=== PATIENT | male | born 1965 | race Caucasian/White ===

== ENCOUNTER → 2018-11-17 | Outpatient (CLI) | payer BC ==
[~2018-11-17] MED LIST: ASPI-808 PO; OXYC-529 PO
--- NOTE | 2018-11-17 09:41 | Diagnostic Imaging Report ---
Indication: Mid back pain. Technique: Multiplanar and multisequence acquisitions were acquired through the thoracic spine without the use of gadolinium. Findings: The alignment of thoracic spine is normal. Vertebral body heights are well maintained. There are mild degenerative changes. No fracture or traumatic subluxation. 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 The visualized portions of the spinal cord are normal signal intensity and morphology. The conus medullaris is seen at L1 and is normal in appearance. The subarachnoid space both anterior and posterior to the cord is well-maintained. There is no focal disc extrusion or high-grade spinal stenosis. Impression: Mild thoracic spondylosis, otherwise unremarkable. Dictated by: Dictated on workstation # [id number]
--- NOTE | 2018-11-17 09:51 | Diagnostic Imaging Report ---
PROCEDURE: MRI lumbar spine. TECHNIQUE: Multiplanar, multisequence MRI of the lumbar spine was performed without contrast. INDICATION: Mid and low back pain, right buttock and hip pain. No prior studies are available for comparison. Curvature and alignment of the lumbar spine is normal. There is a marrow replacing lesion involving the L4 vertebral body. This involves the right half of the L4 vertebral body measuring approximately 3.9 cm AP x 4.0 cm transverse. Abnormal soft tissue extends into the right pedicle and appears to be extension of abnormal tissue beyond the confines of the posterior cortex of the vertebral body into the anterior epidural space. This does produce compression upon the thecal sac and narrowing of the central canal. There is also significant narrowing of right lateral recess at this level as well as moderate narrowing of the right neural foramen. Left neural foramen is patent. The remaining levels of the lumbar spine are unremarkable and demonstrate normal vertebral body height and signal intensity. There is fairly normal height and signal intensity to the lumbar intervertebral discs. The conus is unremarkable at the T12-L1 level. T12-L1: Central canal and neural foramina are widely patent. L1-2: Unremarkable. L2-3: There is some mild ligamentous thickening but no central canal or neural foraminal stenosis is seen. L3-4: There is some ligamentous thickening and facet changes but central canal remains patent. Neural foramina are patent. L4-5: There are hypertrophic facet changes and broad-based disc/osteophyte complex. Narrowing by the abnormal marrow replacing lesion of L4 is again noted within the right neural foramen and central canal. L5-S1: There are some degenerative disc changes but no significant central canal or neural foraminal stenosis is seen. Paraspinous tissues are unremarkable. IMPRESSION: There is a expansile marrow replacing lesion involving the L4 vertebral body which extends into the right pedicle as well as demonstrates some extraosseous tissue expansion into the spinal canal and anterior epidural space. This does narrow the central canal as well as right lateral recess and right neural foramen. This is concerning for a neoplastic process such as metastatic disease or myeloma. Dictated by: Dictated on workstation # [id number]
== END ==
LOC: RAD 08:04
PROVIDERS: ATTEND Nurse Practitioner Family
DX: M48.061 Spinal stenosis, lumbar region without neurogenic claudication (principal); M47.26 Other spondylosis with radiculopathy, lumbar region; M47.24 Other spondylosis with radiculopathy, thoracic region
CPT/HCPCS: 72146; 72148

== ENCOUNTER 2018-11-26 06:59 | Day surgery (SDC) | payer BC ==
[2018-11-26] VITALS (10 sets, daily range): BP systolic 106–140; BP diastolic 69–95
[~2018-11-26] VITALS: Ht 170.2 cm; Wt 86.2 kg
--- OUTSIDE RECORDS SUMMARY | 2018-11-26 07:03 | XMS REPORT ---
Author Author ROSAMARIA ONEILL [facility] Address Unknown Care Team Providers Care Magistrate Judge Name Role Phone ROSAMARIA ONEILL Unavailable PROBLEMS Unknown Problems ALLERGIES No Known Allergies ENCOUNTERS Encounter Location Date Diagnosis [facility] [address] [facility] [id number] [id number] Jun, [facility] [id number] [id number] Apr, Dental examination Z01.20 and Caries K02.9 IMMUNIZATIONS No Known Immunizations SOCIAL HISTORY Never Assessed REASON FOR VISIT [facility] PLAN OF CARE Activity Details Follow Up prn Reason:hygiene/reevaluation VITAL SIGNS Blood pressure systolic 145 mmHg 2018-05-15 Blood pressure diastolic 93 mmHg 2018-05-15 MEDICATIONS Medication Instructions Dosage Frequency Start Date End Date Duration Status ibuprofen Active RESULTS No Results PROCEDURES Procedure Date Ordered Result Body Site COMP ORAL EVALUATION - NEW/EST PT May 15, 2018 INTRAORL-PERIAPICAL 1 FILM [id number] May 15, 2018 BITEWINGS - FOUR FILMS May 15, 2018 INTRAORL-PERIAPICAL EA ADD FILM May 15, 2018 EXTRAC ERUPTED TOOTH/EXPOSED ROOT May 15, 2018 PANORAMIC FILM SEE ALSO CODE [id number] May 15, 2018 INSTRUCTIONS MEDICATIONS ADMINISTERED No Known Medications MEDICAL (GENERAL) HISTORY Type Description Date Medical History Irregular heart beat Medical History Nerve and disc damage Medical History Pre hypertesion Surgical History [place] 2013
--- OUTSIDE RECORDS SUMMARY | 2018-11-26 07:03 | XMS REPORT ---
Author Author ROSAMARIA ONEILL [facility] Address Unknown Care Team Providers Care Senior Stereo Compiler Team Lead Name Role Phone ROSAMARIA ONEILL Unavailable PROBLEMS Unknown Problems ALLERGIES No Known Allergies ENCOUNTERS Encounter Location Date Diagnosis [facility] [id number] [phone] Jun, [facility] [address] [id number] [place] [id number] May, Dental examination Z01.20 [facility] [address] [phone] Apr, Dental examination Z01.20 and Caries K02.9 IMMUNIZATIONS No Known Immunizations SOCIAL HISTORY Never Assessed REASON FOR VISIT post op te pain PLAN OF CARE Activity Details Follow Up prn Reason:hygiene VITAL SIGNS Blood pressure systolic 135 mmHg 2018-05-30 Blood pressure diastolic 87 mmHg 2018-05-30 MEDICATIONS Medication Instructions Dosage Frequency Start Date End Date Duration Status ibuprofen Active RESULTS No Results PROCEDURES Procedure Date Ordered Result Body Site INTRAORL-PERIAPICAL 1 FILM [id number] May 30, 2018 TX COMPS - UNUSUL CIRCUMSTANCES RPT May 30, 2018 Billing Notes on claim May 30, 2018 Dental no charge May 30, 2018 INSTRUCTIONS MEDICATIONS ADMINISTERED No Known Medications MEDICAL (GENERAL) HISTORY Type Description Date Medical History Irregular heart beat Medical History Nerve and disc damage Medical History Pre hypertesion Surgical History [place] 2013
--- OUTSIDE RECORDS SUMMARY | 2018-11-26 07:03 | XMS REPORT | Continuity of Care Document ---
Author Organization Unknown Address Unknown Allergies Active Description Code Type Severity Reaction Onset Reported/Identified Relationship to Patient Clinical Status Yes No Known Drug Allergies [id number] Drug Allergy Unknown N/A 01/22/2011 Medications There is no data. 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 Results There is no data. Encounters ACCT No. Visit Date/Time Discharge Status Pt. Type Provider Facility Loc./Unit Complaint [id number] 11/17/2018 08:04:00 11/17/2018 23:59:59 CLS Outpatient MOLLY HYATT APRN [facility] RAD RADICULOPATHY, LUMBAR REGION, LOW BACK PAIN [id number] 03/23/2014 08:00:00 03/23/2014 23:59:59 CLS Outpatient [id number] 11/24/2018 11:18:00 PEN Julio C BRUNNER MD, VADIM [facility] ONC [id number] 07/10/2018 11:45:00 07/10/2018 23:59:59 CLS [facility]
[2018-11-26 07:34] LABS: HEMOGLOBIN 15.6 G/DL (13.3-17.7); MEAN PLATELET VOLUME 11.2 FL (7.4-10.4); RED CELL DISTRIBUTION WIDTH 15.1 % (10.0-14.5); WHITE BLOOD COUNT 21.1 10^3/uL (4.3-11.0)
[2018-11-26 07:48] LABS: INR 0.9 (0.8-1.4); PROTHROMBIN TIME PATIENT 12.6 SEC (12.2-14.7)
[2018-11-26] MEDS ORDERED: NS IV 1000 ML 1,000 ML IV STA (08:07)
[2018-11-26] MEDS ORDERED: fentaNYL INJECTION 100 MCG/2 ML AMP IVP ONE (08:15)
[2018-11-26] MEDS ORDERED: MIDAZOLAM 2 MG/2 ML (VERSED) VIAL IVP ONE (08:15)
[2018-11-26] MEDS ORDERED: LIDOCAINE 1% INJ 20 ML 20 ML VIAL INJ ONE (08:15)
[2018-11-26] MEDS ORDERED: ASPI-808 PO (09:40)
[2018-11-26] MEDS ORDERED: OXYC-529 PO (09:45)
[2018-11-26] MEDS ORDERED: HYDROcodone/APAP 5 MG/325 MG (LORTAB) TAB PO PRN (10:15)
--- NOTE | 2018-11-26 12:02 | Diagnostic Imaging Report ---
INDICATION: Mass in the L4 vertebral body. TECHNIQUE AND FINDINGS: After explaining the risks, benefits, and alternatives of the procedure to the patient, written consent was obtained. The patient was placed on the CT scanner in the prone position. Conscious sedation was performed with 1 mg of Versed and 75 mcg of fentanyl under constant nursing supervision from 0931 to [address] scan was obtained for localization purposes. The patient's back was prepped and draped utilizing maximal sterile barrier technique. Local anesthesia was obtained with 2% lidocaine. An 18-gauge Temno needle was advanced in a transpedicular fashion into the L4 vertebral body. The first core biopsy obtained was sent for flow cytometry. Three subsequent cores were sent for cytology. A fine-needle aspiration was also performed. Following this, the needle was removed and adequate hemostasis was obtained. The patient tolerated the procedure well and left the Department in stable condition. IMPRESSION: Successful CT-guided biopsy of the L4 vertebral body as described. Dictated by: Dictated on workstation # [id number]
--- NOTE | 2018-11-26 12:15 | NUR ---
TAKING PO FLUIDS WITHOUT PROBLEM. ALERT, STATES HE HAS "THE USUAL BACK PAIN, BUT NOTHING NEW". OPSITE OVER GAUZE DSG REMAINS D/I TO LOW BACK PROCEDURE SITE, RIGHT SIDE OF SPINE. STATES HE IS READY FOR DISMISSAL. VOIDED PRIOR TO DISMISSAL, GAIT STEADY WITH CANE.
== END 2018-11-26 12:15 | disposition home or self-care (01) ==
LOC: RAD 06:59
PROVIDERS: ATTEND Internal Medicine Hematology & Oncology
DX: M89.9 Disorder of bone, unspecified (principal); M54.5 Low back pain; F17.290 Nicotine dependence, other tobacco product, uncomplicated
CPT/HCPCS: 36415; 77012; 85027; 85610; 85730; 99156

== ENCOUNTER → 2018-12-04 | Outpatient (CLI) | payer BC ==
--- NOTE | 2018-12-04 19:22 | Diagnostic Imaging Report ---
INDICATION: Multiple myeloma. TIME OF EXAM: 12:13 p.m. FINDINGS: Skeletal survey was performed. Calvarium is unremarkable. There are degenerative changes throughout the cervical, thoracic, and lumbar spine. No osteolytic or blastic lesions are seen. The ribs are unremarkable. Shoulder girdles are unremarkable. Long bones of upper and lower extremities are unremarkable. No osteolytic lesions are seen. IMPRESSION: Unremarkable skeletal survey. No osteolytic lesions are seen. Dictated by: Dictated on workstation # [id number]
== END ==
LOC: RAD 11:59
PROVIDERS: ATTEND Internal Medicine Hematology & Oncology
DX: C90.00 Multiple myeloma not having achieved remission (principal)
CPT/HCPCS: 77075

== ENCOUNTER → 2018-12-30 | Outpatient (CLI) | payer BC ==
--- NOTE | 2018-12-30 13:44 | Diagnostic Imaging Report ---
INDICATION: Plasmacytoma. TECHNIQUE: Serum blood glucose level at the time of injection is 122 mg/dL. Patient was administered 12.3 mCi F-18 FDG intravenously in left antecubital location and PET imaging was performed from the top of the skull through the mid thighs. FINDINGS: There is symmetric activity throughout the brain. Physiologic activity within the neck is seen. No abnormal hypermetabolism is identified. The mediastinum and rebecca are unremarkable. No pulmonary parenchymal hypermetabolism is detected. Abdomen and pelvis demonstrate physiologic activity within the GI and tracts. There is increased uptake identified in the L4 vertebral body at the site of the lytic expansile lesion that has been previously biopsied. This demonstrates SUV max of approximately 4.7. No other osseous hypermetabolism is identified. IMPRESSION: Solitary site of hypermetabolism involving the expansile lytic lesion of L4, which has been previously biopsied. No other significant abnormality is detected. Dictated by: Dictated on workstation # [id number]
== END ==
LOC: RAD 09:03
PROVIDERS: ATTEND Internal Medicine Hematology & Oncology
DX: C90.30 Solitary plasmacytoma not having achieved remission (principal)

== ENCOUNTER 2019-01-02 07:39 | Day surgery (SDC) | payer BC ==
[2019-01-02] VITALS (12 sets, daily range): BP systolic 114–148; BP diastolic 69–88
[~2019-01-02] VITALS: Ht 170.2 cm; Wt 84.9 kg
--- NOTE | 2019-01-02 07:50 | NUR ---
ANNABELLE GUPTA admitted to room 414-1, with an admitting diagnosis of SCHEDULED BONE MARROW BX , on 01/02/19 from HOME via W/C, accompanied by STAFF.ANNABELLE GUPTA introduced to surroundings, call light, bed controls, phone, TV, temperature control, lights, meal times, smoking policy, visitor policy, side rail policy, bathrooms and showers. Patient Rights given to patient in the handbook.ANNABELLE GUPTA verbalizes understanding that [facility] is not responsible for the loss or damage to any personal effects or valuables that are kept in the patients posession during their hospitalization. The following Patient Care Plans were discussed with the PT AND : Discharge Planning, PAIN CONTROL,IV MEDS , and PROCEDURE POST AND PRE OP. ANNABELLE GUPTA verbalizes understanding of Interdisciplinary Patient Education. Patient and/or family were informed about the Rapid Response Team and its purpose.
[2019-01-02] MEDS ORDERED: NS IV 1000 ML 1,000 ML IV STA (07:57)
[2019-01-02] MEDS ORDERED: MIDAZOLAM 2 MG/2 ML (VERSED) VIAL IVP ONE (08:00)
[2019-01-02] MEDS ORDERED: LIDOCAINE 1% INJ 20 ML 20 ML VIAL INJ ONE (08:00)
[2019-01-02] MEDS ORDERED: fentaNYL INJECTION 100 MCG/2 ML AMP IVP ONE (08:00)
[2019-01-02] MEDS ORDERED: CATHETER FLUSH 10 ML SYR IV PRN (08:30)
[2019-01-02 08:40] LABS: ABSOLUTE RETIC # 26 10e9/L (24-90); BASOPHILS % (AUTO) 0 % (0-10); EOSINOPHILS # (AUTO) 0.2 10^3/uL (0.0-0.3); EOSINOPHILS % (AUTO) 2 % (0-10); HEMATOCRIT 41 % (40-54); HEMOGLOBIN 14.2 G/DL (13.3-17.7); LYMPHOCYTES # (AUTO) 2.1 X 10^3 (1.0-4.0); LYMPHOCYTES % (AUTO) 18 % (12-44); MEAN CORPUSCULAR HEMOGLOBIN 33 PG (25-34); MEAN CORPUSCULAR HGB CONC 35 G/DL (32-36); MEAN CORPUSCULAR VOLUME 94 FL (80-99); MEAN PLATELET VOLUME 11.1 FL (7.4-10.4); MONOCYTES % (AUTO) 8 % (0-12); NEUTROPHILS # (AUTO) 8.8 X 10^3 (1.8-7.8); NEUTROPHILS % (AUTO) 73 % (42-75); PLATELET COUNT 216 10^3/uL (130-400); RED CELL DISTRIBUTION WIDTH 14.8 % (10.0-14.5); WHITE BLOOD COUNT 12.1 10^3/uL (4.3-11.0)
[2019-01-02 09:11] LABS: INR 0.9 (0.8-1.4); PROTHROMBIN TIME PATIENT 12.6 SEC (12.2-14.7)
--- NOTE | 2019-01-02 09:15 | NUR ---
TO RADIOLOGY PER CART FOR BONE MARROW BX.
[2019-01-02 09:22] LABS: BAND NEUTROPHILS 0 %; BASOPHILS % (MANUAL) 0 %; EOSINOPHILS % (MANUAL) 1 %; LYMPHOCYTES % (MANUAL) 20 %; MONOCYTES % (MANUAL) 4 %; NEUTROPHILS % (MANUAL) 75 %; RBC MORPH NORMAL
--- NOTE | 2019-01-02 10:05 | NUR ---
RETURNED FROM RADIOLOGY PER CART. SKIN W/D. DENIES PAIN. DRESSING TO RIGHT BONE MARROW SITE BX. D/I. V/S= 155/63 TEMP=97 PULSE-62 RESP=20 O2 SAT=94 % ON R/A. HOB UP 20 DEGREES. AT BEDSIDE.
[2019-01-02] MEDS ORDERED: HYDROcodone/APAP 5 MG/325 MG (LORTAB) TAB PO PRN (10:30)
--- NOTE | 2019-01-02 11:00 | NUR ---
DRESSING TO RIGHT HIP/BUTTOCKS AREA CLEAN AND DRY WITH GAUZE DRESSING AND TAPE. NO EDEMA NOTED. SKIN W/D. RESP. REGULAR. AT BEDSIDE.
--- NOTE | 2019-01-02 12:20 | NUR ---
ANNABELLE GUPTA demonstrates understanding of discharge instructions and accurately returns instructions upon questioning. Copy of Post-Discharge Instructions given to PT. ANNABELLE GUPTA is able to manage continuing needs after discharge. Patients belongings returned to PT. Patient discharged from [facility] on 01/02/19 at 1220 . ANNABELLE GUPTA left floor via W/C, accompanied by STAFF AND PER AUTO.
--- NOTE | 2019-01-02 12:27 | Diagnostic Imaging Report ---
Indication: Plasmacytoma. Patient was brought to the CT suite, placed on the table in the prone position. Axial imaging through the pelvis was performed to evaluate appropriate entry site. Study was performed utilizing conscious sedation with radiology nursing and constant monitoring. Patient was administered a total of 100 ? of fentanyl intravenously and 2 mg of Versed intravenously. Total procedure time was 8 minutes. Right posterior pelvis was prepped and draped in the usual sterile fashion. A small amount of 1% lidocaine was utilized for local anesthesia. Biopsy needle was advanced, placed with its tip adjacent to the posterior cortex of the right iliac bone. A needle was advanced through the cortex into the marrow utilizing bone marrow drill. Two aspirations were performed. Next, a core biopsy of the marrow was obtained utilizing the drill. Needle was withdrawn, hemostasis was obtained using manual compression. Patient tolerated the procedure well and left the department in stable condition. Impression: Successful CT-guided bone marrow aspiration and biopsy, utilizing conscious sedation. Pathology results are currently pending. Dictated by: Dictated on workstation # [id number]
[2019-01-02] MEDS ORDERED: CATHETER FLUSH 10 ML SYR IV SCH (14:00)
--- NOTE | 2019-01-02 14:18 | Pre-Op Note & Conscious Sedat ---
Pre-Operative Progress Note H&P Reviewed The H&P was reviewed, patient examined and no changes noted. Date H&P Reviewed: Jan 02, 2019 Time H&P Reviewed: 08:00 Pre-Op Diagnosis: Plasmacytoma Conscious Sedation Pre-Proced ASA Score 2 For ASA 3 and 4: Consider anesthesia and medical clearance. Also, for patients with a history of failed moderate sedation consider anesthesia. Airway Lungs Heart ASA score ASA 1: a normal healthy patient ASA 2: a patient with a mild systemic disease (mid diabetes, controlled hypertension, obesity ASA 3: a patient with a severe systemic disease that limits activity (angina, COPD, prior Myocardial infarction) ASA 4: a patient with an incapacitating disease that is a constant threat to life (CHF, renal failure) ASA 5: a moribund patient not expected to survive 24 hrs. (ruptured aneurysm) ASA 6: a declared brain- patient whose organs are being harvested. For emergent operations, add the letter E after the classification Mallampati Classification Grade 2 Sedation Plan Analgesia, Amnesia, Plan communicated to team members, Discussed options with patient/fam, Discussed risks with patient/fam The patient is an appropriate candidate to undergo the planned procedure, sedation, and anesthesia. The patient immediately re-assessed prior to indication. DOMINICK TOBIAS MD Jan 02, 2019 14:18
== END 2019-01-02 12:20 | disposition home or self-care (01) ==
LOC: RAD 07:39 → 4TH 07:45 → RAD 12:20 → 4TH 13:56
PROVIDERS: ATTEND Internal Medicine Hematology & Oncology
DX: C90.30 Solitary plasmacytoma not having achieved remission (principal)
CPT/HCPCS: 36415; 38222; 77012; 85007; 85027; 85045; 85610; 85730; 99156

== ENCOUNTER 2019-02-10 13:27 | Outpatient (RCR) | payer BC ==
[2018-12-04 11:48] LABS: BASOPHILS % (AUTO) 0 % (0-10); EOSINOPHILS # (AUTO) 0.1 10^3/uL (0.0-0.3); EOSINOPHILS % (AUTO) 1 % (0-10); HEMATOCRIT 42 % (40-54); HEMOGLOBIN 14.3 G/DL (13.3-17.7); LYMPHOCYTES # (AUTO) 2.6 X 10^3 (1.0-4.0); LYMPHOCYTES % (AUTO) 27 % (12-44); MEAN CORPUSCULAR HEMOGLOBIN 32 PG (25-34); MEAN CORPUSCULAR HGB CONC 34 G/DL (32-36); MEAN CORPUSCULAR VOLUME 95 FL (80-99); MEAN PLATELET VOLUME 10.9 FL (7.4-10.4); MONOCYTES # (AUTO) 0.8 X 10^3 (0.0-1.0); MONOCYTES % (AUTO) 8 % (0-12); NEUTROPHILS # (AUTO) 6.1 X 10^3 (1.8-7.8); NEUTROPHILS % (AUTO) 64 % (42-75); PLATELET COUNT 279 10^3/uL (130-400); RED CELL DISTRIBUTION WIDTH 14.9 % (10.0-14.5); WHITE BLOOD COUNT 9.6 10^3/uL (4.3-11.0)
[2018-12-04 12:14] LABS: ALANINE AMINOTRANSFERASE 30 U/L (0-55); ALKALINE PHOSPHATASE 63 U/L (40-136); BILIRUBIN,TOTAL 0.2 MG/DL (0.1-1.0); BUN/CREATININE RATIO 20; CALCIUM 9.5 MG/DL (8.5-10.1); CARBON DIOXIDE 20 MMOL/L (21-32); CHLORIDE 108 MMOL/L (98-107); CREATININE SERUM 0.85 MG/DL (0.60-1.30); GFR ESTIMATED > 60; GLUCOSE 96 MG/DL (70-105); POTASSIUM 4.2 MMOL/L (3.6-5.0); SODIUM 138 MMOL/L (135-145); TOTAL PROTEIN 7.4 GM/DL (6.4-8.2)
[2018-12-25 10:43] LABS: BASOPHILS % (AUTO) 0 % (0-10); EOSINOPHILS # (AUTO) 0.1 10^3/uL (0.0-0.3); EOSINOPHILS % (AUTO) 1 % (0-10); HEMATOCRIT 41 % (40-54); HEMOGLOBIN 14.1 G/DL (13.3-17.7); LYMPHOCYTES # (AUTO) 1.8 X 10^3 (1.0-4.0); LYMPHOCYTES % (AUTO) 18 % (12-44); MEAN CORPUSCULAR HEMOGLOBIN 32 PG (25-34); MEAN CORPUSCULAR HGB CONC 34 G/DL (32-36); MEAN CORPUSCULAR VOLUME 93 FL (80-99); MEAN PLATELET VOLUME 11.4 FL (7.4-10.4); MONOCYTES # (AUTO) 0.7 X 10^3 (0.0-1.0); MONOCYTES % (AUTO) 7 % (0-12); NEUTROPHILS # (AUTO) 7.6 X 10^3 (1.8-7.8); NEUTROPHILS % (AUTO) 75 % (42-75); PLATELET COUNT 207 10^3/uL (130-400); WHITE BLOOD COUNT 10.2 10^3/uL (4.3-11.0)
[2018-12-25 11:07] LABS: ALANINE AMINOTRANSFERASE 22 U/L (0-55); ALBUMIN 4.1 GM/DL (3.2-4.5); ALKALINE PHOSPHATASE 67 U/L (40-136); BILIRUBIN,TOTAL 0.2 MG/DL (0.1-1.0); BUN/CREATININE RATIO 18; CALCIUM 9.3 MG/DL (8.5-10.1); CARBON DIOXIDE 19 MMOL/L (21-32); CHLORIDE 108 MMOL/L (98-107); CREATININE SERUM 0.87 MG/DL (0.60-1.30); GFR ESTIMATED > 60; GLUCOSE 103 MG/DL (70-105); POTASSIUM 4.6 MMOL/L (3.6-5.0); SODIUM 137 MMOL/L (135-145); TOTAL PROTEIN 7.3 GM/DL (6.4-8.2)
--- NOTE | 2019-01-02 12:54 | Pre-Op Note & Conscious Sedat ---
Pre-Operative Progress Note H&P Reviewed The H&P was reviewed, patient examined and no changes noted. Date H&P Reviewed: Jan 02, 2019 Time H&P Reviewed: 08:00 Pre-Op Diagnosis: Plasmacytoma Conscious Sedation Pre-Proced Time 08:00 ASA Score 2 For ASA 3 and 4: Consider anesthesia and medical clearance. Also, for patients with a history of failed moderate sedation consider anesthesia. Airway Lungs Heart ASA score ASA 1: a normal healthy patient ASA 2: a patient with a mild systemic disease (mid diabetes, controlled hypertension, obesity ASA 3: a patient with a severe systemic disease that limits activity (angina, COPD, prior Myocardial infarction) ASA 4: a patient with an incapacitating disease that is a constant threat to life (CHF, renal failure) ASA 5: a moribund patient not expected to survive 24 hrs. (ruptured aneurysm) ASA 6: a declared brain- patient whose organs are being harvested. For emergent operations, add the letter E after the classification Mallampati Classification Grade 2 Sedation Plan Analgesia, Amnesia, Plan communicated to team members, Discussed options with patient/fam, Discussed risks with patient/fam The patient is an appropriate candidate to undergo the planned procedure, sedation, and anesthesia. The patient immediately re-assessed prior to indication. DOMINICK TOBIAS MD Jan 02, 2019 12:54
[2019-02-10 13:55] LABS: BASOPHILS % (AUTO) 0 % (0-10); EOSINOPHILS # (AUTO) 0.1 10^3/uL (0.0-0.3); EOSINOPHILS % (AUTO) 1 % (0-10); HEMATOCRIT 47 % (40-54); LYMPHOCYTES # (AUTO) 2.6 X 10^3 (1.0-4.0); LYMPHOCYTES % (AUTO) 28 % (12-44); MEAN CORPUSCULAR HEMOGLOBIN 32 PG (25-34); MEAN CORPUSCULAR HGB CONC 34 G/DL (32-36); MEAN CORPUSCULAR VOLUME 92 FL (80-99); MONOCYTES # (AUTO) 0.9 X 10^3 (0.0-1.0); MONOCYTES % (AUTO) 10 % (0-12); NEUTROPHILS # (AUTO) 5.5 X 10^3 (1.8-7.8); NEUTROPHILS % (AUTO) 61 % (42-75); PLATELET COUNT 281 10^3/uL (130-400); RED CELL DISTRIBUTION WIDTH 14.9 % (10.0-14.5); WHITE BLOOD COUNT 9.1 10^3/uL (4.3-11.0)
[2019-02-10 14:14] LABS: ALANINE AMINOTRANSFERASE 23 U/L (0-55); ALBUMIN 4.5 GM/DL (3.2-4.5); ALKALINE PHOSPHATASE 68 U/L (40-136); BILIRUBIN,TOTAL 0.3 MG/DL (0.1-1.0); BUN/CREATININE RATIO 13; CARBON DIOXIDE 20 MMOL/L (21-32); CHLORIDE 106 MMOL/L (98-107); CREATININE SERUM 1.03 MG/DL (0.60-1.30); GFR ESTIMATED > 60; GLUCOSE 108 MG/DL (70-105); SODIUM 137 MMOL/L (135-145); TOTAL PROTEIN 7.8 GM/DL (6.4-8.2)
== END 2019-02-22 | disposition home or self-care (01) ==
LOC: ONC 13:27
PROVIDERS: ATTEND Internal Medicine Hematology & Oncology
DX: M54.5 Low back pain (principal); M89.9 Disorder of bone, unspecified; F17.290 Nicotine dependence, other tobacco product, uncomplicated
CPT/HCPCS: 36415; 77290; 77295; 77300; 77334; 77336; 77417; 77470; 80053; 83883; 84155; 84165; 85025; 99202; 99204; 99213; 99214

== ENCOUNTER → 2019-02-18 | Outpatient (CLI) | payer BC ==
--- NOTE | 2019-02-18 09:44 | Diagnostic Imaging Report ---
PROCEDURE: MRI lumbar spine. TECHNIQUE: Multiplanar, multisequence MRI of the lumbar spine was performed without contrast. INDICATION: Back pain, multiple myeloma. FINDINGS: The previous MRI lumbar spine exam performed on 11/17/2018 noted an expansile lesion involving the marrow of the L4 vertebral body. There was also extension into the right pedicle of L4. The mass in this area measured 3.9 x 3.9 cm. On this exam, that finding is again evident. The mass does measure somewhat smaller and is estimated now to be 3.5 x 3.9 cm. There also appears to be less compression of the ventral aspect of the thecal sac by the mass than noted on the prior exam. The AP diameter of the thecal sac now measures approximately 11.1 mm as opposed to 8.9 mm on the prior study. However, there is still narrowing of the neuroforamen on the right at this level. The overall appearance of the lumbar spine has not changed significantly otherwise. No new abnormality has developed. There is no sign of a paraspinal mass. IMPRESSION: 1. The expansile mass involving the vertebral body and right pedicle of L4 seen previously has diminished in size. There is less mass effect upon the thecal sac in this area but there is still narrowing of the neuroforamen on the right. 2. The overall appearance of the lumbar spine is otherwise unchanged. No new abnormality has developed. Dictated by: Dictated on workstation # [id number]
== END ==
LOC: RAD 07:33
PROVIDERS: ATTEND Internal Medicine Hematology & Oncology
DX: C90.00 Multiple myeloma not having achieved remission (principal); M48.8X6 Other specified spondylopathies, lumbar region; M48.061 Spinal stenosis, lumbar region without neurogenic claudication
CPT/HCPCS: 72148

== ENCOUNTER 2019-05-19 13:32 | Outpatient (RCR) | payer BC ==
[2019-03-10 14:21] LABS: BASOPHILS % (AUTO) 0 % (0-10); EOSINOPHILS # (AUTO) 0.1 10^3/uL (0.0-0.3); EOSINOPHILS % (AUTO) 1 % (0-10); HEMATOCRIT 43 % (40-54); HEMOGLOBIN 14.4 G/DL (13.3-17.7); LYMPHOCYTES # (AUTO) 1.9 X 10^3 (1.0-4.0); LYMPHOCYTES % (AUTO) 17 % (12-44); MEAN CORPUSCULAR HEMOGLOBIN 32 PG (25-34); MEAN CORPUSCULAR HGB CONC 34 G/DL (32-36); MEAN CORPUSCULAR VOLUME 94 FL (80-99); MEAN PLATELET VOLUME 11.4 FL (7.4-10.4); MONOCYTES # (AUTO) 0.8 X 10^3 (0.0-1.0); MONOCYTES % (AUTO) 7 % (0-12); NEUTROPHILS % (AUTO) 75 % (42-75); PLATELET COUNT 267 10^3/uL (130-400); WHITE BLOOD COUNT 10.8 10^3/uL (4.3-11.0)
[2019-03-10 14:39] LABS: ALANINE AMINOTRANSFERASE 34 U/L (0-55); ALBUMIN 4.4 GM/DL (3.2-4.5); ALKALINE PHOSPHATASE 78 U/L (40-136); BILIRUBIN,TOTAL 0.4 MG/DL (0.1-1.0); BUN/CREATININE RATIO 14; CALCIUM 9.9 MG/DL (8.5-10.1); CARBON DIOXIDE 20 MMOL/L (21-32); CHLORIDE 108 MMOL/L (98-107); CREATININE SERUM 0.85 MG/DL (0.60-1.30); GFR ESTIMATED > 60; GLUCOSE 97 MG/DL (70-105); POTASSIUM 4.4 MMOL/L (3.6-5.0); SODIUM 140 MMOL/L (135-145); TOTAL PROTEIN 8.2 GM/DL (6.4-8.2)
[2019-03-17 13:53] LABS: BASOPHILS % (AUTO) 0 % (0-10); EOSINOPHILS % (AUTO) 0 % (0-10); HEMATOCRIT 42 % (40-54); HEMOGLOBIN 14.1 G/DL (13.3-17.7); LYMPHOCYTES # (AUTO) 0.8 X 10^3 (1.0-4.0); LYMPHOCYTES % (AUTO) 8 % (12-44); MEAN CORPUSCULAR HEMOGLOBIN 32 PG (25-34); MEAN CORPUSCULAR HGB CONC 34 G/DL (32-36); MEAN CORPUSCULAR VOLUME 95 FL (80-99); MEAN PLATELET VOLUME 11.7 FL (7.4-10.4); MONOCYTES # (AUTO) 0.1 X 10^3 (0.0-1.0); MONOCYTES % (AUTO) 1 % (0-12); NEUTROPHILS # (AUTO) 9.3 X 10^3 (1.8-7.8); NEUTROPHILS % (AUTO) 91 % (42-75); PLATELET COUNT 195 10^3/uL (130-400); RED CELL DISTRIBUTION WIDTH 15.2 % (10.0-14.5); WHITE BLOOD COUNT 10.2 10^3/uL (4.3-11.0)
[2019-03-17 14:14] LABS: BUN/CREATININE RATIO 14; CALCIUM 9.4 MG/DL (8.5-10.1); CARBON DIOXIDE 20 MMOL/L (21-32); CHLORIDE 107 MMOL/L (98-107); GFR ESTIMATED > 60; GLUCOSE 144 MG/DL (70-105); POTASSIUM 3.9 MMOL/L (3.6-5.0); SODIUM 137 MMOL/L (135-145)
[2019-03-24 13:52] LABS: BASOPHILS % (AUTO) 0 % (0-10); EOSINOPHILS % (AUTO) 0 % (0-10); HEMATOCRIT 42 % (40-54); LYMPHOCYTES # (AUTO) 0.9 X 10^3 (1.0-4.0); LYMPHOCYTES % (AUTO) 7 % (12-44); MEAN CORPUSCULAR HEMOGLOBIN 32 PG (25-34); MEAN CORPUSCULAR HGB CONC 33 G/DL (32-36); MEAN CORPUSCULAR VOLUME 96 FL (80-99); MEAN PLATELET VOLUME 11.3 FL (7.4-10.4); MONOCYTES # (AUTO) 0.2 X 10^3 (0.0-1.0); MONOCYTES % (AUTO) 2 % (0-12); NEUTROPHILS # (AUTO) 11.8 X 10^3 (1.8-7.8); NEUTROPHILS % (AUTO) 91 % (42-75); PLATELET COUNT 270 10^3/uL (130-400); RED CELL DISTRIBUTION WIDTH 15.9 % (10.0-14.5); WHITE BLOOD COUNT 12.9 10^3/uL (4.3-11.0)
[2019-03-24 14:07] LABS: BUN/CREATININE RATIO 14; CALCIUM 9.1 MG/DL (8.5-10.1); CARBON DIOXIDE 17 MMOL/L (21-32); CHLORIDE 107 MMOL/L (98-107); CREATININE SERUM 0.83 MG/DL (0.60-1.30); GFR ESTIMATED > 60; GLUCOSE 121 MG/DL (70-105); POTASSIUM 3.9 MMOL/L (3.6-5.0); SODIUM 137 MMOL/L (135-145)
[2019-03-31 13:47] LABS: BASOPHILS % (AUTO) 0 % (0-10); EOSINOPHILS % (AUTO) 0 % (0-10); HEMATOCRIT 39 % (40-54); HEMOGLOBIN 13.2 G/DL (13.3-17.7); LYMPHOCYTES # (AUTO) 0.8 X 10^3 (1.0-4.0); LYMPHOCYTES % (AUTO) 7 % (12-44); MEAN CORPUSCULAR HEMOGLOBIN 33 PG (25-34); MEAN CORPUSCULAR HGB CONC 34 G/DL (32-36); MEAN CORPUSCULAR VOLUME 97 FL (80-99); MEAN PLATELET VOLUME 11.6 FL (7.4-10.4); MONOCYTES # (AUTO) 0.2 X 10^3 (0.0-1.0); MONOCYTES % (AUTO) 2 % (0-12); NEUTROPHILS # (AUTO) 9.3 X 10^3 (1.8-7.8); NEUTROPHILS % (AUTO) 91 % (42-75); PLATELET COUNT 224 10^3/uL (130-400); RED CELL DISTRIBUTION WIDTH 16.1 % (10.0-14.5); WHITE BLOOD COUNT 10.3 10^3/uL (4.3-11.0)
[2019-03-31 14:01] LABS: BUN/CREATININE RATIO 15; CALCIUM 8.9 MG/DL (8.5-10.1); CARBON DIOXIDE 20 MMOL/L (21-32); CHLORIDE 111 MMOL/L (98-107); CREATININE SERUM 0.78 MG/DL (0.60-1.30); GFR ESTIMATED > 60; GLUCOSE 112 MG/DL (70-105); POTASSIUM 3.9 MMOL/L (3.6-5.0); SODIUM 140 MMOL/L (135-145)
[2019-04-07 09:31] LABS: BASOPHILS % (AUTO) 0 % (0-10); EOSINOPHILS # (AUTO) 0.1 10^3/uL (0.0-0.3); EOSINOPHILS % (AUTO) 1 % (0-10); HEMATOCRIT 46 % (40-54); HEMOGLOBIN 15.6 G/DL (13.3-17.7); LYMPHOCYTES # (AUTO) 1.3 X 10^3 (1.0-4.0); LYMPHOCYTES % (AUTO) 12 % (12-44); MEAN CORPUSCULAR HEMOGLOBIN 32 PG (25-34); MEAN CORPUSCULAR HGB CONC 34 G/DL (32-36); MEAN CORPUSCULAR VOLUME 94 FL (80-99); MONOCYTES # (AUTO) 0.4 X 10^3 (0.0-1.0); MONOCYTES % (AUTO) 4 % (0-12); NEUTROPHILS # (AUTO) 9.1 X 10^3 (1.8-7.8); NEUTROPHILS % (AUTO) 83 % (42-75); PLATELET COUNT 326 10^3/uL (130-400); RED CELL DISTRIBUTION WIDTH 16.1 % (10.0-14.5); WHITE BLOOD COUNT 10.9 10^3/uL (4.3-11.0)
[2019-04-07 09:50] LABS: ALANINE AMINOTRANSFERASE 32 U/L (0-55); ALBUMIN 4.5 GM/DL (3.2-4.5); ALKALINE PHOSPHATASE 88 U/L (40-136); BILIRUBIN,TOTAL 0.5 MG/DL (0.1-1.0); BUN/CREATININE RATIO 19; CALCIUM 9.7 MG/DL (8.5-10.1); CARBON DIOXIDE 18 MMOL/L (21-32); CHLORIDE 106 MMOL/L (98-107); CREATININE SERUM 0.96 MG/DL (0.60-1.30); GFR ESTIMATED > 60; GLUCOSE 135 MG/DL (70-105); POTASSIUM 4.3 MMOL/L (3.6-5.0); SODIUM 135 MMOL/L (135-145); TOTAL PROTEIN 7.9 GM/DL (6.4-8.2)
[2019-04-14 13:03] LABS: BASOPHILS # (AUTO) 0.1 10^3/uL (0.0-0.1); BASOPHILS % (AUTO) 0 % (0-10); EOSINOPHILS # (AUTO) 0.1 10^3/uL (0.0-0.3); EOSINOPHILS % (AUTO) 0 % (0-10); HEMATOCRIT 44 % (40-54); LYMPHOCYTES # (AUTO) 1.1 X 10^3 (1.0-4.0); LYMPHOCYTES % (AUTO) 8 % (12-44); MEAN CORPUSCULAR HEMOGLOBIN 32 PG (25-34); MEAN CORPUSCULAR HGB CONC 34 G/DL (32-36); MEAN CORPUSCULAR VOLUME 95 FL (80-99); MEAN PLATELET VOLUME 12.1 FL (7.4-10.4); MONOCYTES # (AUTO) 0.2 X 10^3 (0.0-1.0); MONOCYTES % (AUTO) 1 % (0-12); NEUTROPHILS # (AUTO) 12.6 X 10^3 (1.8-7.8); NEUTROPHILS % (AUTO) 90 % (42-75); PLATELET COUNT 253 10^3/uL (130-400); RED CELL DISTRIBUTION WIDTH 16.4 % (10.0-14.5)
[2019-04-14 13:19] LABS: BUN/CREATININE RATIO 13; CALCIUM 9.4 MG/DL (8.5-10.1); CARBON DIOXIDE 19 MMOL/L (21-32); CHLORIDE 110 MMOL/L (98-107); CREATININE SERUM 0.97 MG/DL (0.60-1.30); GFR ESTIMATED > 60; GLUCOSE 125 MG/DL (70-105); POTASSIUM 4.4 MMOL/L (3.6-5.0); SODIUM 140 MMOL/L (135-145)
[2019-04-21 13:19] LABS: BASOPHILS % (AUTO) 0 % (0-10); EOSINOPHILS % (AUTO) 0 % (0-10); HEMATOCRIT 41 % (40-54); LYMPHOCYTES # (AUTO) 0.9 X 10^3 (1.0-4.0); LYMPHOCYTES % (AUTO) 5 % (12-44); MEAN CORPUSCULAR HEMOGLOBIN 32 PG (25-34); MEAN CORPUSCULAR HGB CONC 34 G/DL (32-36); MEAN CORPUSCULAR VOLUME 95 FL (80-99); MEAN PLATELET VOLUME 11.6 FL (7.4-10.4); MONOCYTES # (AUTO) 0.3 X 10^3 (0.0-1.0); MONOCYTES % (AUTO) 2 % (0-12); NEUTROPHILS # (AUTO) 15.8 X 10^3 (1.8-7.8); NEUTROPHILS % (AUTO) 93 % (42-75); PLATELET COUNT 307 10^3/uL (130-400); RED CELL DISTRIBUTION WIDTH 16.6 % (10.0-14.5); WHITE BLOOD COUNT 17.1 10^3/uL (4.3-11.0)
[2019-04-21 13:44] LABS: BUN/CREATININE RATIO 11; CALCIUM 9.1 MG/DL (8.5-10.1); CARBON DIOXIDE 21 MMOL/L (21-32); CHLORIDE 110 MMOL/L (98-107); CREATININE SERUM 0.91 MG/DL (0.60-1.30); GFR ESTIMATED > 60; GLUCOSE 106 MG/DL (70-105); POTASSIUM 4.2 MMOL/L (3.6-5.0); SODIUM 139 MMOL/L (135-145)
[2019-04-28 13:16] LABS: BASOPHILS % (AUTO) 0 % (0-10); EOSINOPHILS % (AUTO) 0 % (0-10); HEMATOCRIT 39 % (40-54); HEMOGLOBIN 13.3 G/DL (13.3-17.7); LYMPHOCYTES # (AUTO) 1.6 X 10^3 (1.0-4.0); LYMPHOCYTES % (AUTO) 13 % (12-44); MEAN CORPUSCULAR HEMOGLOBIN 32 PG (25-34); MEAN CORPUSCULAR HGB CONC 34 G/DL (32-36); MEAN CORPUSCULAR VOLUME 95 FL (80-99); MEAN PLATELET VOLUME 11.7 FL (7.4-10.4); MONOCYTES # (AUTO) 1.6 X 10^3 (0.0-1.0); MONOCYTES % (AUTO) 13 % (0-12); NEUTROPHILS # (AUTO) 8.6 X 10^3 (1.8-7.8); NEUTROPHILS % (AUTO) 73 % (42-75); PLATELET COUNT 190 10^3/uL (130-400); RED CELL DISTRIBUTION WIDTH 16.5 % (10.0-14.5); WHITE BLOOD COUNT 11.8 10^3/uL (4.3-11.0)
[2019-04-28 13:38] LABS: BUN/CREATININE RATIO 13; CALCIUM 9.1 MG/DL (8.5-10.1); CARBON DIOXIDE 19 MMOL/L (21-32); CHLORIDE 109 MMOL/L (98-107); CREATININE SERUM 0.89 MG/DL (0.60-1.30); GFR ESTIMATED > 60; GLUCOSE 104 MG/DL (70-105); POTASSIUM 3.9 MMOL/L (3.6-5.0); SODIUM 137 MMOL/L (135-145)
[2019-05-05 13:29] LABS: BASOPHILS % (AUTO) 0 % (0-10); EOSINOPHILS % (AUTO) 0 % (0-10); HEMATOCRIT 41 % (40-54); LYMPHOCYTES # (AUTO) 0.4 X 10^3 (1.0-4.0); LYMPHOCYTES % (AUTO) 4 % (12-44); MEAN CORPUSCULAR HEMOGLOBIN 32 PG (25-34); MEAN CORPUSCULAR HGB CONC 34 G/DL (32-36); MEAN CORPUSCULAR VOLUME 95 FL (80-99); MEAN PLATELET VOLUME 11.1 FL (7.4-10.4); MONOCYTES % (AUTO) 0 % (0-12); NEUTROPHILS # (AUTO) 10.3 X 10^3 (1.8-7.8); NEUTROPHILS % (AUTO) 96 % (42-75); PLATELET COUNT 265 10^3/uL (130-400); WHITE BLOOD COUNT 10.8 10^3/uL (4.3-11.0)
[2019-05-05 13:58] LABS: ALANINE AMINOTRANSFERASE 24 U/L (0-55); ALBUMIN 4.3 GM/DL (3.2-4.5); ALKALINE PHOSPHATASE 78 U/L (40-136); BILIRUBIN,TOTAL 0.3 MG/DL (0.1-1.0); BUN/CREATININE RATIO 18; CALCIUM 9.7 MG/DL (8.5-10.1); CARBON DIOXIDE 17 MMOL/L (21-32); CHLORIDE 109 MMOL/L (98-107); GFR ESTIMATED > 60; GLUCOSE 152 MG/DL (70-105); POTASSIUM 4.3 MMOL/L (3.6-5.0); SODIUM 136 MMOL/L (135-145); TOTAL PROTEIN 7.3 GM/DL (6.4-8.2)
[2019-05-12 13:21] LABS: BASOPHILS % (AUTO) 0 % (0-10); EOSINOPHILS % (AUTO) 0 % (0-10); HEMATOCRIT 39 % (40-54); HEMOGLOBIN 13.1 G/DL (13.3-17.7); LYMPHOCYTES # (AUTO) 2.1 X 10^3 (1.0-4.0); LYMPHOCYTES % (AUTO) 21 % (12-44); MEAN CORPUSCULAR HEMOGLOBIN 32 PG (25-34); MEAN CORPUSCULAR HGB CONC 34 G/DL (32-36); MEAN CORPUSCULAR VOLUME 95 FL (80-99); MEAN PLATELET VOLUME 10.9 FL (7.4-10.4); MONOCYTES # (AUTO) 1.3 X 10^3 (0.0-1.0); MONOCYTES % (AUTO) 13 % (0-12); NEUTROPHILS # (AUTO) 6.9 X 10^3 (1.8-7.8); NEUTROPHILS % (AUTO) 67 % (42-75); PLATELET COUNT 325 10^3/uL (130-400); RED CELL DISTRIBUTION WIDTH 15.9 % (10.0-14.5); WHITE BLOOD COUNT 10.3 10^3/uL (4.3-11.0)
[2019-05-12 13:49] LABS: ALANINE AMINOTRANSFERASE 22 U/L (0-55); ALBUMIN 4.3 GM/DL (3.2-4.5); ALKALINE PHOSPHATASE 73 U/L (40-136); BILIRUBIN,TOTAL 0.2 MG/DL (0.1-1.0); BUN/CREATININE RATIO 24; CALCIUM 9.2 MG/DL (8.5-10.1); CARBON DIOXIDE 21 MMOL/L (21-32); CHLORIDE 107 MMOL/L (98-107); CREATININE SERUM 0.89 MG/DL (0.60-1.30); GFR ESTIMATED > 60; GLUCOSE 102 MG/DL (70-105); POTASSIUM 3.9 MMOL/L (3.6-5.0); SODIUM 136 MMOL/L (135-145); TOTAL PROTEIN 6.9 GM/DL (6.4-8.2)
[~2019-05-19] VITALS: Ht 170.2 cm; Wt 83.0 kg
[~2019-05-19 13:32] MED LIST changes: +BORTEZOMIB 3.5 MG VELCADE IV SCH
[2019-05-19 14:03] LABS: BASOPHILS % (AUTO) 0 % (0-10); EOSINOPHILS % (AUTO) 0 % (0-10); HEMATOCRIT 39 % (40-54); HEMOGLOBIN 13.3 G/DL (13.3-17.7); LYMPHOCYTES # (AUTO) 1.7 X 10^3 (1.0-4.0); LYMPHOCYTES % (AUTO) 13 % (12-44); MEAN CORPUSCULAR HEMOGLOBIN 32 PG (25-34); MEAN CORPUSCULAR HGB CONC 34 G/DL (32-36); MEAN CORPUSCULAR VOLUME 95 FL (80-99); MEAN PLATELET VOLUME 11.3 FL (7.4-10.4); MONOCYTES # (AUTO) 0.9 X 10^3 (0.0-1.0); MONOCYTES % (AUTO) 7 % (0-12); NEUTROPHILS # (AUTO) 10.4 X 10^3 (1.8-7.8); NEUTROPHILS % (AUTO) 80 % (42-75); PLATELET COUNT 272 10^3/uL (130-400); RED CELL DISTRIBUTION WIDTH 16.4 % (10.0-14.5)
[2019-05-19 14:21] LABS: BUN/CREATININE RATIO 16; CALCIUM 9.3 MG/DL (8.5-10.1); CARBON DIOXIDE 19 MMOL/L (21-32); CHLORIDE 105 MMOL/L (98-107); CREATININE SERUM 0.91 MG/DL (0.60-1.30); GFR ESTIMATED > 60; GLUCOSE 101 MG/DL (70-105); SODIUM 137 MMOL/L (135-145)
== END 2019-05-25 | disposition home or self-care (01) ==
LOC: ONC 13:32
PROVIDERS: ATTEND Internal Medicine Hematology & Oncology
DX: C90.00 Multiple myeloma not having achieved remission (principal); M54.5 Low back pain; M89.9 Disorder of bone, unspecified; F17.290 Nicotine dependence, other tobacco product, uncomplicated
CPT/HCPCS: 36415; 80048; 80053; 82232; 82784; 83615; 83735; 85025; 96401; 99213

== ENCOUNTER 2019-08-19 13:26 | Outpatient (RCR) | payer BC ==
[2019-05-26 13:51] LABS: BASOPHILS % (AUTO) 0 % (0-10); EOSINOPHILS % (AUTO) 0 % (0-10); HEMATOCRIT 41 % (40-54); HEMOGLOBIN 14.2 G/DL (13.3-17.7); LYMPHOCYTES # (AUTO) 1.8 X 10^3 (1.0-4.0); LYMPHOCYTES % (AUTO) 11 % (12-44); MEAN CORPUSCULAR HEMOGLOBIN 32 PG (25-34); MEAN CORPUSCULAR HGB CONC 34 G/DL (32-36); MEAN CORPUSCULAR VOLUME 94 FL (80-99); MEAN PLATELET VOLUME 11.6 FL (7.4-10.4); MONOCYTES # (AUTO) 1.8 X 10^3 (0.0-1.0); MONOCYTES % (AUTO) 11 % (0-12); NEUTROPHILS # (AUTO) 12.9 X 10^3 (1.8-7.8); NEUTROPHILS % (AUTO) 78 % (42-75); PLATELET COUNT 213 10^3/uL (130-400); WHITE BLOOD COUNT 16.5 10^3/uL (4.3-11.0)
[2019-05-26 14:03] LABS: BUN/CREATININE RATIO 18; CALCIUM 9.6 MG/DL (8.5-10.1); CARBON DIOXIDE 21 MMOL/L (21-32); CHLORIDE 105 MMOL/L (98-107); CREATININE SERUM 0.93 MG/DL (0.60-1.30); GFR ESTIMATED > 60; GLUCOSE 100 MG/DL (70-105); POTASSIUM 3.9 MMOL/L (3.6-5.0); SODIUM 137 MMOL/L (135-145)
[2019-06-02 13:57] LABS: BASOPHILS % (AUTO) 0 % (0-10); EOSINOPHILS % (AUTO) 0 % (0-10); HEMATOCRIT 41 % (40-54); HEMOGLOBIN 14.2 G/DL (13.3-17.7); LYMPHOCYTES # (AUTO) 1.8 X 10^3 (1.0-4.0); LYMPHOCYTES % (AUTO) 14 % (12-44); MEAN CORPUSCULAR HEMOGLOBIN 32 PG (25-34); MEAN CORPUSCULAR HGB CONC 35 G/DL (32-36); MEAN CORPUSCULAR VOLUME 93 FL (80-99); MEAN PLATELET VOLUME 11.3 FL (7.4-10.4); MONOCYTES # (AUTO) 1.6 X 10^3 (0.0-1.0); MONOCYTES % (AUTO) 13 % (0-12); NEUTROPHILS # (AUTO) 9.7 X 10^3 (1.8-7.8); NEUTROPHILS % (AUTO) 74 % (42-75); PLATELET COUNT 166 10^3/uL (130-400); WHITE BLOOD COUNT 13.2 10^3/uL (4.3-11.0)
[2019-06-02 14:13] LABS: BUN/CREATININE RATIO 13; CALCIUM 9.4 MG/DL (8.5-10.1); CARBON DIOXIDE 20 MMOL/L (21-32); CHLORIDE 106 MMOL/L (98-107); GFR ESTIMATED > 60; GLUCOSE 98 MG/DL (70-105); SODIUM 138 MMOL/L (135-145)
[2019-06-09 10:31] LABS: BASOPHILS % (AUTO) 0 % (0-10); EOSINOPHILS # (AUTO) 0.1 10^3/uL (0.0-0.3); EOSINOPHILS % (AUTO) 1 % (0-10); HEMATOCRIT 42 % (40-54); HEMOGLOBIN 14.3 G/DL (13.3-17.7); LYMPHOCYTES # (AUTO) 1.7 X 10^3 (1.0-4.0); LYMPHOCYTES % (AUTO) 15 % (12-44); MEAN CORPUSCULAR HEMOGLOBIN 32 PG (25-34); MEAN CORPUSCULAR HGB CONC 34 G/DL (32-36); MEAN CORPUSCULAR VOLUME 96 FL (80-99); MEAN PLATELET VOLUME 10.9 FL (7.4-10.4); MONOCYTES # (AUTO) 1.2 X 10^3 (0.0-1.0); MONOCYTES % (AUTO) 11 % (0-12); NEUTROPHILS % (AUTO) 73 % (42-75); PLATELET COUNT 280 10^3/uL (130-400); RED CELL DISTRIBUTION WIDTH 16.7 % (10.0-14.5)
[2019-06-09 10:53] LABS: ALANINE AMINOTRANSFERASE 29 U/L (0-55); ALBUMIN 4.5 GM/DL (3.2-4.5); ALKALINE PHOSPHATASE 71 U/L (40-136); BILIRUBIN,TOTAL 0.2 MG/DL (0.1-1.0); BUN/CREATININE RATIO 14; CALCIUM 9.2 MG/DL (8.5-10.1); CARBON DIOXIDE 20 MMOL/L (21-32); CHLORIDE 108 MMOL/L (98-107); CREATININE SERUM 0.87 MG/DL (0.60-1.30); GFR ESTIMATED > 60; GLUCOSE 102 MG/DL (70-105); POTASSIUM 4.1 MMOL/L (3.6-5.0); SODIUM 138 MMOL/L (135-145); TOTAL PROTEIN 7.2 GM/DL (6.4-8.2)
[2019-06-16 14:10] LABS: BASOPHILS % (AUTO) 0 % (0-10); EOSINOPHILS % (AUTO) 0 % (0-10); HEMATOCRIT 41 % (40-54); HEMOGLOBIN 13.9 G/DL (13.3-17.7); LYMPHOCYTES # (AUTO) 1.3 X 10^3 (1.0-4.0); LYMPHOCYTES % (AUTO) 12 % (12-44); MEAN CORPUSCULAR HEMOGLOBIN 33 PG (25-34); MEAN CORPUSCULAR HGB CONC 34 G/DL (32-36); MEAN CORPUSCULAR VOLUME 96 FL (80-99); MEAN PLATELET VOLUME 11.5 FL (7.4-10.4); MONOCYTES # (AUTO) 0.1 X 10^3 (0.0-1.0); MONOCYTES % (AUTO) 1 % (0-12); NEUTROPHILS # (AUTO) 9.4 X 10^3 (1.8-7.8); NEUTROPHILS % (AUTO) 86 % (42-75); PLATELET COUNT 268 10^3/uL (130-400); RED CELL DISTRIBUTION WIDTH 16.4 % (10.0-14.5); WHITE BLOOD COUNT 10.9 10^3/uL (4.3-11.0)
[2019-06-16 14:27] LABS: BUN/CREATININE RATIO 14; CALCIUM 9.4 MG/DL (8.5-10.1); CARBON DIOXIDE 20 MMOL/L (21-32); CHLORIDE 106 MMOL/L (98-107); CREATININE SERUM 0.94 MG/DL (0.60-1.30); GFR ESTIMATED > 60; GLUCOSE 119 MG/DL (70-105); POTASSIUM 4.3 MMOL/L (3.6-5.0); SODIUM 139 MMOL/L (135-145)
[2019-06-23 14:11] LABS: BASOPHILS % (AUTO) 0 % (0-10); EOSINOPHILS % (AUTO) 0 % (0-10); HEMATOCRIT 42 % (40-54); HEMOGLOBIN 14.2 G/DL (13.3-17.7); LYMPHOCYTES # (AUTO) 1.1 X 10^3 (1.0-4.0); LYMPHOCYTES % (AUTO) 7 % (12-44); MEAN CORPUSCULAR HEMOGLOBIN 32 PG (25-34); MEAN CORPUSCULAR HGB CONC 34 G/DL (32-36); MEAN CORPUSCULAR VOLUME 96 FL (80-99); MEAN PLATELET VOLUME 11.5 FL (7.4-10.4); MONOCYTES # (AUTO) 0.2 X 10^3 (0.0-1.0); MONOCYTES % (AUTO) 1 % (0-12); NEUTROPHILS # (AUTO) 13.5 X 10^3 (1.8-7.8); NEUTROPHILS % (AUTO) 92 % (42-75); PLATELET COUNT 257 10^3/uL (130-400); WHITE BLOOD COUNT 14.8 10^3/uL (4.3-11.0)
[2019-06-23 14:27] LABS: BUN/CREATININE RATIO 11; CALCIUM 9.4 MG/DL (8.5-10.1); CARBON DIOXIDE 19 MMOL/L (21-32); CHLORIDE 106 MMOL/L (98-107); CREATININE SERUM 1.07 MG/DL (0.60-1.30); GFR ESTIMATED > 60; GLUCOSE 129 MG/DL (70-105); POTASSIUM 4.5 MMOL/L (3.6-5.0); SODIUM 138 MMOL/L (135-145)
[2019-06-30 14:11] LABS: BASOPHILS % (AUTO) 0 % (0-10); EOSINOPHILS % (AUTO) 0 % (0-10); HEMATOCRIT 40 % (40-54); HEMOGLOBIN 13.5 G/DL (13.3-17.7); LYMPHOCYTES # (AUTO) 0.9 X 10^3 (1.0-4.0); LYMPHOCYTES % (AUTO) 9 % (12-44); MEAN CORPUSCULAR HEMOGLOBIN 32 PG (25-34); MEAN CORPUSCULAR HGB CONC 34 G/DL (32-36); MEAN CORPUSCULAR VOLUME 95 FL (80-99); MEAN PLATELET VOLUME 11.9 FL (7.4-10.4); MONOCYTES # (AUTO) 0.2 X 10^3 (0.0-1.0); MONOCYTES % (AUTO) 2 % (0-12); NEUTROPHILS # (AUTO) 8.5 X 10^3 (1.8-7.8); NEUTROPHILS % (AUTO) 89 % (42-75); PLATELET COUNT 184 10^3/uL (130-400); RED CELL DISTRIBUTION WIDTH 16.3 % (10.0-14.5); WHITE BLOOD COUNT 9.5 10^3/uL (4.3-11.0)
[2019-06-30 14:42] LABS: BUN/CREATININE RATIO 12; CALCIUM 9.4 MG/DL (8.5-10.1); CARBON DIOXIDE 21 MMOL/L (21-32); CHLORIDE 109 MMOL/L (98-107); CREATININE SERUM 0.97 MG/DL (0.60-1.30); GFR ESTIMATED > 60; GLUCOSE 112 MG/DL (70-105); POTASSIUM 4.1 MMOL/L (3.6-5.0); SODIUM 140 MMOL/L (135-145)
[2019-08-19 13:40] LABS: BASOPHILS % (AUTO) 0 % (0-10); EOSINOPHILS % (AUTO) 0 % (0-10); HEMATOCRIT 38 % (40-54); HEMOGLOBIN 12.7 G/DL (13.3-17.7); LYMPHOCYTES # (AUTO) 2.7 X 10^3 (1.0-4.0); LYMPHOCYTES % (AUTO) 37 % (12-44); MEAN CORPUSCULAR HEMOGLOBIN 32 PG (25-34); MEAN CORPUSCULAR HGB CONC 34 G/DL (32-36); MEAN CORPUSCULAR VOLUME 95 FL (80-99); MEAN PLATELET VOLUME 9.7 FL (7.4-10.4); MONOCYTES # (AUTO) 1.2 X 10^3 (0.0-1.0); MONOCYTES % (AUTO) 17 % (0-12); NEUTROPHILS # (AUTO) 3.3 X 10^3 (1.8-7.8); NEUTROPHILS % (AUTO) 46 % (42-75); PLATELET COUNT 300 10^3/uL (130-400); RED CELL DISTRIBUTION WIDTH 17.5 % (10.0-14.5); WHITE BLOOD COUNT 7.2 10^3/uL (4.3-11.0)
[2019-08-19 14:01] LABS: ALANINE AMINOTRANSFERASE 55 U/L (0-55); ALBUMIN 4.2 GM/DL (3.2-4.5); ALKALINE PHOSPHATASE 97 U/L (40-136); BILIRUBIN,TOTAL 0.2 MG/DL (0.1-1.0); BUN/CREATININE RATIO 15; CALCIUM 9.5 MG/DL (8.5-10.1); CARBON DIOXIDE 22 MMOL/L (21-32); CHLORIDE 107 MMOL/L (98-107); CREATININE SERUM 1.23 MG/DL (0.60-1.30); GFR ESTIMATED > 60; GLUCOSE 105 MG/DL (70-105); POTASSIUM 4.4 MMOL/L (3.6-5.0); SODIUM 141 MMOL/L (135-145); TOTAL PROTEIN 6.9 GM/DL (6.4-8.2)
== END 2019-08-24 | disposition home or self-care (01) ==
LOC: ONC 13:26
PROVIDERS: ATTEND Internal Medicine Hematology & Oncology
DX: C90.00 Multiple myeloma not having achieved remission (principal); M54.5 Low back pain; M89.9 Disorder of bone, unspecified; F17.290 Nicotine dependence, other tobacco product, uncomplicated
CPT/HCPCS: 36415; 80048; 80053; 82784; 83883; 85025; 96401; 99213

== ENCOUNTER 2019-11-30 11:00 | Outpatient (RCR) | payer BC ==
[2019-09-08 10:31] LABS: BASOPHILS % (AUTO) 0 % (0-10); EOSINOPHILS # (AUTO) 0.1 10^3/uL (0.0-0.3); EOSINOPHILS % (AUTO) 1 % (0-10); HEMATOCRIT 41 % (40-54); HEMOGLOBIN 14.1 G/DL (13.3-17.7); LYMPHOCYTES # (AUTO) 2.1 X 10^3 (1.0-4.0); LYMPHOCYTES % (AUTO) 23 % (12-44); MEAN CORPUSCULAR HEMOGLOBIN 33 PG (25-34); MEAN CORPUSCULAR HGB CONC 34 G/DL (32-36); MEAN CORPUSCULAR VOLUME 97 FL (80-99); MEAN PLATELET VOLUME 9.7 FL (7.4-10.4); MONOCYTES # (AUTO) 0.9 X 10^3 (0.0-1.0); MONOCYTES % (AUTO) 11 % (0-12); NEUTROPHILS # (AUTO) 5.8 X 10^3 (1.8-7.8); NEUTROPHILS % (AUTO) 65 % (42-75); PLATELET COUNT 276 10^3/uL (130-400); WHITE BLOOD COUNT 8.9 10^3/uL (4.3-11.0)
[2019-09-08 10:46] LABS: ALANINE AMINOTRANSFERASE 48 U/L (0-55); ALBUMIN 4.7 GM/DL (3.2-4.5); ALKALINE PHOSPHATASE 75 U/L (40-136); BILIRUBIN,TOTAL 0.4 MG/DL (0.1-1.0); BUN/CREATININE RATIO 13; CALCIUM 9.8 MG/DL (8.5-10.1); CARBON DIOXIDE 20 MMOL/L (21-32); CHLORIDE 107 MMOL/L (98-107); CREATININE SERUM 1.02 MG/DL (0.60-1.30); GFR ESTIMATED > 60; GLUCOSE 105 MG/DL (70-105); POTASSIUM 4.2 MMOL/L (3.6-5.0); SODIUM 137 MMOL/L (135-145); TOTAL PROTEIN 7.4 GM/DL (6.4-8.2)
[2019-10-06 13:32] LABS: BASOPHILS % (AUTO) 0 % (0-10); EOSINOPHILS % (AUTO) 0 % (0-10); HEMATOCRIT 42 % (40-54); HEMOGLOBIN 13.9 G/DL (13.3-17.7); LYMPHOCYTES # (AUTO) 2.8 X 10^3 (1.0-4.0); LYMPHOCYTES % (AUTO) 28 % (12-44); MEAN CORPUSCULAR HEMOGLOBIN 34 PG (25-34); MEAN CORPUSCULAR HGB CONC 33 G/DL (32-36); MEAN CORPUSCULAR VOLUME 101 FL (80-99); MEAN PLATELET VOLUME 9.6 FL (7.4-10.4); MONOCYTES # (AUTO) 0.8 X 10^3 (0.0-1.0); MONOCYTES % (AUTO) 8 % (0-12); NEUTROPHILS # (AUTO) 6.2 X 10^3 (1.8-7.8); NEUTROPHILS % (AUTO) 63 % (42-75); PLATELET COUNT 279 10^3/uL (130-400); RED CELL DISTRIBUTION WIDTH 18.2 % (10.0-14.5); WHITE BLOOD COUNT 9.9 10^3/uL (4.3-11.0)
[2019-10-06 13:55] LABS: ALANINE AMINOTRANSFERASE 40 U/L (0-55); ALBUMIN 4.6 GM/DL (3.2-4.5); ALKALINE PHOSPHATASE 82 U/L (40-136); BILIRUBIN,TOTAL 0.3 MG/DL (0.1-1.0); BUN/CREATININE RATIO 14; CALCIUM 9.5 MG/DL (8.5-10.1); CARBON DIOXIDE 23 MMOL/L (21-32); CHLORIDE 109 MMOL/L (98-107); CREATININE SERUM 0.97 MG/DL (0.60-1.30); GFR ESTIMATED > 60; GLUCOSE 100 MG/DL (70-105); POTASSIUM 4.5 MMOL/L (3.6-5.0); SODIUM 141 MMOL/L (135-145); TOTAL PROTEIN 7.1 GM/DL (6.4-8.2)
[2019-11-12 13:48] LABS: BASOPHILS % (AUTO) 0 % (0-10); EOSINOPHILS # (AUTO) 0.1 10^3/uL (0.0-0.3); EOSINOPHILS % (AUTO) 0 % (0-10); HEMATOCRIT 44 % (40-54); HEMOGLOBIN 15.1 G/DL (13.3-17.7); LYMPHOCYTES # (AUTO) 3.2 X 10^3 (1.0-4.0); LYMPHOCYTES % (AUTO) 21 % (12-44); MEAN CORPUSCULAR HEMOGLOBIN 35 PG (25-34); MEAN CORPUSCULAR HGB CONC 34 G/DL (32-36); MEAN CORPUSCULAR VOLUME 102 FL (80-99); MEAN PLATELET VOLUME 9.8 FL (7.4-10.4); MONOCYTES # (AUTO) 1.2 X 10^3 (0.0-1.0); MONOCYTES % (AUTO) 8 % (0-12); NEUTROPHILS # (AUTO) 10.7 X 10^3 (1.8-7.8); NEUTROPHILS % (AUTO) 70 % (42-75); PLATELET COUNT 281 10^3/uL (130-400); RED CELL DISTRIBUTION WIDTH 14.7 % (10.0-14.5); WHITE BLOOD COUNT 15.2 10^3/uL (4.3-11.0)
[2019-11-12 14:09] LABS: ALANINE AMINOTRANSFERASE 45 U/L (0-55); ALBUMIN 4.6 GM/DL (3.2-4.5); ALKALINE PHOSPHATASE 83 U/L (40-136); BILIRUBIN,TOTAL 0.2 MG/DL (0.1-1.0); BUN/CREATININE RATIO 18; CALCIUM 9.4 MG/DL (8.5-10.1); CARBON DIOXIDE 21 MMOL/L (21-32); CHLORIDE 107 MMOL/L (98-107); CREATININE SERUM 0.85 MG/DL (0.60-1.30); GFR ESTIMATED > 60; GLUCOSE 91 MG/DL (70-105); POTASSIUM 4.4 MMOL/L (3.6-5.0); SODIUM 138 MMOL/L (135-145); TOTAL PROTEIN 7.3 GM/DL (6.4-8.2)
[~2019-11-30 11:00] MED LIST changes: -BORTEZOMIB 3.5 MG VELCADE IV SCH; -OXYC-529 PO; +OXYC5TAB96 PO
== END 2019-12-07 | disposition home or self-care (01) ==
LOC: ONC 11:00
PROVIDERS: ATTEND Internal Medicine Hematology & Oncology
DX: C90.00 Multiple myeloma not having achieved remission (principal); M54.5 Low back pain; M89.9 Disorder of bone, unspecified; F17.290 Nicotine dependence, other tobacco product, uncomplicated
CPT/HCPCS: 36415; 80053; 85025; 99213

== ENCOUNTER → 2019-12-08 | Outpatient (CLI) | payer BC | LOC: RAD 07:55 | PROVIDERS: ATTEND Internal Medicine Hematology & Oncology | DX: C90.00 Multiple myeloma not having achieved remission (principal); N40.0 Benign prostatic hyperplasia without lower urinary tract symptoms; Z53.9 Procedure and treatment not carried out, unspecified reason ==

== ENCOUNTER 2019-12-25 07:57 | Outpatient (RCR) | payer BC ==
[~2019-12-25] VITALS: Ht 170.2 cm; Wt 83.2 kg
[~2019-12-25 07:57] MED LIST changes: +ACYC400T PO; +LENA10CA PO; +SULF1TAB35 PO
== END 2019-12-25 14:20 | disposition home or self-care (01) ==
LOC: PREOP 07:57
PROVIDERS: ATTEND Surgery
DX: Z01.812 Encounter for preprocedural laboratory examination (principal); Z11.59 Encounter for screening for other viral diseases
CPT/HCPCS: 87635

== ENCOUNTER 2019-12-30 15:23 | Outpatient (RCR) | payer BC ==
[2019-12-30 15:43] LABS: BASOPHILS # (AUTO) 0.1 10^3/uL (0.0-0.1); BASOPHILS % (AUTO) 0 % (0-10); EOSINOPHILS # (AUTO) 0.3 10^3/uL (0.0-0.3); EOSINOPHILS % (AUTO) 3 % (0-10); HEMATOCRIT 42 % (40-54); HEMOGLOBIN 14.5 G/DL (13.3-17.7); LYMPHOCYTES % (AUTO) 26 % (12-44); MEAN CORPUSCULAR HEMOGLOBIN 34 PG (25-34); MEAN CORPUSCULAR HGB CONC 34 G/DL (32-36); MEAN CORPUSCULAR VOLUME 98 FL (80-99); MEAN PLATELET VOLUME 9.8 FL (7.4-10.4); MONOCYTES # (AUTO) 1.2 X 10^3 (0.0-1.0); MONOCYTES % (AUTO) 10 % (0-12); NEUTROPHILS # (AUTO) 6.8 X 10^3 (1.8-7.8); NEUTROPHILS % (AUTO) 60 % (42-75); PLATELET COUNT 338 10^3/uL (130-400); WHITE BLOOD COUNT 11.3 10^3/uL (4.3-11.0)
[2019-12-30 16:03] LABS: ALANINE AMINOTRANSFERASE 39 U/L (0-55); ALBUMIN 4.3 GM/DL (3.2-4.5); ALKALINE PHOSPHATASE 89 U/L (40-136); BILIRUBIN,TOTAL 0.2 MG/DL (0.1-1.0); BUN/CREATININE RATIO 14; CALCIUM 9.1 MG/DL (8.5-10.1); CARBON DIOXIDE 21 MMOL/L (21-32); CHLORIDE 110 MMOL/L (98-107); CREATININE SERUM 1.09 MG/DL (0.60-1.30); GFR ESTIMATED > 60; GLUCOSE 100 MG/DL (70-105); MAGNESIUM 2.3 MG/DL (1.6-2.4); POTASSIUM 4.2 MMOL/L (3.6-5.0); SODIUM 140 MMOL/L (135-145); TOTAL PROTEIN 7.1 GM/DL (6.4-8.2)
[2020-01-01 10:32] LABS: IMMUNOFIX PATH REPORT NUMBER Complete (Complete)
== END 2020-01-27 14:11 | disposition home or self-care (01) ==
LOC: ONC 15:23
PROVIDERS: ATTEND Internal Medicine Hematology & Oncology
DX: C90.00 Multiple myeloma not having achieved remission (principal); M54.5 Low back pain; M89.9 Disorder of bone, unspecified; N40.0 Benign prostatic hyperplasia without lower urinary tract symptoms; F17.290 Nicotine dependence, other tobacco product, uncomplicated
CPT/HCPCS: 78815; 80053; 83020; 83735; 83883; 85025; 86334; A9552; G0463; 99213

== ENCOUNTER 2020-02-13 10:17 | Emergency (ER) | payer BC ==
[~2020-02-13] VITALS: Ht 170 cm; Wt 84.0 kg
--- OUTSIDE RECORDS SUMMARY | 2020-02-13 10:24 | XMS REPORT | Encounter Summary ---
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 Name Role Phone Lucas Carcamo MD PCP Cindy Carlisle MD [phone] Reason for Referral * Radiology Services (Routine) Referred By Contact Referred To Contact Status Reason Specialty Diagnoses / Procedures Rigo Allen MD [address] [place] [address] New Request Radiology Diagnoses H/O autologous stem cell transplant (HCC) P rocedures NM PET SCAN WHOLEBODY (HEAD-TOES) * Consult, Test & Treat (Routine) Referred By Contact Referred To Contact Status Reason Specialty Diagnoses / Procedures Rigo Allen MD [address] [place] [address] Edwardo Almazan MD [address] [place] [address] New Request Specialty Services Diagnoses Required H/O autologous stem cell transplant (HCC) Reason for Visit * Reason Comments BMT Follow-up Fatigue Pain mid-lower back and teeth Encounter Details Care Team Description Date Type Department Hunter Root DO [address] [place] [address] Rigo Allen MD [address] [place] [address] [phone] H/O autologous stem cell transplant (HCC ) (Primary Dx); Multiple myeloma not having achieved remission (HCC); Multiple myeloma in remission (HCC); History of auto stem cell transplant (HCC) 11/27/2019 Office Visit [facility] [address] [facility] [address] [place] [address] [address] [place] [address] Social History Date Tobacco Use Types Packs/Day Years Used Quit: 07/03/2019 Former Smoker Pipe 36 Smokeless Tobacco: Never Used Comments: pt reports 07/08 that he has q uit smoking Drinks/Week oz/Week Comments Alcohol Use None for one year, p reviously 1x/week, 0.5-1 pint each occasion Not Currently Education Answer Date Recorded What is the highest level of school you have Some college, no degree 07/07/2019 completed or the highest degree you hav e received? Sex Assigned at Date Recorded Not on file Industry Job Start Date Occupation Not on file Not on file Not on file Travel End Travel History Travel Start No recent travel history available. Date Recorded COVID-19 Exposure Response 11/27/2019 10:04 AM CDT In the last month, have you been in contact with No / Unsure someone who was confirmed or suspected to have Coronavirus / COVID-19? 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 Index documented in this encounter Functional Status Date of Assessment Functional Status Response 08/04/2019 Does the patient have a hearing impairment: No 08/04/2019 Does the patient have a visual impairment: No 08/04/2019 Does the patient have impaired ambulation: No 08/04/2019 Does the patient have an activity of daily living No (ADL) impairment: 08/04/2019 Does the patient have an instrumental activity of No daily living (IADL) impairment: Date of Assessment Cognitive Status Response 08/04/2019 Does the patient have a cognitive impairment: No documented as of this encounter Progress Notes * Julienne Holder RN - 11/27/2019 10:10 AM CDT Date of Transplant: 07/24/19 D+ 126 Transplant Type: Autologous Conditioning Regimen: Melphalan 200 Conditioning Regimen Type: Myeloablative Rationale for reduced/NST regimen: n/a Stem Cell Source: PSC Graft Manipulation: Not Applicable Diagnosis/Stage: MM, IgA Lambda Disease Status at Transplant: Partial Response Cytogenetic/Fish AT DIAGNOSIS: Cytogenetics: Cancelled, not indicated per pathol ogy review. FISH: Negative for t(4;14)(p16.3;q32)FGFR3/IGH fusion. Negative for deletion/ane uploidy of the TP53(17p13.1),D17Z1(17cep),CKS1B(1q21.3), and CDKN2C(1p32.3) pura ons. Negative for t(14;16)(q32;q23)IGH/MAF fusion. Positive for an additional copy of the IGH(14q32) region. CMV Status:- Positive Blood Type - A Positive Cell Source: Peripheral, autologous, cryopreserved Consents / Study# / Protocol#: 8322, blood/chemo, storage, autologous, apheresis Pretransplant Coordinator: Kelly Laurent, Electrolyte replacement goal:high Transfusion parameters:standard PJP Prophylaxis: Bactrim Central Line: LTFU orders placed for day Immunizations due: n/a Primary Oncologist: Dr. Cindy Carlisle [phone] 11/26- This RN was not present in the MD visit. Pt here for his [address] Allen reviewed result with patient. Pt reports frustration with his care fro m Dr. Carlisle. He would like to transfer care to Dr. Edwardo Almazan. Referral placed a nd sent along with Dr. Allen's most recent note. Refills sent to [facility]. Orders placed for 180 day work up. This RN spoke to MRAIYA Leach at [facility]. She stated that Dr. Almazan was not able to see the patient. She did state that there was a new physician coming on in December and the patient expressed interest in seeing him. She stated that the pa lotus was willing to see Dr. Carlisle until this new physician comes on. RTC per LTFU * Rigo Allen MD - 11/27/2019 10:10 AM CDT Name: Varinder Mendes : 1965 AGE: 54 y.o. DATE OF SERVICE: 11/27/2019 Reason for Visit: Day +126/Auto SCT/Dee 200/MM No chief complaint on file. Subjective: Here for day 100 post Auto SCT. Reports feeling stressed Had 2 laila th pulled out and says he did not get antibiotics prophylactically. Denies F/ C/NS or rash. Mild HAYDEN. Unaccompanied. Transplant History: Date of Transplant: 07/24/19 Transplant Type: Autologous Conditioning Regimen: Melphalan 200 Conditioning Regimen Type: Myeloablative Rationale for reduced/NST regimen: n/a Stem Cell Source: PSC Graft Manipulation: Not Applicable Diagnosis/Stage: MM, IgA Lambda Disease Status at Transplant: Partial Response Cytogenetic/Fish AT DIAGNOSIS: Cytogenetics: Cancelled, not indicated per pathol ogy review. FISH: Negative for t(4;14)(p16.3;q32)FGFR3/IGH fusion. Negative for deletion/ane uploidy of the TP53(17p13.1),D17Z1(17cep),CKS1B(1q21.3), and CDKN2C(1p32.3) pura ons. Negative for t(14;16)(q32;q23)IGH/MAF fusion. Positive for an additional copy of the IGH(14q32) region. CMV Status:- Positive Blood Type - A Positive Cell Source: Peripheral, autologous, cryopreserved Consents / Study# / Protocol#: 8322, blood/chemo, storage, autologous, apheresis Pretransplant Coordinator: Kelly Laurent RN History of Present Illness Varinder Mendes is a 54 y.o. male with recently dx IgA Lambda MM October 2018 . Presented to ED with back pain, MRI revealed L4 vertebral body mass. Lab work showed elevated free lambda light chains. BMBx confirmed 10% plasma cells. Now s /p radiation to L4 vertebral mass (12/15-01/20/19) and 4 cycles of RVD start . Started stem cell mobilzation 07/17. Auto SCT with HD Melphalan 07/23. Cancer Staging No matching staging information was found for the patient. APPOINTMENT: 03/19/19 Dr. Root REFERRING PHYSICIAN: Dr. Cindy Carlisle [phone] INSURANCE: [employer] [place] Allergies: NKDA Family Hx: Not on file. Medical Hx: Enlarged prostate. Surgical Hx: Cataract surgery. Social Hx: Rare alcohol use. Current tobacco use, pipe. History of tobacco use for 36 years. No illicit drug use. Mr. Mendes presented in October 2018 to urgent care with complaint of chronic back pain which had been present for over four years. Imaging revealed an expansile m arrow replacing lesion involving the L4 vertebral body. This was biopsied and co nsistent with plasma cell neoplasm. Serum protein electrophoresis demonstrated a paraprotein of 1.2 g/dL, IgA lambda by immunofixation. His free lambda light ch ains were elevated at 478.98 mg/L. Skeletal survey and PET scan did not reveal a ny other lytic lesions. A bone marrow biopsy showed 10% plasma cells in a hypoce llular marrow (20-25%). Conventional cytogenetics were not performed and FISH s tudies were positive only for an extra copy of the IGH(14q32) region. He receive d radiation treatment to the L4 lesion and then started RVD on 03/10/19. He was r eferred today to discuss the role of autologous stem cell transplant. Timeline of Events: 11/17/18 MRI [facility] Thoracic Spine w/o contrast: Mild thoracic spondylosis. Addendum: There is a marrow signal intensity abnormality in the T1 vertebral bod y. This was originally thought to reflect hemangioma. However, in light of the l esion at the L4 vertebral body this too is suspicious for metastatic disease. Lumbar Spine w/o contrast: There is an expansile marrow replacing lesion involvi ng the L4 vertebral body which extends into the right pedicle as well as demonst rates some extraosseous tissue expansion into the spinal canal and anterior epid ural space. This does narrow the central canal as well as right lateral recess a nd right neural foramen. This is concerning for a neoplastic process such as met astatic disease or myeloma. 11/26/18 FNA Bone, L4 mass, fine needle aspiration: Abundant plasma cells. 11/26/18 BIOPSY [facility] Bone, L4, core biopsy: Plasma cell neoplasm. Comment: Sections show sheets of plasma cells with lambda light chain restrictio n. Flow Cytometry: Aberrant monoclonal plasma cell population (83%) consistent with a plasma cell neoplasm (with lambda light chain restriction and aberrant loss of CD19). No evidence of a B or T cell lymphoproliferative disorder. 12/04/18 LAB WBC: 9.6 RBC: 4.44 HGB: 14.3 HCT: 42 PLT: 279 ANC: 6.1 BUN: 17 Creat: 0.85 Ca: 9.5 TBili: 0. TP: 7.4 Alb: 4 SPEP TP: 6.9 ALB: 3.6 Alpha1: 0.6 Alpha2: 0.8 Beta: 0.4 Gamma: 1.5 Paraprotein: 1.2 g/dL Paraprotein shown by immunofixation to be of IgA lambda specificity. FK.34 mg/L FL.98 mg/L Ratio: 0.02 12/04/18 Skeletal Survey Unremarkable skeletal survey. No osteolytic lesions are s een. 12/30/18 PET/CT [facility] Skull Base to Midthigh: Solitary site of hypermetabolism i nvolving the expansile lytic lesion of L4 (max SUV 4.7). No other significant ab normality is detected. 01/02/19 LAB WBC: 12.1 HGB: 14.2 HCT: 41 PLT: 216 ANC: 8.8 01/02/19 BMBX [facility] Bone marrow, aspiration, clot, and biopsy: Plasma cell myeloma. Peripheral smear: New onset of mild neutrophilia, favor reactive. Comment: The marrow is mildly hypocellular for age (20-25%) with active trilinea ge hematopoiesis but contains approximately 10% atypical plasma cells which are occasionally binucleate or exhibit incompletely divided dumbbell shaped nuclei. Immunohistochemistry shows numerous CD138 positive cells comprising approximatel y 10-15% of the marrow elements in the biopsy core which are nearly entirely pos itive for lambda light chains by in situ hybridization. Flow Cytometry: Small aberrant monoclonal plasma cell population (3%), consisten t with a plasma cell neoplasm (positive for CD138, CD38, with dim lambda light c davidson restriction and aberrant expression of CD56 and loss of CD19). CD20 and CD19 positive B cells comprise ~3% of events and have polytypic light c davidson expression with a normal kappa to lambda ratio. Cytogenetics: Cancelled, not indicated per pathology review. FISH: Negative for t(4;14)(p16.3;q32)FGFR3/IGH fusion. Negative for deletion/ane uploidy of the TP53(17p13.1),D17Z1(17cep),CKS1B(1q21.3), and CDKN2C(1p32.3) pura ons. Negative for t(14;16)(q32;q23)IGH/MAF fusion. Positive for an additional copy of the IGH(14q32) region. 12/15/18- 01/20/19 RADIATION [facility] L4 Spine Lesion 5,000 cGy over 25 fractions. 02/18/19 MRI [facility] Lumbar Spine w/o contrast: 1. The expansile mass involving the vertebral body and right pedicle of L4 seen previously has diminished in size. There is less mass effect upon the thecal sac in this area but there is still narrowing of the neuroforamen on the right. 2. The overall appearance of the lumbar spine is otherwise unchanged. No new abn ormality has developed. 03/10/19 LAB WBC: 10.8 RBC: 4.53 HGB: 14.4 HCT: 43 PLT: 267 ANC: 8 BUN: 12 Creat: 0.85 Ca: 9.9 TBili: 0.4 TP: 8.2 Alb: 4.4 LDH: 166 (125-220) B2M: 1.4 03/10/19 CHEMO C1D1 RVD Review of Systems Constitutional: Positive for fatigue. Negative for activity change (decrease d/t back/leg pain), appetite change (improved), chills, diaphoresis, fever and unex pected weight change. HENT: Negative for congestion, dental problem, mouth sores, postnasal drip, sinu s pressure, sore throat and trouble swallowing. Eyes: Negative. Negative for pain and visual disturbance. Respiratory: Negative for cough, shortness of breath and wheezing. Cardiovascular: Negative for chest pain, palpitations and leg swelling. Gastrointestinal: Negative for abdominal distention, abdominal pain, anal bleedi ng, blood in stool, constipation, diarrhea, nausea and vomiting. Endocrine: Negative. Negative for polyuria. Genitourinary: Negative. Negative for difficulty urinating, dysuria, frequency and hematuria. Musculoskeletal: Positive for back pain. Negative for arthralgias, gait problem, joint swelling and myalgias. Skin: Negative. Negative for rash. Allergic/Immunologic: Positive for immunocompromised state. Neurological: Negative for weakness, light-headedness and headaches. Hematological: Negative. Negative for adenopathy. Does not bruise/bleed easily. Psychiatric/Behavioral: Positive for sleep disturbance (frequent bathroom trips) . Negative for confusion and dysphoric mood. The patient is not nervous/anxious. All other systems reviewed and are negative. Objective: acyclovir (ZOVIRAX) 800 mg tablet Take 1 tablet by mouth twice a day startin g on Day -1. DIPH/LIDO/ANTACID 1:1:1 (COMPOUND) Swish and Swallow 10 mL by mouth as direc sebastian four times daily as needed for mouth pain. loperamide (IMODIUM A-D) 2 mg capsule Take 2 capsules by mouth initially, fo llowed by 1 capsule by mouth after each loose stool up to a maximum of 8 tablets in 24 hours. ondansetron (ZOFRAN) 4 mg tablet Take one tablet by mouth every 6 hours as n eeded for Nausea or Vomiting. oxyCODONE (ROXICODONE) 5 mg tablet Take one tablet by mouth every 6 hours as needed for Pain pantoprazole DR (PROTONIX) 40 mg tablet Take one tablet by mouth daily. prochlorperazine maleate (COMPAZINE) 10 mg tablet Take one tablet by mouth e very 6 hours as needed for Nausea or Vomiting. Use as first option for breakthro ugh nausea trimethoprim/sulfamethoxazole (BACTRIM DS) 160/800 mg tablet Take one tablet by mouth twice daily twice weekly. Clinic will instruct when to start. There were no vitals filed for this visit. There is no height or weight on file to calculate BMI. Pain Addressed: Current regimen working to control pain. Patient Evaluated for a Clinical Trial: Patient currently in screening for a elmer atment clinical trial. Eastern Cooperative Oncology Group performance status is 1, Restricted in physic ally strenuous activity but ambulatory and able to carry out work of a light or sedentary nature, e.g., light house work, office work Karnofsky Scale: 70% Cares for self; unable to do normal activity, or active wor k Physical Exam General: Alert, cooperative Head: Normocephalic, without obvious abnormality, atraumatic Eyes: Conjunctivae/corneas clear. PERRL, EOMs intact. Throat: Poor dentition. Mild redness at base front teeth that have been extract ed Neck: Supple, symmetrical, trachea midline, no adenopathy, thyroid: no enlargem ent/tenderness/nodules, no carotid bruit and no JVD Lungs: Clear to auscultation bilaterally Heart: Regular rate and rhythm, S1, S2 normal, no murmur, click rub or gallop Abdomen: Soft, non-tender. Bowel sounds normal. No masses. No organomegaly. Extremities: Extremities normal, atraumatic, no cyanosis. No edema Skin: Skin color, texture, turgor normal. No rashes or lesions Lymph nodes: Cervical, supraclavicular and axillary nodes normal Neurologic: CNII - XII intact. Normal strength, sensation throughout. Musculoskeletal: Normal / Negative Psych: Anxious.Upset re his recent dental extraction and antibiotics. Comprehensive Metabolic Profile CMP Latest Ref Rng & Units 11/10/2019 08/11/2019 08/06/2019 08/05/2019 08/04/2019 NA 137 - 147 MMOL/L 137 136(L) 138 140 140 K 3.5 - 5.1 MMOL/L 4.2 4.6 3.7 3.3(L) 3.0(L) CL 98 - 110 MMOL/L 105 103 104 104 105 CO2 21 - 30 MMOL/L 25 27 25 28 25 GAP 3 - 12 7 6 9 8 10 BUN 7 - 25 MG/DL 16 11 5(L) 5(L) 7 CR 0.4 - 1.24 MG/DL 0.97 0.83 0.70 0.73 0.88 GLUX 70 - 100 MG/DL 98 99 95 96 103(H) CA 8.5 - 10.6 MG/DL 9.4 9.5 8.6 8.4(L) 8.2(L) TP 6.0 - 8.0 G/DL 7.0 6.9 5.9(L) 5.7(L) 5.3(L) ALB 3.5 - 5.0 G/DL 4.5 4.2 3.6 3.4(L) 3.1(L) ALKP 25 - 110 U/L 75 97 83 72 62 ALT 7 - 56 U/L 33 94(H) 26 18 12 TBILI 0.3 - 1.2 MG/DL 0.3 0.3 0.3 0.4 0.5 GFR >60 mL/min >60 >60 >60 >60 >60 GFRAA >60 mL/min >60 >60 >60 >60 >60 CBC w diff CBC with Diff Latest Ref Rng & Units 11/10/2019 08/11/2019 08/06/2019 08/05/2019 08/04/2019 WBC 4.5 - 11.0 K/UL 9.1 6.3 10.3 8.2 1.7(L) RBC 4.4 - 5.5 M/UL 4.11(L) 3.89(L) 3.25(L) 3.12(L) 2.90(L) HGB 13.5 - 16.5 GM/DL 14.6 12.6(L) 10.6(L) 10.2(L) 9.4(L) HCT 40 - 50 % 42.5 37.4(L) 30.8(L) 29.7(L) 27.5(L) MCV 80 - 100 FL 103.4(H) 96.2 94.7 95.4 94.8 MCH 26 - 34 PG 35.5(H) 32.3 32.6 32.6 32.5 MCHC 32.0 - 36.0 G/DL 34.3 33.6 34.4 34.2 34.3 RDW 11 - 15 % 15.6(H) 16.5(H) 16.0(H) 15.7(H) 15.2(H) PLT 150 - 400 K/UL 280 214 47(L) 10(LL) 8(LL) MPV 7 - 11 FL 7.9 8.2 8.8 8.9 9.4 NEUT 41 - 77 % 63 - - 68 - ANC 1.8 - 7.0 K/UL 5.80 - - 5.50 - LYMA 24 - 44 % 27 - - 11(L) - ALYM 1.0 - 4.8 K/UL 2.50 - - 0.90(L) - DAVID 4 - 12 % 8 - - 21(H) - AMONO 0 - 0.80 K/UL 0.70 - - 1.80(H) - EOSA 0 - 5 % 1 - - 0 - AEOS 0 - 0.45 K/UL 0.10 - - 0.00 - BASA 0 - 2 % 1 - - 0 - ABAS 0 - 0.20 K/UL 0.10 - - 0.00 - Documentation 11/24/2019 [facility] [place] Jessica BMT Follow-up Reason for Visit Progress Notes Jessica Ortega 11/24/19 1156 Signed Note Details Assessment and Plan Date of Transplant:07/24/19 Transplant Type:Autologous Conditioning Regimen:Melphalan 200 Conditioning Regimen Type:Myeloablative Rationale for reduced/NST regimen:n/a Stem Cell Source:PSC Graft Manipulation:Not Applicable Diagnosis/Stage:MM, IgA Lambda Disease Status at Transplant:Partial Response Cytogenetic/Fish AT DIAGNOSIS:Cytogenetics: Cancelled, not indicated per patho logy review. FISH: Negative for t(4;14)(p16.3;q32)FGFR3/IGH fusion. Negative for deletion/ane uploidy of the TP53(17p13.1),D17Z1(17cep),CKS1B(1q21.3), and CDKN2C(1p32.3) pura ons. Negative for t(14;16)(q32;q23)IGH/MAF fusion. Positive for an additional copy of the IGH(14q32) region. CMV Status:-Positive Blood Type -A Positive Cell Source: Peripheral, autologous, cryopreserved Consents / Study# / Protocol#:8322, blood/chemo, storage, autologous, apheresi s Pretransplant Coordinator:Kelly Laurent RN Primary Diagnosis: IgA and Lambda. - S/P RVD x 4 cycles, achieved OR. - Wme104 and AutoSCT followed by Revlimid maintenance. - Disease assessment at Day 100 shows CR. Will recommend PET scan for restaging as he is still having mid back pain. -Recommend to start Revlimid 10 mg daily maintenance. -Patient wants to f/u with Dr. Hampton +126/Auto SCT/Dee 200 mg/m2 Heme: - Counts recovered. Transfusion independent. -Transfuse for Hgb<7 and plts<10. -start aspirin prophylaxis with Revlimid FEN/Renal: Replace electrolytes per BMT high goal protocol(Has RBBB). -Renal function wnl. -Edema resolved - Oral intake improving GI: -no NVD - LFTs stable Cardiovascular: EKG 07/07/19 showing BBB.Unremarkable echo Infectious Disease: Afebrile. No active infections. - S/P hospitalization for neutropenic fever and failure to thrive during the BMT . -Ppx: acyclovir. And Bactrim for 6 months - 08/06: Trifusion removed in IR. -received po antibiotics for tooth extraction. Pulmonary: Hx of LT pipe smoker X 36 yrs.07/08/19 quit smoking. Pain: Hx of chronic back pain that radiates down his legs R>L.Controlled with Oxycodone 5 mg prn. Continues to have mid back pain - advised f/u imaging Psychology: lay out worker noted concerns during initial assessment. - See nursing notes from 07/29 regarding patient speaking about his . Talked to outside room 07/30 and she reported she feels safe and is used to the way he talks to her. - Social work and case management following, consult onc-psych. RTC: f/u with Hem Onc in [place]. Return to BMT for Day 180 LTFU. Encouraged patient to have a local PCP. Rigo Allen MD documented in this encounter Miscellaneous Notes * Addendum Note - Kelly Garcia RN - 11/27/2019 10:10 AM CDT Addended by: KELLY GARCIA on: 01/27/2020 11:43 AM Modules accepted: Orders, SmartSet documented in this encounter Plan of Treatment Order Schedule Name Type Priority Associated Diag noses Expected: 01/20/2020 (Approximate), Expi res: 11/26/2020 CBC AND DIFF Lab Routine H/O autologous stem cell transplant ([facility]) Expected: 01/20/2020 (Approximate), Expi res: 11/26/2020 COMPREHENSIVE METABOLIC Lab Routine H/O au tologous stem cell PANEL transplant ([facility]) Expected: 01/20/2020 (Approximate), Expi res: 11/26/2020 MAGNESIUM Lab Routine H/O autologous stem cell transplant ([facility]) Expected: 01/20/2020 (Approximate), Expi res: 11/26/2020 KAPPA/LAMBDA FREE LIGHT Lab Routine H/O au tologous stem cell CHAINS transplant ([facility]) Expected: 01/20/2020 (Approximate), Expi res: 11/26/2020 IMMUNOFIXATION, SERUM Lab Routine H/O auto logous stem cell (IFES) transplant ([facility]) Expected: 01/20/2020 (Approximate), Expi res: 11/26/2020 ELECTROPHORESIS-SERUM Lab Routine H/O auto logous stem cell PROTEIN transplant ([facility]) Expected: 01/20/2020 (Approximate), Expi res: 11/26/2020 NM PET SCAN WHOLEBODY Imaging Routine H/O auto logous stem cell (HEAD-TOES) transplant ([facility]) Order Schedule Name Type Priority Associated Diag noses Ordered: 11/27/2019 AMB REFERRAL TO Outpatient Routine H/O autologous stem cell HEMATOLOGY ONCOLOGY Referral transplant ([facility]) documented as of this encounter Goals Goal Patient Associated Recent Progress Patient-Stat Aut hor Goal Type Problems ed? GOAL General No Natasha Almazan, RN Note: Rest and recover documented as of this encounter Visit Diagnoses Diagnosis Multiple myeloma not having achieved re mission (HCC) Multiple myeloma, without mention of little ving achieved remission H/O autologous stem cell transplant ([facility]) Peripheral stem cells replaced by trans plant Multiple myeloma in remission (HCC) Multiple myeloma in remission History of auto stem cell transplant (H [facility]) Peripheral stem cells replaced by trans plant documented in this encounter
--- OUTSIDE RECORDS SUMMARY | 2020-02-13 10:24 | XMS REPORT | Encounter Summary ---
Author Author [facility] Organization [facility] Address Unknown Phone Unavailable Care Team Providers Care Vice President Of Consulting Services Name Role Phone Lucas Carcamo MD PCP Cindy Carlisle MD [phone] Reason for Visit * Reason Comments Pre-Visit Planning Encounter Details Care Team Description Date Type Department Rigo Allen MD [address] [place] [address] Pre-Visit Planning 11/26/2019 Telephone [facility] [address] [phone] Social History Date Tobacco Use Types Packs/Day [...] / COVID-19? documented as of this encounter Functional Status Date of Assessment [...] impairment: No documented as of this encounter Miscellaneous Notes * Telephone Encounter - Amaya Dotson RN - 11/26/2019 12:21 PM CDT "Sandor, my name is Amaya and I'm calling on behalf of the [employer] [facility]. I am completing a screening call prior to your scheduled appointm ent tomorrow. Please plan to keep your appointment as scheduled, unless you hea r otherwise from your medical team. You may reach me at [phone] to complet e screening. Thank you." Amaya Dotson RN Clinical Nurse Coordinator Neurosurgery documented in this encounter Plan of Treatment Not on filedocumented as of this encounter Goals Goal Patient Associated Recent Progress Patient-Stat Aut hor Goal Type Problems ed? GOAL General No Natasha Almazan, MARIYA Note: Rest and recover documented as of this encounter Visit Diagnoses Not on filedocumented in this encounter
--- OUTSIDE RECORDS SUMMARY | 2020-02-13 10:24 | XMS REPORT | Encounter Summary ---
Author Author [facility] Organization [facility] Address Unknown Phone Unavailable Care Team Providers Care Nba Player Name Role Phone Lucas Carcamo MD PCP Cindy Carlisle MD [phone] Encounter Details Care Team Description Date Type Department 11/27/2019 Travel Social History Date Tobacco Use Types Packs/Day [...] impairment: No documented as of this encounter Plan of Treatment Not on filedocumented as of this encounter Goals Goal Patient Associated Recent Progress Patient-Stat Aut hor Goal Type Problems ed? GOAL General No Natasha Almazan RN Note: Rest and recover documented as of this encounter Visit Diagnoses Not on filedocumented in this encounter
--- OUTSIDE RECORDS SUMMARY | 2020-02-13 10:24 | XMS REPORT | Encounter Summary ---
Author Author [facility] Organization [facility] Address Unknown Phone Unavailable Care Team Providers Care Business Risk Analyst Name Role Phone Lucas Carcamo MD PCP Cindy Carlisle MD [phone] Reason for Visit * Reason Comments Treatment Encounter Details Care Team Description Date Type Department Greg Branham M.S.M., MD [address] [place], [place] [id number] 02/03/2020 [facility] [address] [facility] [address] [place] [address] Social History Date Tobacco Use Types Packs/Day [...] history available. Date Recorded COVID-19 Exposure Response 02/03/2020 11:08 AM CDT In the last month, have [...] impairment: No documented as of this encounter Medications at Time of Discharge Start Date End Date Medication Sig Dispensed Refills 02/03/2020 aspirin 325 mg tablet Take one 90 tablet 0 tablet by mouth daily. Take with food. 08/06/2019 oxyCODONE (ROXICODONE) 5 Take one 60 tablet 0 mg tablet tablet by mouth every 6 hours as needed for Pain 08/04/[address] Take one 90 tablet 1 (PROTONIX) 40 mg tablet tablet by mouth daily. documented as of this encounter Plan of Treatment Not on filedocumented as of this encounter Goals Goal Patient Associated Recent Progress Patient-Stat Aut hor Goal Type Problems ed? GOAL General No Natasha Almazan RN Note: Rest and recover documented as of this encounter Visit Diagnoses Diagnosis H/O autologous stem cell transplant (HC C) Peripheral stem cells replaced by trans plant Multiple myeloma in remission (HCC) Multiple myeloma in remission documented in this encounter Administered Medications Action Date Dose Rate Site Medication Order MAR Action 02/03/2020 12:31 PM CDT 0.5 mL Deltoid, Left Diphth/Tet/Pertus/HIB/Polio (PENTACEL) Given DTaP-IPV component (vial 1 of 2) (PF) 0.5 mL 0.5 mL, Intramuscular, ONCE - UNTIL ADMIN, 1 dose, Sat02/03/20 at 1211, Pentacel is supplied in two vials that must be combined prior to administration: 1) Withdraw 0.5 mL of DTap-IPV Component. 2) Inject DTap-IPV Component into Haemophilus B Conjugate (ACTHIB) component vial. 3) Agitate via l to ensure reconstitution. Reconstitute d solution should appear clear/colorless. 4) Withdraw 0.5 mL of reconstituted solution into a syringe and administer as a single IM injection. 5) If Pentace l is NOT administered after reconstitution, may be stored refrigerated for 24 hours., [facility] 02/03/2020 12:31 PM CDT 1 each Deltoid, Left Diphth/Tet/Pertus/HIB/Polio (PENTACEL) Given HIB component (vial 2 of 2) (PF) 1 each 1 each, Intramuscular, ONCE - UNTIL ADMIN, 1 dose, 02/03/20 at 1211, Pentacel is supplied in two vials that must be combined prior to administration: 1) Withdraw 0.5 mL of DTap-IPV Component. 2) Inject DTap-IPV Component into Haemophilus B Conjugate (ACTHIB) component vial. 3) Agitate via l to ensure reconstitution. Reconstitute d solution should appear clear/colorless. 4) Withdraw 0.5 mL of reconstituted solution into a syringe and administer as a single IM injection. 5) If Pentace l is NOT administered after reconstitution, may be stored refrigerated for 24 hours., [facility] 02/03/2020 12:28 PM CDT 1 mL Deltoid, Right hepatitis B vaccine(PF), ADULT Given (ENGERIX-B) 20 mcg/mL injection 1 mL 1 mL, Intramuscular, ONCE - UNTIL ADMIN , 1 dose, 02/03/20 at 1211, The selecte d vaccine is to be administered at 6 months post transplant., [facility] 02/03/2020 12:30 PM CDT 0.5 mL Deltoid, Left meningococcal/diphtheria vaccine Given (PF)(MCV4O) (MENVEO) Taylor lyophilized component 0.5 mL 0.5 mL, Intramuscular, ONCE - UNTIL ADMIN, 1 dose, 02/03/20 at 1211, The selected vaccine is to be administered at 6 months post transplant., [facility] Infusion 02/03/2020 12:30 PM CDT 1 each Deltoid, Left meningococcal/diphtheria vaccine Given (PF)(MCV4O) (MENVEO) menCYW-135 liquid component 1 each 1 each, Intramuscular, ONCE - UNTIL ADMIN, 1 dose, 02/03/20 at 1211, The selected vaccine is to be administered at 6 months post transplant., [facility] Infusion 02/03/2020 12:27 PM CDT 0.5 mL Deltoid, Right pneumococcal 13-kimberli conj vaccine Given (PF)(PCV13) (PREVNAR-13) injection 0.5 mL 0.5 mL, Intramuscular, ONCE - UNTIL ADMIN, 1 dose, 7/8/20 at 1211, The selected vaccine is to be administered at 6 months post transplant., [facility] 02/03/2020 12:29 PM CDT 1 each Deltoid, Left zoster vaccine recombinant (PF) Given (SHINGRIX) adjuvant suspension componen t (vial 1 of 2) 1 each 1 each, Intramuscular, ONCE - UNTIL ADMIN, 1 dose, 02/03/20 at 1405, Shingrix is supplied in two vials that must be combined prior to administration: 1. Withdraw the entir e contents of the vial containing the Adjuvant Suspension Component (blue-green cap) 2. Slowly transfer entire contents of syringe into the Lyophilized gE Antigen Component vial (brown cap). 3. Gently shake the vial until powder is completely dissolved 4. Withdraw 0.5 mL of reconstituted solution into a syringe and administer as a single IM injection. -- After reconstitution, may store under refrigeration for up to 6 hours; discar d if not used within 6 hours. Do not freeze. Discard if frozen., 02/03/2020 12:30 PM CDT 0.5 mL Deltoid, Left zoster vaccine recombinant (PF) Given (SHINGRIX) lyophilized gE antigen component (vial 2 of 2) 0.5 mL 0.5 mL, Intramuscular, ONCE - UNTIL ADMIN, 1 dose, Sat02/03/20 at 1405, Shingrix is supplied in two vials that must be combined prior to administration: 1. Withdraw the entir e contents of the vial containing the Adjuvant Suspension Component (blue-green cap) 2. Slowly transfer entire contents of syringe into the Lyophilized gE Antigen Component vial (brown cap). 3. Gently shake the vial until powder is completely dissolved 4. Withdraw 0.5 mL of reconstituted solution into a syringe and administer as a single IM injection. -- After reconstitution, may store under refrigeration for up to 6 hours; discar d if not used within 6 hours. Do not freeze. Discard if frozen., documented in this encounter
--- OUTSIDE RECORDS SUMMARY | 2020-02-13 10:24 | XMS REPORT | Encounter Summary ---
Author Author [facility] Organization [facility] Address Unknown Phone Unavailable Care Team Providers Care Cisco Consultant Name Role Phone Lucas Carcamo MD PCP Cindy Carlisle MD [phone] Encounter Details Care Team Description Date Type Department Jessica Fernandez 01/28/2020 Documentation [facility] [address] [place], [place] [id number] [address] [place] [address] [place] [phone] Social History Date Tobacco Use Types Packs/Day [...] Travel Start No recent travel history available. documented as of this encounter Functional Status [...] as of this encounter Progress Notes * Jessica Fernandez - 01/28/2020 2:45 PM CDT documented in this encounter Plan of Treatment Not on filedocumented as of this encounter Goals Goal Patient Associated Recent Progress Patient-Stat Aut hor Goal Type Problems ed? GOAL General No Natasha Almazan, RN Note: Rest and recover documented as of this encounter Visit Diagnoses Not on filedocumented in this encounter
--- OUTSIDE RECORDS SUMMARY | 2020-02-13 10:24 | XMS REPORT | Encounter Summary ---
Author Author [facility] Organization [facility] Address Unknown Phone Unavailable Care Team Providers Care Photocopying Equipment Repairer Name Role Phone Lucas Carcamo MD PCP Cindy Carlisle MD [phone] Reason for Visit * Reason Comments BMT Follow-up Encounter Details Care Team Description Date Type Department Kelly Martin RN BMT Follow-up 10/30/[address] [place] [phone] Social History Date Tobacco Use Types Packs/Day [...] encounter Miscellaneous Notes * Telephone Encounter - Kelly Martin, RN - 10/30/2019 3:46 PM CDT Called patient to speak about questions regarding his medical care after receivmaryann leonard word from post-registrars he wanted to speak with someone from his clinical t eam. Patient is not able to make multiple trips to [place] because of financial r easons. Cardiology has pushed out testing and follow up until November or December so he is requesting to reschedule his 100 day bmbx and work up for that timeframe as w asiya- he needs to do it all on the same dates. He is also asking about maintenance revlimid after transplant and would this wou ld start. Advised patient that maintenance therapy is usually recommended to sta rt after the 100 day evaluation. Will need to correspond with Dr. Root to dis cuss options if patient does not proceed with 100 day work up until 30-60 days l ater. Patient aware someone from red team will get back in touch with him next w clarisa. documented in this encounter Plan of Treatment Not on filedocumented as of this encounter Goals Goal Patient Associated Recent Progress Patient-Stat Aut hor Goal Type Problems ed? GOAL General No Natasha Almazan, MARIYA Note: Rest and recover documented as of this encounter Visit Diagnoses Not on filedocumented in this encounter
--- OUTSIDE RECORDS SUMMARY | 2020-02-13 10:24 | XMS REPORT | Encounter Summary ---
Author Author [facility] Organization [facility] Address Unknown Phone Unavailable Care Team Providers Care Handle Assembler Name Role Phone Lucas Carcamo MD PCP Cindy Carlisle MD [phone] Reason for Visit * Reason Comments Labs Only Encounter Details Care Team Description Date Type Department Hunter Root, [address] [place] [address] Multiple myeloma, remission status unspe cified ([facility]); H/O autologous stem cell transplant ([facility]) 11/10/2019 Nurse Only [facility] [address] [phone] Social History Date Tobacco Use Types Packs/Day [...] history available. Date Recorded COVID-19 Exposure Response 11/10/2019 8:51 AM CDT In the last month, have [...] and recover documented as of this encounter Procedures Comments Procedure Name Priority Date/Time Associated Diag nosis MANUAL DIFF Routine 11/10/2019 9:01 AM CDT HC IMMUNO FIX SERUM Routine 11/10/2019 Multiple m yeloma, (IFES) 9:01 AM CDT remission status unspecified (HCC) H/O autologous stem cell transplant (HCC) HC KAPPA QNT FLC(KLFLC) Routine 11/10/2019 Multip le myeloma, 9:01 AM CDT remission status unspecified (HCC) H/O autologous stem cell transplant (HCC) HC CBC W/ AUTOMATED DIFF Routine 11/10/2019 Multi ple myeloma, 9:01 AM CDT remission status unspecified (HCC) H/O autologous stem cell transplant (HCC) HC ELECTROPHORESIS-SERUM Routine 11/10/2019 Multi ple myeloma, 9:01 AM CDT remission status unspecified (HCC) H/O autologous stem cell transplant (HCC) HC MAGNESIUM Routine 11/10/2019 Multiple myelom a, 9:01 AM CDT remission status unspecified (HCC) H/O autologous stem cell transplant (HCC) HC COMPREHENSIVE Routine 11/10/2019 Multiple myel edith, METABOLIC PANEL 9:01 AM CDT remission status unspecified (HCC) H/O autologous stem cell transplant (HCC) documented in this encounter Results * MANUAL DIFF (11/10/2019 9:01 AM CDT) Segmented 63 41 - 77 % [facility] Neutrophils Lymphocytes 28 24 - 44 % [facility] Monocytes 7 4 - 12 % [facility] Eosinophil 1 0 - 5 % [facility] Basophil 1 0 - 2 % [facility] Platelet NORMAL [facility] Estimate RBC Morph NORMAL [facility] Specimen Performing Organization Address City/[facility] Ph one Number [facility] [address] [place] [address] * CBC AND DIFF (11/10/2019 9:01 AM CDT) White Blood 9.1 4.5 - 11.0 K/UL [facility] Cells RBC 4.11 (L) 4.4 - 5.5 M/UL [facility] Hemoglobin 14.6 13.5 - 16.5 GM/DL [facility] Hematocrit 42.5 40 - 50 % [facility] MCV 103.4 (H) 80 - 100 FL [facility] MCH 35.5 (H) 26 - 34 PG [facility] MCHC 34.3 32.0 - 36.0 G/DL [facility] RDW 15.6 (H) 11 - 15 % [facility] Platelet Count 280 150 - 400 K/UL [facility] MPV 7.9 7 - 11 FL [facility] Neutrophils 63 41 - 77 % [facility] Lymphocytes 27 24 - 44 % [facility] Monocytes 8 4 - 12 % [facility] Eosinophils 1 0 - 5 % [facility] Basophils 1 0 - 2 % [facility] Absolute 5.80 1.8 - 7.0 K/UL [facility] Neutrophil Count Absolute Lymph 2.50 1.0 - 4.8 K/UL [facility] Count Absolute 0.70 0 - 0.80 K/UL [facility] Monocyte Count Absolute 0.10 0 - 0.45 K/UL [facility] Eosinophil Count Absolute 0.10 0 - 0.20 K/UL [facility] Basophil Count Specimen Blood Performing Organization Address City/[email or web address] Ph one Number [facility] [address] [place] [address] * COMPREHENSIVE METABOLIC PANEL (11/10/2019 9:01 AM CDT) Pathologist [facility] Sodium 137 137 - 147 MMOL/L [facility] Potassium 4.2 3.5 - 5.1 MMOL/L [facility] Chloride 105 98 - 110 MMOL/L [facility] Glucose 98 70 - 100 MG/DL [facility] Blood Urea 16 7 - 25 MG/DL [facility] Nitrogen Creatinine 0.97 0.4 - 1.24 MG/DL [facility] Calcium 9.4 8.5 - 10.6 MG/DL [facility] Total Protein 7.0 6.0 - 8.0 G/DL [facility] Total Bilirubin 0.3 0.3 - 1.2 MG/DL [facility] Albumin 4.5 3.5 - 5.0 G/DL [facility] Alk Phosphatase 75 25 - 110 U/L [facility] AST (SGOT) 21 7 - 40 U/L [facility] CO2 25 21 - 30 MMOL/L [facility] ALT (SGPT) 33 7 - 56 U/L [facility] Anion Gap 7 3 - 12 [facility] eGFR Non >60 >60 mL/min [facility] Comment: [place] The eGFR is not validated f or use in drug dosing adjustments. Continue to use estimated creatinine clearance per dosing reference text. Please contact the Clinical Pharmacist for questions. eGFR >60 >60 mL/min [facility] [place] Comment: The eGFR is not validated for use in drug dosing adjustments. Continue to use estimated creatinine clearance per dosing reference text. Please contact the Clinical Pharmacist for questions. Specimen Blood Performing Organization Address [facility] one Number [facility] [address] [place] [address] * MAGNESIUM (11/10/2019 9:01 AM CDT) Pathologist [facility] Magnesium 2.2 1.6 - 2.6 mg/dL [facility] Specimen Blood Performing Organization Address [facility] Ph one Number [facility] [address] [place] [address] * IMMUNOFIXATION, SERUM (IFES) (11/10/2019 9:01 AM CDT) Immuno NO PARAPROTEIN SEEN [facility] Fix-Serum Pathologist INTERPRETED BY JENNIFER VYAS M.D. [facility] Signature By the PATH SIGNATURE ABOVE , I attest that I have personally formulated the final interpretation expressed in this report and that the above diagnosis is based upon my examination of the slides and/or other material indicated in this report. Specimen Blood Performing Organization Address [facility] one Number [facility] [address] [place] [address] * KAPPA/LAMBDA FREE LIGHT CHAINS (11/10/2019 9:01 AM CDT) Buna, FLC 0.63 0.33 - 1.94 MG/DL [facility] Lambda, FLC 0.66 0.57 - 2.63 MG/DL [facility] Buna/Lambda 0.95 0.26 - 1.65 [facility] FLC Specimen Blood Performing Organization Address [facility] one Number [facility] [address] [place] [address] * ELECTROPHORESIS-SERUM PROTEIN (11/10/2019 9:01 AM CDT) Total 6.8 6.0 - 8.0 G/DL [facility] Protein-SEP Albumin % 60.7 48 - 68 % [facility] Alpha 1 % 8.4 (H) 2 - 6 % [facility] Alpha 2 % 13.1 5 - 15 % [facility] Beta %,Serum 9.7 9 - 17 % [facility] Gamma % 8.1 (L) 9 - 21 % [facility] Interpretation HYPOGAMMAGLOBULINEMIA [facility] - SEP Pathologist INTERPRETED BY JENNIFER VYAS M.D. [facility] Signature By the PATH SIGNATURE ABOVE , I attest that I have personally formulated the final interpretation expressed in this report and that the above diagnosis is based upon my examination of the slides and/or other material indicated in this report. Specimen Blood Performing Organization Address [facility] one Number MAIN LAB [address] [place] [address] documented in this encounter Visit Diagnoses Diagnosis Multiple myeloma, remission status unsp ecified (HCC) H/O autologous stem cell transplant (HC C) Peripheral stem cells replaced by trans plant documented in this encounter
--- OUTSIDE RECORDS SUMMARY | 2020-02-13 10:24 | XMS REPORT | Clinical Summary ---
Author Author [facility] Organization [facility] Address Unknown Phone Unavailable Care Team Providers Care Direct Chill Casting Operator Name Role Phone Lucas Carcamo MD PCP Cindy Carlisle MD [phone] Source Comments Some departments are not documenting in the electronic medical record. If you d o not see the information that you expected, contact Release of Information in [facility] [employer] Information Management department at [phone] for further assistan ce in locating additional records.[facility] Allergies No Known Allergies Medications End Date Status Medication Sig Dispensed Refills Start Date Active pantoprazole DR Take one 90 tablet 1 (PROTONIX) 40 mg tablet tablet by 0 mouth daily. Active oxyCODONE (ROXICODONE) 5 Take one 60 tablet 0 0 mg tablet tablet by 0 mouth every 6 hours as needed for Pain Active aspirin 325 mg tablet Take one 90 tablet 0 tablet by 0 mouth daily. Take with food. 02/03/2020 Discontinued DIPH/LIDO/ANTACID 1:1:1 Swish and 240 mL 1 (COMPOUND)Indications: Swallow 10 mL 9 Multiple myeloma not by mouth as having achieved remission directed four (HCC) times daily as needed for mouth pain. 02/03/2020 Discontinued prochlorperazine maleate Take one 60 tablet 1 1 (COMPAZINE) 10 mg tablet by 9 tabletIndications: mouth every 6 Multiple myeloma not hours as having achieved remission needed for (HCC) Nausea or Vomiting. Use as first option for breakthrough nausea 02/03/2020 Discontinued loperamide (IMODIUM A-D) Take 2 30 capsule 0 0 2 mg capsule capsules by 0 mouth initially, followed by 1 capsule by mouth after each loose stool up to a maximum of 8 tablets in 24 hours. 02/03/2020 Discontinued ondansetron (ZOFRAN) 4 mg Take one 30 tablet 1 tablet tablet by 0 mouth every 6 hours as needed for Nausea or Vomiting. 02/03/2020 Discontinued acyclovir (ZOVIRAX) 800 Take 1 tablet 60 tablet 5 mg tabletIndications: by mouth 0 Multiple myeloma not twice a day having achieved remission starting on () Day -1. 02/03/2020 Discontinued trimethoprim/sulfamethoxa Take one 16 tablet 3 zole (BACTRIM DS) 160/800 tablet by 0 mg tablet mouth twice daily twice weekly. Clinic will instruct when to start. Active Problems Problem Noted Date Loose stools 08/06/2019 Pancytopenia 08/05/2019 Stem cells transplant status 08/05/2019 Moderate malnutrition 07/30/2019 Failure to thrive in adult 07/28/2019 Decreased appetite 07/28/2019 CINV (chemotherapy-induced nausea and vomiting) 06/29 Back pain 07/25/2019 History of auto stem cell transplant 07/24/2019 Bone pain 07/23/2019 Infected tooth 07/23/2019 Leucocytosis 07/20/2019 Anxiety 07/08/2019 Intermittent chest pain 07/08/2019 Multiple myeloma in remission 03/19/2019 Encounter for smoking cessation counseling 9 Resolved Problems Problem Noted Date Resolved Date Conditioning chemotherapy prior to peripheral blood s tem cell transplant 07/23/2019 07/27/2019 Encounters Care Team Description Date Type Specialty Greg Branham M.S.M., MD 02/03/2020 Hospital Oncology Encounter Bandar Bates MD Abdelhakim, Haitham M.S.M., MD Multiple myeloma in remission (HCC) (Leia ne Dx); History of auto stem cell transplant ([facility]) 02/03/2020 Office Visit Oncology 02/03/2020 Travel Jessica Fernandez 01/28/2020 Documentation Oncology Jessica Fernandez BMT Follow-up (180 day (01/19) labs, PET) 12/24/2019 Telephone Oncology Ne Yun RN Patient Questions 12/03/2019 Telephone Oncology Hunter Root DO Abhyankar, Sunil H, MD H/O autologous stem cell transplant (HCC ) (Primary Dx); Multiple myeloma not having achieved remission (HCC); Multiple myeloma in remission (HCC); History of auto stem cell transplant (HCC) 11/27/2019 Office Visit Oncology 11/27/2019 Travel Rigo Allen MD Pre-Visit Planning 11/26/2019 Telephone Oncology Jessica Ortega BMT Follow-up (100 day LTFU) 11/24/2019 Documentation Oncology from Last 3 Months Immunizations Name Administration Dates Next Due Diphth/Tet/Pertus/HIB/Stuart 02/03/2020 io (PENTACEL) (DTaP-IPV) component (vial 1 of 2) (PF) injection Diphth/Tet/Pertus/HIB/Stuart 02/03/2020 io (PENTACEL) (HIB) component (vial 2 of 2) (PF) Injection Flu Vaccine =>6 Months 08/11/2019 Quadrivalent PF Hepatitis B Vaccine Adult 02/03/2020 3 Dose IM Meningococcal Conjug 02/03/2020 Vaccine IM (Menveo) Magana Component 1 Meningococcal Conjug 02/03/2020 Vaccine IM (Menveo) MenCYW-135 Component 2 Pneumococcal 02/03/2020 Vaccine(13-[facility]/immunocompromised adult) Zoster Vaccine 02/03/2020 Recombinant, Adjuvanted (shingles) IM (vial 2 of 2)(SHINGRIX) Zoster Vaccine 02/03/2020 Recombinant, adjuvant suspension component (vial 1 of 2)(SHINGRIX) Family History Medical History Relation Name Comments Cancer Father Cancer-Colon Maternal Grandmother Cancer Mother Relation Name Status Comments Father Maternal Grandmother Mother Social History Date Tobacco Use Types Packs/Day [...] or suspected to have Coronavirus / COVID-19? Last Filed Vital Signs Reading Time Taken Comments Vital Sign 115/73 02/03/2020 11:22 AM CDT Blood Pressure 65 02/03/2020 11:22 AM CDT Pulse 36.4 C (97.6 F) 02/03/2020 11:22 AM CDT Temperature 14 02/03/2020 11:22 AM CDT Respiratory Rate 98% 02/03/2020 11:22 AM CDT Oxygen Saturation - - Inhaled Oxygen Concentration 86.9 kg (191 lb 9.6 oz) 02/03/2020 11:22 AM CDT Weight 170.2 cm (5' 7.01") 08/06/2019 9:17 AM AUTOMATIC SPOOLER OPERATOR Height 30 08/06/2019 9:17 AM AUTOMATIC SPOOLER OPERATOR Body Mass Index Plan of Treatment Health Maintenance Due Date Last Done Comments HIV SCREENING 01/03/1979 DTAP/TDAP VACCINES (1 - 01/03/1982 02/03/2020 Tdap) HEPATITIS C SCREENING 01/03/1982 PHYSICAL (COMPREHENSIVE) 01/03/1982 EXAM COLORECTAL CANCER 01/03/2014 SCREENING SHINGLES RECOMBINANT 03/30/2020 02/03/2020 VACCINE (2 of 2) INFLUENZA VACCINE 04/28/2020 08/11/2019 Goals Goal Patient Associated Recent Progress Patient-Stat Aut hor Goal Type Problems ed? GOAL General No Natasha Almazan RN Note: Rest and recover Implants Device Identifier Shelf Expiration Date Model / Serial / L ot Implanted Type Area Manufactur [id number] 02/25/2021 [id number] / N/A / [id number] Catheter 19cm 12fr Chicas Right: Chest BARD Trifusion Carbothane 3 Lumen - Sn/A ACCESS Implanted: Qty: 1 on 07/17/2019 by Kj [place] MD at [facility] Results Not on filefrom Last 3 Months Insurance Type Payer Benefit Subscriber ID Effective Phone Address Plan / Dates Group PPO BCBS [facility] xxxxxxxxxxxx [id number] PREF CARE resent BLUE [id number] CinthyaVarinder galindondell Transplant Self 1965 [address] (Home) [place] [address] Advance Directives Patient Mineral Economist Explanation Type Date Recorded Advance 07/30/2019 4:17 PM Directive/DPOA Date Inactivated Comments Code Status Date Activated 08/04/2019 7:03 PM Full Code 07/28/2019 3:49 PM Provider has discussed Code Status No, discussion no t w/Patient or Family? necessary based on Dx
--- OUTSIDE RECORDS SUMMARY | 2020-02-13 10:24 | XMS REPORT | Encounter Summary ---
Author Author [facility] Organization [facility] Address Unknown Phone Unavailable Care Team Providers Care Pediatric Hospitalist Name Role Phone Lucas Carcamo MD PCP Cindy Carlisle MD [phone] Encounter Details Care Team Description Date Type Department 02/03/2020 Travel Social History Date Tobacco Use Types [...]
--- OUTSIDE RECORDS SUMMARY | 2020-02-13 10:24 | XMS REPORT | Encounter Summary ---
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 Name Role Phone Lucas Carcamo MD PCP Cindy Carlisle MD [phone] Reason for Referral * Radiology Services (Routine) Referred By Contact Referred To Contact Status Reason Specialty Diagnoses / Procedures Greg Branham M.S.M., MD [address] [place] [phone] New Request Radiology Diagnoses Multiple myeloma in remission (HCC) History of auto stem cell transplant (HCC) P rocedures IR BONE MARROW BIOPSY * Radiology Services (Routine) Referred By Contact Referred To Contact Status Reason Specialty Diagnoses / Procedures Greg Branham M.S.M., MD [address] [place] [phone] New Request Radiology Diagnoses Multiple myeloma in remission (HCC) History of auto stem cell transplant (HCC) P rocedures NM PET SCAN WHOLEBODY (HEAD-TOES) Reason for Visit * Reason Comments BMT Follow-up Fatigue Pain Encounter Details Care Team Description Date Type Department Bandar Bates MD [address] [facility] [place] [address] [place] [address] [place] [id number] Multiple myeloma in remission (HCC) (Leia jernigan Dx); History of auto stem cell transplant (HCC) 02/03/2020 Office Visit [facility] [address] [facility] [address] [place] [phone] Social History Date Tobacco Use Types Packs/Day [...] 9.6 oz) 02/03/2020 11:22 AM CDT Weight - - Height 30 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 Cindy Carlisle [phone] 02/02- This RN was not present in the MD visit. Pt here for his 180 day LTFU. Acyclovir and Bactrim d/c. Now following with Dr. Carroll. RTC per LTFU * Greg Branham M.S.M., MD - 02/03/2020 11:30 AM CDT Name: Varinder Mendes : 1965 AGE: 55 y.o. DATE OF SERVICE: 02/03/2020 Reason for Visit: Day +194/Auto SCT/Dee 200/MM BMT Follow-up; Fatigue; and Pain Subjective: Here for day 180 post Auto SCT. He is doing well, tolerating revlim id with no major issues. Transplant History: Date of Transplant: 07/24/19 Transplant [...] of Present Illness Varinder Mendes is a 55 y.o. male with recently dx IgA Lambda [...] Dr. Root REFERRING PHYSICIAN: Dr. Cindy Carlisle [phone] INSURANCE: [employer] [place] Allergies: NKDA Family Hx: Not on [...] transplant. Timeline of Events: 11/17/18 MRI [facility] Thoracic Spine w/o contrast: Mild thoracic spondylosis. [...] aspiration: Abundant plasma cells. 11/26/18 BIOPSY [facility] Bone, L4, core biopsy: Plasma cell neoplasm. [...] lesions are s een. 12/30/18 PET/CT [facility] Skull Base to Midthigh: Solitary site of hypermetabolism i nvolving the expansile lytic lesion of L4 (max SUV 4.7). No other significant ab normality is detected. 01/02/19 LAB WBC: 12.1 HGB: 14.2 HCT: 41 PLT: 216 ANC: 8.8 01/02/19 BMBX [facility] Bone marrow, aspiration, clot, and biopsy: Plasma [...] the IGH(14q32) region. 12/15/18- 01/20/19 RADIATION [facility] L4 Spine Lesion 5,000 cGy over 25 fractions. 02/18/19 MRI [facility] Lumbar Spine w/o contrast: 1. The expansile [...] RVD Review of Systems Constitutional: Positive for fatigue (mild). Negative for activity change (decre ase d/t back/leg pain), appetite change (improved), chills, diaphoresis, fever a nd unexpected weight change. HENT: Negative for congestion, dental [...] weekly. Clinic will instruct when to start. Vitals: 02/03/20 1122 02/03/20 1123 BP: 115/73 Pulse: 65 Resp: 14 Temp: 36.4 C (97.6 F) TempSrc: Oral SpO2: 98% Weight: 86.9 kg (191 lb 9.6 oz) PainSc: Seven Seven Body mass index is 30 kg/m. Pain Addressed: Current regimen working to control pain. Patient Evaluated for a Clinical Trial: Patient currently in screening for a [facility] clinical trial. Eastern Cooperative Oncology Group performance [...] clear. PERRL, EOMs intact. Throat: Poor dentition. Moist MM. Neck: Supple, symmetrical, trachea midline, no adenopathy, [...] sensation throughout. Musculoskeletal: Normal / Negative Psych: normal affect Comprehensive Metabolic Profile CMP Latest Ref Rng [...] - - 0.00 - Documentation 11/24/2019 [facility] Jessica Ortega BMT Follow-up Reason for Visit Progress Notes [...] Laurent RN Primary Diagnosis: IgA and Lambda. Day +194/Auto SCT/Dee 200 mg/m2 - S/P RVD x 4 cycles, achieved SC. - Bhh367 and AutoSCT followed by Revlimid maintenance. - Disease assessment at Day 100 shows CR. - D180 eval: Normal K/L, no paraprotein. PET scan in November with no PET avid lesion s. -Revlimid 10 mg daily maintenance. -Next assessment 1 year Heme: - Counts recovered. Transfusion independent. -Transfuse for Hgb<7 and plts<10. -start aspirin prophylaxis with Revlimid FEN/Renal: Replace electrolytes per BMT high goal protocol(Has RBBB). -Renal function wnl. -Edema resolved - Oral intake improving GI: -no NVD - LFTs stable Cardiovascular: EKG 07/07/19 showing BBB.Unremarkable echo Infectious Disease: Afebrile. No active infections. --Ppx: acyclovir. And Bactrim for 6 months. Can stop. - 08/06: Trifusion removed in IR. -received po antibiotics for tooth extraction. Pulmonary: Hx of LT pipe smoker X 36 yrs.07/08/19 quit smoking. Pain: Hx of chronic back pain that radiates down his legs R>L.Controlled with Oxycodone 5 mg prn. Continues to have mid back pain. PET scan negative. 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 - See nursing notes from 07/29 regarding patient speaking about his . Talked to outside room 07/30 and she reported she feels safe and is used to the way he talks to her. - Social work and case management following, consult onc-psych. RTC: f/u with Hem Onc in [place]. Return to BMT for one year. Greg Branham MD C DT documented in this encounter Miscellaneous Notes * Addendum Note - Shaun Martini RN - 02/03/2020 11:30 AM CDT Addended by: SHAUN MARTINI on: 02/04/2020 07:35 AM Modules accepted: Orders, SmartSet documented in this encounter Plan of Treatment Order Schedule Name Type Priority Associated Diag noses Expected: 07/24/2020 (Approximate), Expi res: 02/03/2021 CBC AND DIFF Lab Routine Multiple myelom a in remission (HCC) History of auto stem cell transplant (HCC) Expected: 07/24/2020 (Approximate), Expi res: 02/03/2021 COMPREHENSIVE METABOLIC Lab Routine Multip le myeloma in PANEL remission (HCC) History of auto stem cell transplant (HCC) Expected: 07/24/2020 (Approximate), Expi res: 02/03/2021 MAGNESIUM Lab Routine Multiple myelom a in remission (HCC) History of auto stem cell transplant (HCC) Expected: 07/24/2020 (Approximate), Expi res: 02/03/2021 KAPPA/LAMBDA FREE LIGHT Lab Routine Multip le myeloma in CHAINS remission (HCC) History of auto stem cell transplant (HCC) Expected: 07/24/2020 (Approximate), Expi res: 02/03/2021 IMMUNOFIXATION, SERUM Lab Routine Multiple myeloma in (IFES) remission (HCC) History of auto stem cell transplant (HCC) Expected: 07/24/2020 (Approximate), Expi res: 02/03/2021 ELECTROPHORESIS-SERUM Lab Routine Multiple myeloma in PROTEIN remission (HCC) History of auto stem cell transplant (HCC) Expected: 07/24/2020 (Approximate), Expi res: 02/03/2021 NM PET SCAN WHOLEBODY Imaging Routine Multiple myeloma in (HEAD-TOES) remission (HCC) History of auto stem cell transplant (HCC) Expected: 07/24/2020 (Approximate), Expi res: 02/03/2021 CBC AND DIFF Lab Routine Multiple myelom a in remission (HCC) History of auto stem cell transplant (HCC) Expected: 07/24/2020 (Approximate), Expi res: 02/03/2021 BONE MARROW ASPIRATION Procedures Routine Multipl e myeloma in PROCEDURE remission (HCC) History of auto stem cell transplant (HCC) Expected: 07/24/2020 (Approximate), Expi res: 02/03/2021 BIOPSY BONE MARROW Procedures Routine Multiple my eloma in PROCEDURE remission (HCC) History of auto stem cell transplant (HCC) Expected: 07/24/2020 (Approximate), Expi res: 02/03/2021 IR BONE MARROW BIOPSY Imaging Routine Multiple myeloma in remission (HCC) History of auto stem cell transplant (HCC) Expected: 07/24/2020 (Approximate), Expi res: 02/03/2021 BONE MARROW ASP Pathology Routine Multiple myelo ma in remission (HCC) History of auto stem cell transplant (HCC) Expected: 07/24/2020 (Approximate), Expi res: 02/03/2021 BONE MARROW BIOPSY Pathology Routine Multiple my eloma in remission (HCC) History of auto stem cell transplant (HCC) Expected: 07/24/2020 (Approximate), Expi res: 02/03/2021 LEUKEMIA/LYMPHOMA PNL, Pathology Routine Multipl e myeloma in BONE MARROW remission (HCC) History of auto stem cell transplant (HCC) Expected: 07/24/2020 (Approximate), Expi res: 02/03/2021 CHROMOSOMES BONE MARROW Pathology Routine Multip le myeloma in remission (HCC) History of auto stem cell transplant (HCC) documented as of this encounter Goals Goal Patient Associated Recent Progress Patient-Stat Aut hor Goal Type Problems ed? GOAL General No Natasha Almazan, RN Note: Rest and recover documented as of this encounter Visit Diagnoses Diagnosis Multiple myeloma in remission (HCC) Multiple myeloma in remission History of auto stem cell transplant (H CC) Peripheral stem cells replaced by trans plant documented in this encounter
--- OUTSIDE RECORDS SUMMARY | 2020-02-13 10:24 | XMS REPORT | Encounter Summary ---
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
--- OUTSIDE RECORDS SUMMARY | 2020-02-13 10:24 | XMS REPORT | Encounter Summary ---
Author Author [facility] Organization [facility] Address Unknown Phone Unavailable Care Team Providers Care Resource Conservationist Name Role Phone Lucas Carcamo MD PCP Cindy Carlisle MD [id number] Reason for Referral * Radiology Services (Routine) Referred By Contact Referred To Contact Status Reason Specialty Diagnoses / Procedures Amyaa Vela APRN-NP [address] [place] [address] [address] [place] [address] [address] No Auth Needed Radiology Diagnoses Stem cells transplant status (HCC) Multiple myeloma, remission status unspecified (HCC) P rocedures IR BONE MARROW BIOPSY Reason for Visit * Radiology Services (Routine) Referred By Contact Referred To Contact Status Reason Specialty Diagnoses / Procedures Amaya Vela APRN-NP [address] [place] [address] [place] [place] [address] [address] No Auth Needed Radiology Diagnoses Stem cells transplant status (HCC) Multiple myeloma, remission status unspecified (HCC) P rocedures IR BONE MARROW BIOPSY Encounter Details Care Team Description Date Type Department Amaya Vela APRN-NP [address] [place] [address] [phone] Igor Garcia, Joy Kee, RT(R)(),LRT Aaron Marina MD [address] [address] Stem cells transplant status (HCC) 11/10/2019 [facility] Radiology [address] [address] Social History Date Tobacco Use Types Packs/Day [...] Signs Reading Time Taken Comments Vital Sign 135/85 11/10/2019 1:10 PM CDT Blood Pressure 66 11/10/2019 1:10 PM CDT Pulse 36.5 C (97.7 F) 11/10/2019 12:45 PM CDT Temperature - - Respiratory Rate 98% 11/10/2019 1:10 PM CDT Oxygen Saturation - - Inhaled Oxygen Concentration - - Weight - - Height - - Body Mass Index documented in this encounter [...] impairment: No documented as of this encounter Discharge Instructions * Patient Instructions* Carmen Llanos RN - 11/10/2019 11:04 AM CDT Interventional Radiology-Discharge Instructions Bone Marrow Aspiration Bone marrow is the major site of blood cell formation. A bone marrow specimen ma y be obtained by aspiration or needle biopsy. Aspiration removes cells through a needle inserted into the marrow cavity of the bone. A biopsy removes a sm all, solid core of marrow tissue through the needle. Aspiration/Needle Biopsies helps with the diagnosis of leukemia, anemias, and ot her blood disorders. POST-PROCEDURE ACTIVITY: A responsible adult must drive you home. If you receive sedation or anesthe marianne, do not drive, operate heavy machinery or do anything that requires concentr ation for at least 24 hours. It is recommended that a responsible adult be with you until morning. Keep moving to decrease hip soreness. Avoid any strenuous activity for the next 2-3 days following the procedure. POST-PROCEDURE SITE CARE: Keep the area clean and dry for 24 hours Be sure your hands are clean when touching near the site. You will have a bandage over the site. Keep this dry. You may remove it i n 24 hours. You may shower after the first 24 hours. You may replace the previous ban dage with a Band-aide if desired. Discomfort at site may occur for 2-3 days following the procedure. You may apply ice to the area; 15-20 minutes. May repeat ice every 2 hour s as needed. Do not submerge the site underwater for one week (no tub bath, swimming, hot tub, etc.) Do not use ointments, creams or powders on the puncture site. DIET/MEDICATIONS: You may resume your previous diet after the procedure. If you receive sedation or anesthesia, avoid any foods or beverages containin g alcohol for at least 24 hours. Please see the Medication Reconciliation sheet for instructions regarding res uming your home medications. Drink plenty of fluids for the next 24-48 hours. WHEN TO CALL THE DOCTOR: Bright red blood soaks the bandage. You have new or worsened pain. Some soreness is to be expected. You have new or worsened signs of infection such as: -Redness or swelling -Fever greater than 101?F You or your caregiver should call 911 for any severe bleeding, dizziness, shortn ess of breath or loss of consciousness. For any of the above symptoms or for problems or concerns related to the procedu re,call [phone] for Saturday-Saturday 7-5. After-hours and weekends, pl ease [phone] and ask for the Interventional Enterprise Application Analyst on-c all. documented in this encounter Medications at Time of Discharge Start Date End Date Medication Sig Dispensed Refills 08/06/2019 oxyCODONE (ROXICODONE) 5 Take one 60 tablet 0 mg tablet tablet by mouth every 6 hours as needed for Pain 08/04/[address] Take one 90 tablet 1 (PROTONIX) 40 mg tablet tablet by mouth daily. 07/23/2019 11/27/2019 acyclovir (ZOVIRAX) 800 Take 1 tablet 60 tablet 5 mg tabletIndications: by mouth Multiple myeloma not twice a day having achieved remission starting on (HCC) Day -1. 07/23/2019 02/03/2020 DIPH/LIDO/ANTACID 1:1:1 Swish and 240 mL 1 (COMPOUND)Indications: Swallow 10 mL Multiple myeloma not by mouth as having achieved remission directed four (HCC) times daily as needed for mouth pain. 08/04/2019 02/03/2020 loperamide (IMODIUM A-D) Take 2 30 capsule 0 2 mg capsule capsules by mouth initially, followed by 1 capsule by mouth after each loose stool up to a maximum of 8 tablets in 24 hours. 08/04/2019 02/03/2020 ondansetron (ZOFRAN) 4 mg Take one 30 tablet 1 tablet tablet by mouth every 6 hours as needed for Nausea or Vomiting. 07/23/2019 02/03/2020 prochlorperazine maleate Take one 60 tablet 1 (COMPAZINE) 10 mg tablet by tabletIndications: mouth every 6 Multiple myeloma not hours as having achieved remission needed for (HCC) Nausea or Vomiting. Use as first option for breakthrough nausea 08/10/2019 11/27/2019 trimethoprim/sulfamethoxa Take one 16 tablet 3 zole (BACTRIM DS) 160/800 tablet by mg tablet mouth twice daily twice weekly. Clinic will instruct when to start. documented as of this encounter Progress Notes * Igor Garcia RN - 11/10/2019 12:32 PM CDT Sedation physician present in room. Recent vitals and patient condition reviewe d between sedating physician and nurse. Reassessment completed. Determination made to proceed with planned sedation. * Divina Gonsalez RN - 11/10/2019 12:00 PM CDT Interventional Radiology Outpatient Scheduling Checklist 1. Name of Procedure(s): BMBX 2. Date of Procedure: 11/10/19 3. Arrival Time: 1100 4. Procedure Time: 1200 5. Correct Procedural Room Assignment: 6. Blood Thinners Triaged and instructed per protocol: Y/N/NA: NA Confirmed accurate instructions sent to patient: Y/N: NA 7. Procedure Order Verified: Y/N: Yes 9. Patient instructed to have a boom truck driver: Y/N/NA: Yes 10. Patient instructed on NPO status: Y/N/NA: Yes 0400/1000 Confirmed accurate instructions sent to patient: Y/N: Yes 11. Specimen needed: Y/N/NA: Yes Verified Order placed: Y/N: Yes 12. Allergies Verified: Y/N: Yes 13. Is there an Iodine Allergy: Y/N: No Does the Procedure Require contrast: Y/N: Yes If so, was the IR- Contrast Allergy Pre-Procedure Medication protocol ordered: Y /NA: NA 14. Does the patient have labs according to IR Pre-procedure Laboratory Paramet er policy: Y/N/NA: Yes If No, was the patient instructed to obtain labs prior to procedure: Y/N/NA: NA 15. Will the patient need to be admitted or have a possible admission: Y/N: No If yes, confirmed accurate instructions sent to patient: Y/N/NA: NA 16. Patient States Understanding: Y/N: Yes 17. History of [place]: Y/N: No If yes, confirm request to bring CPAP sent to patient: Y/N/NA: NA 18. Patient declines electronic procedure instructions: Y/N: Yes documented in this encounter H&P Notes * Vivian Pedroza, TROY - 11/10/2019 10:50 AM CDT Pre-Procedure History and Physical/Sedation Plan Procedure Date: 11/10/2019 Planned Procedure(s): Bone marrow biopsy and aspiration Indication: S/P stem cell transplant Chief Complaint: Myeloma History of Present Illness: Annabelle Gupta is a 54 y.o. male with a histor y significant for Myeloma who presents today for procedure. Patient Active Problem List Diagnosis Date Noted Loose stools 08/06/2019 Pancytopenia (HCC) 08/05/2019 Stem cells transplant status (HCC) 08/05/2019 Moderate malnutrition (HCC) 07/30/2019 Class: Acute Failure to thrive in adult 07/28/2019 Decreased appetite 07/28/2019 CINV (chemotherapy-induced nausea and vomiting) 07/26/2019 Back pain 07/25/2019 History of auto stem cell transplant (HCC) 07/24/2019 Bone pain 07/23/2019 Infected tooth 07/23/2019 Leucocytosis 07/20/2019 Anxiety 07/08/2019 Intermittent chest pain 07/08/2019 Multiple myeloma not having achieved remission (HCC) 03/19/2019 Encounter for smoking cessation counseling 03/19/2019 Medical History: Diagnosis Date Anxiety Back pain H/O autologous stem cell transplant (HCC) Multiple myeloma and immunoproliferative neoplasms (HCC) Surgical History: Procedure Laterality Date HX SKIN BIOPSY nevous removed from left eye Medications Prior to Admission Medication Sig Dispense Refill Last Dose acyclovir (ZOVIRAX) 800 mg tablet Take 1 tablet by mouth twice a day startin g on Day -1. 60 tablet 5 Taking DIPH/LIDO/ANTACID 1:1:1 (COMPOUND) Swish and Swallow 10 mL by mouth as direc sebastian four times daily as needed for mouth pain. 240 mL 1 Taking loperamide (IMODIUM A-D) 2 mg capsule Take 2 capsules by mouth initially, fo llowed by 1 capsule by mouth after each loose stool up to a maximum of 8 tablets in 24 hours. 30 capsule Taking ondansetron (ZOFRAN) 4 mg tablet Take one tablet by mouth every 6 hours as n eeded for Nausea or Vomiting. 30 tablet 1 Taking oxyCODONE (ROXICODONE) 5 mg tablet Take one tablet by mouth every 6 hours as needed for Pain 60 tablet [address] (PROTONIX) 40 mg tablet Take one tablet by mouth daily. 90 t ablet 1 Not Taking prochlorperazine maleate (COMPAZINE) 10 mg tablet Take one tablet by mouth e very 6 hours as needed for Nausea or Vomiting. Use as first option for breakthro ugh nausea 60 tablet 1 Not Taking trimethoprim/sulfamethoxazole (BACTRIM DS) 160/800 mg tablet Take one tablet by mouth twice daily twice weekly. Clinic will instruct when to start. 16 tablet 3 Taking No Known Allergies Social History: Social History Tobacco Use Smoking status: Former Smoker Years: 36.00 Types: Pipe Last attempt to quit: 07/03/2019 Years since quittin.3 Smokeless tobacco: Never Used Tobacco comment: pt reports 07/08 that he has quit smoking Substance Use Topics Alcohol use: Not Currently Comment: None for one year, previously 1x/week, 0.5-1 pint each occasion Family History Problem Relation Age of Onset Cancer Mother Cancer Father Cancer-Colon Maternal Grandmother Review of Systems A comprehensive review of systems was negative. Previous Personal Anesthetic/Sedation History: Denies adverse events related to sedation/anesthesia. Previous Family Anesthetic/Sedation History: Denies adverse events related to se dation/anesthesia. Physical Exam: Vital Signs: Last Filed In 24 Hours Vital Signs: 24 Hour Range General appearance: alert and no distress noted. Neurologic: Grossly normal. Lungs: Non labored. Heart: regular rate and rhythm Airway: airway assessment performed Mallampati II (soft palate, uvula, fauces v isible) Head and Neck: no abnormalities noted Mouth: no abnormalities noted NPO status: Acceptable Status: Not Anesthesia Classification: ASA III (A patient with a severe systemic disease th at limits activity, but is not incapacitating) Pre-operative anxiolysis Plan: Versed Sedation/Medication Plan: Fentanyl, Lidocaine and Midazolam Discussion/Reviews: Physician has discussed risks and alternatives of this type of sedation and above planned procedures with patient Lab/Radiology/Other Diagnostic Tests: Labs: Pertinent labs reviewed Vivian Kasia, JOCKEY ROOM CUSTODIAN Pager [phone] documented in this encounter Miscellaneous Notes * Procedures (Immed Post or Bedside) - Kj Villareal MD - 11/10/2019 1:17 PM CDT Immediate Post Procedure Note Date: 11/10/2019 Attending Physician: Baron Marina MD Performing Provider: Kj Villareal MD Consent: Consent obtained from patient. Time out performed: Consent obtained, correct patient verified, correct procedur e verified, correct site verified, patient marked as necessary. Pre/Post Procedure Diagnosis: MM Indications: MM Anesthesia: Local 10 mL 2% lidocaine without epinephrine with IV sedation Versed /Fentanyl Procedure(s): BM Biopsy Findings: Aspirate x2/Biopsy x1 Estimated Blood Loss: None/Negligible Specimen(s) Removed/Disposition: Cytology present Complications: None Patient Tolerated Procedure: Well Post-Procedure Condition: unchanged Kj Villareal MD documented in this encounter Plan of Treatment Not on filedocumented as of this encounter Goals Goal Patient Associated Recent Progress Patient-Stat Aut hor Goal Type Problems ed? GOAL General No Natasha Almazan RN Note: Rest and recover documented as of this encounter Procedures Comments Procedure Name Priority Date/Time Associated Diag nosis HC LVL IV SRG PTH, GROSS 11/10/2019 & MICRO 12:57 PM CDT [place] FLOW CYTOMETRY INTERPJ 11/10/2019 9-15 MARKERS 12:41 PM CDT LEUKEMIA/LYMPHOMA PNL, Routine 11/10/2019 Stem ce lls transplant BONE MARROW 12:41 PM CDT status (HCC) Multiple myeloma, remission status unspecified (HCC) CHROMOSOMES FISH DNA Routine 11/10/2019 Stem cell s transplant PROBE 12:41 PM CDT status (HCC) Multiple myeloma, remission status unspecified (HCC) CHROMOSOMES BONE MARROW Routine 11/10/2019 Stem c ells transplant 12:41 PM CDT status (HCC) Multiple myeloma, remission status unspecified (HCC) BONE MARROW ASP Routine 11/10/2019 Stem cells tra nsplant 12:41 PM CDT status (HCC) Multiple myeloma, remission status unspecified (HCC) BONE MARROW BIOPSY Routine 11/10/2019 Stem cells transplant 12:41 PM CDT status (HCC) Multiple myeloma, remission status unspecified (HCC) IR BONE MARROW BIOPSY Routine 11/10/2019 Stem teo ls transplant 12:31 PM CDT status (HCC) Multiple myeloma, remission status unspecified (HCC) documented in this encounter Results * BONE MARROW (11/10/2019 12:57 PM CDT) PATHOLOGY [facility] [employer] [facility] [email or web address] Department of Pathology and Laboratory Medicine [address] [place] [id number] Surgical Pathology Office: [phone] SURGICAL PATHOLOGY REPORT NAME: ALONSOANNABELLE Taveras SURG PATH #: [id number] MR #: [id number] ALT ID #: LOCATION: DATE OF PROCEDURE: 11/10/2019 AGE: 54 SEX: M DATE RECEIVED: 11/10/2019 : 1965 TIME RECEIVED: 12:57 PHYSICIAN: NARCISO SANCHEZ DATE OF REPORT: 11/11/2019 COPY TO: DATE OF PRINTIN11/11/2019 ############################## ############################## ############ Final Diagnosis: Bone marrow, left iliac crest, aspirate, biopsy, clot, and touch prep: Normocellular marrow (30-40%), normal trilineage hematopoiesis, and 1% polyclonal plasma cells Peripheral blood smear: Normal Attestation: By this signature, I attest that I have personally formulated the final interpretation expressed in this report and that the above diagnosis is based upon my examination of the slides and/or other material indicated in this report. mtc/11/11/2019 Material Received: A: left bone marrow clot B: left bone marrow biopsy (Myeloma) History: 54 year old male with a history of multiple myeloma Gross Description: A. Received in Zinc formalin labeled "left bone marrow clot" is a 2.5 x 2.0 x 0.7 cm aggregate of friable red-brown clotted blood elements. The specimen is entirely submitted in cassettes A1-A2. (tn) B. Received in Zinc formalin labeled "left bone marrow biopsy" is a 1.4 cm in length and 0.3 cm in diameter cylindrical, yellow-urrutia firm piece of tissue. The specimen is submitted in cassette B1 after decalcification. (tn) urrutia/11/10/2019 Microscopic Description: CBC Data: HGB 14.6 (g/dL); RBC 4.11 (m/uL); MCV 103.4 (FL); RDW 15.6 (%); WBC 9.1 (k/uL); PLT 280 (k/uL). Blood Smear Diff (%): Segmented neutrophils 63; lymphocytes 28; monocytes 7; eosinophils 1; basophils 1 Blood Smear Morphology: RBC: Normal WBC: Normal Platelets: Normal Bone Marrow Aspirate/Touch Prep Morphology: Aspirate Adequacy: Adequate Touch Prep Adequacy: Adequate Cellularity: Normal Megakaryocytes: Normal Blasts: Normal Erythroid: Normal Granulocytes: Normal Lymphocytes: Normal Plasma Cells: Normal Bone Marrow Differential Cell Count (%): Blasts: 1 Promyelocytes: 3 Myelocytes: 5 Metamyelocytes: 14 Segs/Bands: 28 Eosinophils: 2 Erythroid: 32 Monocytes: 1 Lymphocytes: 13 Plasma cells: 1 M:E ratio: 1.6 Bone Marrow Core Biopsy: Adequacy: Adequate Length: 1.6 cm Cellularity: 30-40% Megakaryocytes: Normal Hematopoiesis: Resembles aspirate smear Atypical Infiltrates: None Bone Marrow Cell Clot: Adequacy: Adequate Cellularity: 30% Pertinent Findings: Resembles core biopsy Additional Stains: Iron Stain: Not performed Immunohistochemistry: Not performed Chromogenic In Situ Hybridization: Quantitative chromogenic in situ hybridization stains for kappa and lambda on the core section show normal numbers of scattered polyclonal plasma cells (0.5 to 3.5 kappa:lambda ratio by the manual method). The positive and negative controls for immunoglobulin light chain mRNA expression were reviewed and reacted appropriately. Other Special Stains: Not performed Ancillary Studies: Flow Cytometry: Performed, see separate report. Polyclonal plasma cells (0.04%). Cytogenetics: Performed, see separate report Fluorescence In Situ Hybridization: Performed, see separate report Molecular Genetics: Not performed Preliminary Diagnosis: Not performed If immunohistochemical stains and/or in situ hybridization are cited in this report, the performance characteristics were determined by the Department of Pathology and Laboratory Medicine of the [facility] ([employer]) in compliance with CLIA'88 regulations. Some of these tests rely on the use of "analyte specific reagents" and are subject to specific labeling requirements by the FDA. Known positive and negative control tissues demonstrate appropriate staining. Results should be interpreted with caution given the likelihood of false negativity on decalcified specimens. This testing was developed by the Department of Pathology and Laboratory Medicine of the [facility]. It has not been cleared or approved by the FDA. The FDA has determined that such clearance or approval is not necessary. Specimen Performing Organization Address City/State/[facility] Ph one Number [facility] [address] [place] [address] * FLOW CYTOMETRY (11/10/2019 12:41 PM CDT) PATHOLOGY [facility] [email or web address] William Hoyt MD, Director of Flow Cytometry Laboratory Department of Pathology and Laboratory Medicine [address] [place] [address] Surgical Pathology Office: [phone] FLOW CYTOMETRY REPORT NAME: ANNABELLE GUPTA Ban. SURG PATH #: [id number] MR #: [id number] SPECIMEN CLASS: LC BILLING #: [id number] ALT ID #: LOCATION: IR DATE OF PROCEDURE: 11/10/2019 AGE: 54 SEX: M DATE RECEIVED: 11/10/2019 : 1965 TIME RECEIVED: 13:07 PHYSICIAN: NARCISO SANCHEZ DATE OF REPORT: 11/11/2019 COPY TO: DATE OF PRINTIN11/11/2019 Material Received: A: Bone Marrow History: 54 year old male with a history of multiple myeloma ############################## ############################## ############ Final Diagnosis: Bone marrow, flow cytometry: Negative immunophenotypic study Interpretation: Plasma cells comprise 0.04% of total events and have normal antigen expression. There is no immunophenotypic evidence of multiple myeloma or neoplastic plasma cells. Attestation: By this signature, I attest that I have personally formulated the final interpretation expressed in this report and that the above diagnosis is based upon my examination of the slides and/or other material indicated in this report. +++Electronically Signed Out By+++ pmw/11/10/2019 Interpreted by: Ryne Quezada MD 11/11/2019 ############################## ############################## ############ Lab Data: Flow Cytometry - Multiple Myeloma, Minimal Residual Disease Panel Analytic sensitivity of the lower detection limit in this assay is 0.01% Plasma Cell Associated Markers (% Positive Cells): CD38 = 100; CD138 = 100; cyKappa = 55; cyLambda = 41; cyK/cyL ratio = 1.3 Miscellaneous Markers (% Positive Cells): CD19 = 81; CD20 = 5; CD27 = 90; CD28 = 8; CD45 = 70; CD56 = 11; CD81 = 87; CD117 = 3 Cell Viability (%): n/a Number of Cells Analyzed: 1,352,354 Plasma Cells Detected: 0.04 Total Number of Markers: 12 Summary of Marker Combinations: 81/28/138/38/45/27/20; cyKappa/cyLambda/138/117/38/45 /56/19 This test was developed and its performance characteristics determined by the [facility] Flow Cytometry Laboratory. It has not been cleared or approved by the U.S. Food and Drug Administration (FDA). The FDA has determined that such clearance or approval is not necessary. Specimen Performing Organization Address City/State/Zipcode Ph one Number [facility] [address] [place] [address] * BONE MARROW ASP (11/10/2019 12:41 PM CDT) Bone Marrow Asp SEE PATHOLOGY REPORT MAIN LAB Specimen Bone Marrow - Bone Marrow Performing Organization Address [facility] Ph one Number MAIN LAB [address] [place] [address] * BONE MARROW BIOPSY (11/10/2019 12:41 PM CDT) Bone Marrow Bx SEE PATHOLOGY REPORT MAIN LAB Specimen Bone Marrow - Bone Marrow Performing Organization Address City/[facility] Ph one Number [facility] [address] [place] [address] * LEUKEMIA/LYMPHOMA PNL, BONE MARROW (11/10/2019 12:41 PM CDT) Leuk/Lymph SEE PATHOLOGY REPORT MAIN LAB Interpretation Specimen/LLM BONE MARROW [facility] Specimen Bone Marrow - Bone Marrow Performing Organization Address [facility] one Number MAIN LAB [address] [place] [address] * CHROMOSOMES BONE MARROW (11/10/2019 12:41 PM CDT) Chromosomes Cytogenetics Report Available [facility] Bone Marrow in Epic Specimen Bone Marrow Narrative Performed At This result has an attachment that is n ot available. Performing Organization Address City/[facility] Ph one Number MAIN LAB [address] [place] [address] * CHROMOSOMES FISH DNA PROBE (11/10/2019 12:41 PM CDT) Chromosomes Cytogenetics Report Available [facility] Fish DNA Probe in Epic Specimen Bone Marrow Narrative Performed At This result has an attachment that is n ot available. Performing Organization Address City/[facility] Ph one Number MAIN LAB [address] [place] [address] * IR BONE MARROW BIOPSY (11/10/2019 12:31 PM CDT) Specimen Impressions Performed At Successful image guided bone marrow aspiration and co re biopsy, as described RAD RESULTS above. Aaron Chin M.D, the attendi radiologist, was present for the critical and means portions of the proced ure with an advanced practice provider, resident, and/or fellow participating. Overlapping portions were non means and I was immediately available. I interpre t the critical and means portion of this procedure to have been the procedural t maricruz out and needle access. @TT Approved by Kj Villareal M.D. on 2019 1:19 PM By my electronic signature, I attest th at I have personally reviewed the images for this examination and formulated the interpretations and opinions expressed in this report Finalized by Aaron Marina M.D. on 2:13 PM. Dictated by Kj Villareal M.D. on 11/10/2019 1:18 PM. Narrative Performed At FLUOROSCOPIC GUIDED BONE MARROW ASPIRATION AND CORE B IOPSY [facility] RAD RESULTS CLINICAL HISTORY: Multiple myeloma st atus post stem cell transplant RADIOLOGIST: Vicki Smith., Baron Marina M.D. MEDICATIONS:I was personally responsibl e for the administration of moderate sedation services during the procedure performed and I confirm requirements described in CPT section on moderate se dation were followed, including the use of an independent trained observer who had no other duties during the procedure. See nursing log for complete details; the drugs utilized were: Versed and Fentanyl. See nursing documentation for doses provided. TECHNIQUE/FINDINGS: A brief history and physical was obtain ed and appropriate imaging was reviewed. An explanation of the procedure includi ng risks and benefits was provided and informed written consent was then obtai marky. The patient was placed in prone position on the table. The entry site was then prepped and draped in the usual sterile fashion. Limited fluoroscopic imaging of the pelvis was performed to identify the left posterior iliac crest . The patient's skin was marked with ink at the appropriate entry site. Li docaine was then injected in the subcutaneous tissues at this site down to the periosteum. A bone marrow aspiration introducer needle was then a dvanced into the posterior iliac crest. Multiple aspirations were obtained incl uding a 1 mL (no anticoagulation) sent on slide for morphology and a 6 mL heparin ized syringe for flow cytometry and cytogenetics. An additional aspirate of 4 mL was sent for molecular evaluation. A bone marrow core biopsy was then obta ined using a core introducer and needle and submitted in formalin for surgical pathology following touch preparation. Hemostasis was achieved with manual com pression, there is no evidence of post biopsy complication. The patient tole rated the procedure well and left the department in stable condition. Procedure Note Interface, Radiant Results - 11/10/2019 2:16 PM CDT FLUOROSCOPIC GUIDED BONE MARROW ASPIRATION AND CORE BIOPSY CLINICAL HISTORY: Multiple myeloma status post stem cell transplant RADIOLOGIST: Vicki Smith., Baron Marina M.D. MEDICATIONS:I was personally responsible for the administration of moderate sedation services during the procedure performed and I confirm requirements described in CPT section on moderate sedation were followed, including the use of an independent trained observer who had no other duties during the procedure. See nursing log for complete details; the drugs utilized were: Versed and Fentanyl. See nursing documentation for doses provided. TECHNIQUE/FINDINGS: A brief history and physical was obtained and appropriate imaging was reviewed. An explanation of the procedure including risks and benefits was provided and informed written consent was then obtained. The patient was placed in prone position on the table. The entry site was then prepped and draped in the usual sterile fashion. Limited fluoroscopic imaging of the pelvis was performed to identify the left posterior iliac crest. The patient's skin was marked with ink at the appropriate entry site. Lidocaine was then injected in the subcutaneous tissues at this site down to the periosteum. A bone marrow aspiration introducer needle was then advanced into the posterior iliac crest. Multiple aspirations were obtained including a 1 mL (no anticoagulation) sent on slide for morphology and a 6 mL heparinized syringe for flow cytometry and cytogenetics. An additional aspirate of 4 mL was sent for molecular evaluation. A bone marrow core biopsy was then obtained using a core introducer and needle and submitted in formalin for surgical pathology following touch preparation. Hemostasis was achieved with manual compression, there is no evidence of post biopsy complication. The patient tolerated the procedure well and left the department in stable condition. IMPRESSION Successful image guided bone marrow aspiration and core biopsy, as described above. IAaron M.D, the attending radiologist, was present for the critical and means portions of the procedure with an advanced practice provider, resident, and/or fellow participating. Overlapping portions were non means and I was immediately available. I interpret the critical and means portion of this procedure to have been the procedural time out and needle access. @TT Approved by Kj Villareal M.D. on 11/10/2019 1:19 PM By my electronic signature, I attest that I have personally reviewed the images for this examination and formulated the interpretations and opinions expressed in this report Finalized by Aaron Marina M.D. on 11/10/2019 2:13 PM. Dictated by Kj Villareal M.D. on 11/10/2019 1:18 PM. Performing Organization Address City/State/Zipcode Ph one Number [facility] documented in this encounter Visit Diagnoses Diagnosis Stem cells transplant status (HCC) Peripheral stem cells replaced by trans plant Multiple myeloma, remission status unsp ecified (HCC) documented in this encounter Administered Medications Action Date Dose Rate Site Medication Order MAR Action 11/10/2019 12:32 PM CDT 50 mcg fentaNYL citrate PF (SUBLIMAZE) Given injection INTRA-PROCEDURE MED, Starting 11/10/19 at 1232, Until 11/10/19 at 1232 11/10/2019 12:13 PM CDT 1 mg midazolam (VERSED) injection 1 mg Given 1 mg, Intravenous, ONCE, 1 dose, 11/10/19 at 1145 11/10/2019 12:34 PM CDT 2 mg midazolam (VERSED) injection Given INTRA-PROCEDURE MED, Starting 11/10/19 at 1234, Until 11/10/19 at 1234 documented in this encounter
--- OUTSIDE RECORDS SUMMARY | 2020-02-13 10:24 | XMS REPORT | Encounter Summary ---
Author Author [facility] Organization [facility] Address Unknown Phone Unavailable Care Team Providers Care Primer Charger Name Role Phone Lucas Carcamo MD PCP Cindy Carlisle MD [phone] Reason for Visit * Reason Comments BMT Follow-up 180 day (01/19) labs, PET Encounter Details Care Team Description Date Type Department Jessica Fernandez BMT Follow-up (180 day (01/19) labs, PET) 12/24/2019 Telephone The [address] [place] [address] [phone] Social History Date Tobacco Use Types Packs/Day [...] encounter Miscellaneous Notes * Telephone Encounter - Jessica Fernandez - 12/24/2019 1:45 PM CDT 12/28/19 - Faxed orders 12/31/2019 1:12 PM EMMETT Mary Haylee said they mariel labs yesterday and she thinks P ET was done a couple of weeks ago documented in this encounter Plan of Treatment Not on filedocumented as of this encounter Goals Goal Patient Associated Recent Progress Patient-Stat Aut hor Goal Type Problems ed? GOAL General No Natasha Almazan, MARIYA Note: Rest and recover documented as of this encounter Visit Diagnoses Not on filedocumented in this encounter
--- OUTSIDE RECORDS SUMMARY | 2020-02-13 10:24 | XMS REPORT | Encounter Summary ---
Author Author [facility] Organization [facility] Address Unknown Phone Unavailable Care Team Providers Care Automatic Blocker Name Role Phone Lucas Carcamo MD PCP Cindy Carlisle MD [phone] Reason for Visit * Reason Comments Patient Questions Encounter Details Care Team Description Date Type Department Ne Yun RN Patient Questions 12/03/2019 Telephone The [address] [place] [address] [phone] Social History Date Tobacco Use Types Packs/Day [...] encounter Miscellaneous Notes * Telephone Encounter - Ne Yun RN - 12/03/2019 9:58 AM CDT Pt called and asked if he was supposed to start his Bactrim since he finished hi s other antibiotic. Instructed yes he should start his Bactrim. Asked about star ting his Revlimid. Instructed him to call local oncologist for instructions on s tarting. Pt stated Dr. Allen told him to get a colonoscopy. Stated Dr. Thom townsend needed to order that. Instructed per Dr. Allen's notes he has to go to his PCP. Pt stated he uses local urgent care and does not go to a PCP. Per Dr. Naa hanks's note pt was instructed he needed the PCP and that he would order his rountine maintenance tests like his colonoscopy. Pt stated he would find a PCP. documented in this encounter Plan of Treatment Not on filedocumented as of this encounter Goals Goal Patient Associated Recent Progress Patient-Stat Aut hor Goal Type Problems ed? GOAL General No Natasha Almazan RN Note: Rest and recover documented as of this encounter Visit Diagnoses Not on filedocumented in this encounter
--- OUTSIDE RECORDS SUMMARY | 2020-02-13 10:24 | XMS REPORT | Encounter Summary ---
Author Author [facility] Organization [facility] Address Unknown Phone Unavailable Care Team Providers Care Enterprise Application Administrator Name Role Phone Lucas Carcamo MD PCP Cindy Carlisle MD [phone] Reason for Visit * Reason Comments BMT Follow-up 100 day LTFU Encounter Details Care Team Description Date Type Department Jessica Ortega BMT Follow-up (100 day LTFU) 11/24/2019 Documentation The [address] [place] [address] [phone] Social History Date Tobacco Use Types Packs/Day [...] of this encounter Progress Notes * Jessica Ortega - 11/24/2019 11:56 AM CDT documented in this encounter Plan of Treatment Not on filedocumented as of this encounter Goals Goal Patient Associated Recent Progress Patient-Stat Aut hor Goal Type Problems ed? GOAL General No Natasha Almazan RN Note: Rest and recover documented as of this encounter Visit Diagnoses Not on filedocumented in this encounter
--- OUTSIDE RECORDS SUMMARY | 2020-02-13 10:25 | XMS REPORT | Encounter Summary ---
Author Author [facility] Organization [facility] Address Unknown Phone Unavailable Care Team Providers Care Emulsification Operator Name Role Phone Lucas Carcamo MD PCP Cindy Carlisle MD [phone] Reason for Visit * Reason Comments Other No Email address unable to set up MyChart Encounter Details Care Team Description Date Type Department Blanche Carlson RN Other (No Email address unable to set up MyChart) 10/28/2019 Documentation The [facility] [address] [facility] [place] [address] Social History Date Tobacco Use Types Packs/Day [...]
--- OUTSIDE RECORDS SUMMARY | 2020-02-13 10:25 | XMS REPORT | Encounter Summary ---
Author Author [facility] Organization [facility] Address Unknown Phone Unavailable Care Team Providers Care Men'S Custom Hair Piece Consultant Name Role Phone Lucas Carcamo MD PCP Cindy Carlisle MD [phone] Reason for Visit * Reason Comments Appointment Encounter Details Care Team Description Date Type Department Margo Escalona Appointment 09/04/2019 Telephone The [address] [place] [address] [phone] Social History Date Tobacco Use Types Packs/Day [...] Miscellaneous Notes * Telephone Encounter - Jessica Ortega - 11/24/2019 11:28 AM CDT 11/24/2019 11:28 AM Spoke with pt a few times, he originally wanted work up coor dinated with ECHO due to his commute to . When I informed pt that this would push his work up back too far, I contacted the team and they inquired if pt woul d be ok doing a local work up. At that time, pt changed his mind and decided he would do whatever needs to be done for his LTFU. 100 day work up 11/10/19, results 11/27/19 (RADHA) * Telephone Encounter - Margo Escalona - 09/04/2019 10:29 AM RANGE MANAGER This card tape converter operator called this patient to get him scheduled for his 100 day LTFU albina ts. VM left with scheduling number for a return call. E MANAGER documented in this encounter Plan of Treatment Not on filedocumented as of this encounter Goals Goal Patient Associated Recent Progress Patient-Stat Aut hor Goal Type Problems ed? GOAL General No Natasha Almazan, RN Note: Rest and recover documented as of this encounter Visit Diagnoses Not on filedocumented in this encounter
--- OUTSIDE RECORDS SUMMARY | 2020-02-13 10:25 | XMS REPORT | Encounter Summary ---
Author Author [facility] Organization [facility] Address Unknown Phone Unavailable Care Team Providers Care Senior Partner Name Role Phone Lucas Carcamo MD PCP Cindy Carlisle MD [phone] Reason for Visit * Reason Comments BMT Follow-up Encounter Details Care Team Description Date Type Department Kelly Laurent RN BMT Follow-up 09/01/2019 Telephone The [address] [place] [phone] Social History Date Tobacco Use Types [...] Miscellaneous Notes * Telephone Encounter - Kelly Laurent RN - 09/01/2019 12:54 PM MAINTENANCE MACHINIST Patient called wanting to coordinate his senior living follow up with his cardiology appointment. notifed senior living follow up personnel to call patient back and aayush hammond. Instructed patient to give them a couple of days, but that if he has no t heard from them, to please call this nurse back for follow up. TENANCE MACHINIST documented in this encounter Plan of Treatment Not on filedocumented as of this encounter Goals Goal Patient Associated Recent Progress Patient-Stat Aut hor Goal Type Problems ed? GOAL General No Natasha Almazan, RN Note: Rest and recover documented as of this encounter Visit Diagnoses Not on filedocumented in this encounter
--- OUTSIDE RECORDS SUMMARY | 2020-02-13 10:25 | XMS REPORT | Encounter Summary ---
Author Author [facility] Organization [facility] Address Unknown Phone Unavailable Care Team Providers Care Psychiatry Adult Physician Name Role Phone Lucas Carcamo MD PCP Cindy Carlisle MD [phone] Encounter Details Care Team Description Date Type Department Divina Gonsalez RN 10/30/2019 Telephone The [facility] Radiology [address] [address] Social History Date Tobacco Use Types Packs/Day [...] encounter Miscellaneous Notes * Telephone Encounter - Divina Gonsalez RN - 10/30/2019 3:26 PM CDT Called pt to give pre-procedure instructions. Stated he did not want to have th e BMBX on 11/02/19. That his gmat instructor cancelled his appointment and told him he would be rescheduled in November or December. He stated he wants everything done on t he same day. He's also concerned about coming to the hospital during the COVID- 19 infections. IM's Kelly Martin and updated her on the pt statements. She will contact Gina Ortega. Fiona MERAZ documented in this encounter Plan of Treatment Not on filedocumented as of this encounter Goals Goal Patient Associated Recent Progress Patient-Stat Aut hor Goal Type Problems ed? GOAL General No Natasha Almazan, RN Note: Rest and recover documented as of this encounter Visit Diagnoses Not on filedocumented in this encounter
--- OUTSIDE RECORDS SUMMARY | 2020-02-13 10:25 | XMS REPORT | Encounter Summary ---
Author Author [facility] Organization [facility] Address Unknown Phone Unavailable Care Team Providers Care Package Sealer Name Role Phone Lucas Carcamo MD PCP Cindy Carlisle MD [phone] Encounter Details Care Team Description Date Type Department Trevon Mustafa 10/15/2019 Documentation The [facility] [address] [place] [address] Social History Date Tobacco Use Types Packs/Day [...] as of this encounter Progress Notes * Trevon Mustafa - 10/15/2019 12:40 PM CDT [facility] Case Management Note Plan: [facility] [place] Education. Intervention: Pt called this SW and wanted to stay at [facility] for one night. SW pro vided education about staying at [facility] and he wouldn't meet the criteria at this ti me. Pt stated he would seek alternative lodging options if necessary. Trevon Mustafa LMSW, [facility] [phone] documented in this encounter Plan of Treatment Not on filedocumented as of this encounter Goals Goal Patient Associated Recent Progress Patient-Stat Aut hor Goal Type Problems ed? GOAL General No Natasha Almazan, RN Note: Rest and recover documented as of this encounter Visit Diagnoses Not on filedocumented in this encounter
--- OUTSIDE RECORDS SUMMARY | 2020-02-13 10:25 | XMS REPORT | Encounter Summary ---
Author Author [facility] Organization [facility] Address Unknown Phone Unavailable Care Team Providers Care Windmill Mechanic Name Role Phone Lucas Carcamo MD PCP Cindy Carlisle MD [phone] Reason for Referral * Radiology Services (Routine) Referred By Contact Referred To Contact Status Reason Specialty Diagnoses / Procedures Amaya Vela, DRYWALL INSTALLER-SPOTLIGHT OPERATOR [address] [place] [address] [address] [address] No Auth Needed Radiology Diagnoses Stem cells transplant status (HCC) Multiple myeloma, remission status unspecified (HCC) P rocedures IR BONE MARROW BIOPSY Encounter Details Care Team Description Date Type Department Kelly Martin, MARIYA Stem cells transplant status (HCC) (Prim torrie Dx); Multiple myeloma, remission status unspecified (HCC) 10/20/2019 Orders Only The [facility] [address] [phone] Social History Date Tobacco Use Types Packs/Day [...] as of this encounter Plan of Treatment Order Schedule Name Type Priority Associated Diag noses Expected: 11/01/2019, Expires: 1 BONE MARROW ASPIRATION Procedures Routine Stem ce lls transplant PROCEDURE status (HCC) Multiple myeloma, remission status unspecified (HCC) Expected: 11/01/2019, Expires: 1 BIOPSY BONE MARROW Procedures Routine Stem cells transplant PROCEDURE status (HCC) Multiple myeloma, remission status unspecified (HCC) documented as of this encounter Goals Goal Patient Associated Recent Progress Patient-Stat Aut hor Goal Type Problems ed? GOAL General No Natasha Almazan RN Note: Rest and recover documented as of this encounter Results * CHROMOSOMES FISH DNA PROBE (11/10/2019 12:41 PM CDT) Chromosomes Cytogenetics Report Available [facility] Fish DNA Probe in Epic Specimen Bone Marrow Narrative Performed At This result has an attachment that is n ot available. Performing Organization Address City/[facility] Ph one Number MAIN LAB [address] [place] [address] * CHROMOSOMES BONE MARROW (11/10/2019 12:41 PM CDT) Chromosomes Cytogenetics Report Available [facility] Bone Marrow in Epic Specimen Bone Marrow Narrative Performed At This result has an attachment that is n ot available. Performing Organization Address City/[facility] Ph one Number MAIN LAB [address] [place] [address] * LEUKEMIA/LYMPHOMA PNL, BONE MARROW (11/10/2019 12:41 PM CDT) Leuk/Lymph SEE PATHOLOGY REPORT MAIN LAB Interpretation Specimen/LLM BONE MARROW MAIN LAB Specimen Bone Marrow - Bone Marrow Performing Organization Address [facility] Ph one Number MAIN LAB [address] [place] [address] * BONE MARROW BIOPSY (11/10/2019 12:41 PM CDT) Bone Marrow Bx SEE PATHOLOGY REPORT MAIN LAB Specimen Bone Marrow - Bone Marrow Performing Organization Address [facility] one Number MAIN LAB [address] [place] [address] * BONE MARROW ASP (11/10/2019 12:41 PM CDT) Bone Marrow Asp SEE PATHOLOGY REPORT MAIN LAB Specimen Bone Marrow - Bone Marrow Performing Organization Address [facility] one Number MAIN LAB [address] [place] [address] * IR BONE MARROW BIOPSY (11/10/2019 12:31 PM CDT) Specimen Impressions Performed At Successful image guided bone marrow aspiration and co re biopsy, as described [facility] RES[facility] above. I, Aaron Marina M.D, the attendi radiologist, was present for [...] M.D. on 2:13 PM. Dictated by Kj Villaeral M.D. on 11/10/2019 1:18 PM. Narrative Performed [...] evidence of post biopsy complication. The patient bucky rated the procedure well and left the [...]
--- OUTSIDE RECORDS SUMMARY | 2020-02-13 10:26 | XMS REPORT | Continuity of Care Document ---
Author Organization Unknown Address Unknown Phone Unavailable Allergies Active Description Code Type Severity Reaction Onset Reported/Identified Relationship to Patient Clinical Status Yes No Known Drug Allergies [id number] Drug Allergy Unknown N/A 01/22/2011 Medications There is no data. Problems Date Dx Coded Attending Type Code Diagnosis Diagnosed By 06/27/1410 RACH ERWIN Ot C90.00 MULTIPLE MYELOMA NOT HAVING ACHIEVED REM 06/27/1410 RACH ERWIN Ot F17.290 NICOTINE DEPENDENCE, OTHER TOBACCO PRODU 06/27/1410 RACH ERWIN Ot M54.5 LOW BACK PAIN 06/27/1410 RACH ERWIN Ot M89.9 DISORDER OF BONE, UNSPECIFIED 06/27/1410 RACH ERWIN Ot N40.0 BENIGN PROSTATIC HYPERPLASIA WITHOUT LOW 06/27/1419 CHUY BURT DO Ot Z01.812 ENCOUNTER FOR PREPROCEDURAL LABORATORY E 06/27/1419 CHUY BURT DO Ot Z11. 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 5 LOW BACK PAIN 11/26/2018 KANNAN DALY, VADIM Ot M89. 9 DISORDER OF BONE, UNSPECIFIED 11/28/2018 KANNAN DALY, VADIM Ot F17.290 NICOTINE DEPENDENCE, OTHER TOBACCO PRODU 11/28/2018 VADIM BRUNNER MD Ot M54. 5 LOW BACK PAIN 11/28/2018 VADIM BRUNNER MD Ot M89. 9 DISORDER OF BONE, UNSPECIFIED 12/04/2018 VADIM BRUNNER MD Ot F17.290 NICOTINE DEPENDENCE, OTHER TOBACCO PRODU 12/04/2018 VADIM BRUNNER MD Ot M54. 5 LOW BACK PAIN 12/04/2018 VADIM BRUNNER MD Ot M89. 9 DISORDER OF BONE, UNSPECIFIED 12/06/2018 VADIM BRUNNER MD Ot C90. 00 MULTIPLE MYELOMA NOT HAVING ACHIEVED REM 12/10/2018 VADIM BRUNNER MD Ot C90. 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 5 LOW BACK PAIN 12/30/2018 VADIM BRUNNER MD Ot M89. 9 DISORDER OF BONE, UNSPECIFIED 12/30/2018 VADIM BRUNNER MD Ot C90. 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 5 LOW BACK PAIN 01/02/2019 VADIM BRUNNER MD Ot M89. 9 DISORDER OF BONE, UNSPECIFIED 01/02/2019 VADIM BRUNNER MD Ot C90. 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 5 LOW BACK PAIN 01/08/2019 VADIM BRUNNER MD Ot M89. 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 5 LOW BACK PAIN 02/22/2019 VADIM BRUNNER MD Ot M89. 9 DISORDER OF BONE, UNSPECIFIED 02/23/2019 VADIM BRUNNER MD Ot F17.290 NICOTINE DEPENDENCE, OTHER TOBACCO PRODU 02/23/2019 VADIM BRUNNER MD Ot M54. 5 LOW BACK PAIN 02/23/2019 VADIM BRUNNER MD Ot M89. 9 DISORDER OF BONE, UNSPECIFIED 03/09/2019 VADIM BRUNNER MD Ot F17.290 NICOTINE DEPENDENCE, OTHER TOBACCO PRODU 03/09/2019 VADIM BRUNNER MD Ot M54. 5 LOW BACK PAIN 03/09/2019 VADIM BRUNNER MD Ot M89. 9 DISORDER OF BONE, UNSPECIFIED 03/12/2019 VADIM BRUNNER MD Ot F17.290 NICOTINE DEPENDENCE, OTHER TOBACCO PRODU 03/12/2019 VADIM BRUNNER MD Ot M54. 5 LOW BACK PAIN 03/12/2019 VADIM BRUNNER MD Ot M89. 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 5 LOW BACK PAIN 04/08/2019 VADIM BRUNNER MD Ot M89. 9 DISORDER OF BONE, UNSPECIFIED 04/30/2019 VADIM BRUNNER MD Ot C90. 00 MULTIPLE MYELOMA NOT HAVING ACHIEVED REM 04/30/2019 VADIM BRUNNER MD Ot F17.290 NICOTINE DEPENDENCE, OTHER TOBACCO PRODU 04/30/2019 VADIM BRUNNER MD Ot M54. 5 LOW BACK PAIN 04/30/2019 VADIM BRUNNER MD Ot M89. 9 DISORDER OF BONE, UNSPECIFIED 05/25/2019 VADIM BRUNNER MD Ot C90. 00 MULTIPLE MYELOMA NOT HAVING ACHIEVED REM 05/25/2019 VADIM BRUNNER MD Ot F17.290 NICOTINE DEPENDENCE, OTHER TOBACCO PRODU 05/25/2019 VADIM BRUNNER MD Ot M54. 5 LOW BACK PAIN 05/25/2019 VADIM BRUNNER MD Ot M89. 9 DISORDER OF BONE, UNSPECIFIED 05/26/2019 VADIM BRUNNER MD Ot C90. 00 MULTIPLE MYELOMA NOT HAVING ACHIEVED REM 05/26/2019 VADIM BRUNNER MD Ot F17.290 NICOTINE DEPENDENCE, OTHER TOBACCO PRODU 05/26/2019 VADIM BRUNNER MD Ot M54. 5 LOW BACK PAIN 05/26/2019 VADIM BRUNNER MD Ot M89. 9 DISORDER OF BONE, UNSPECIFIED 06/02/2019 VADIM BRUNNER MD Ot C90. 00 MULTIPLE MYELOMA NOT HAVING ACHIEVED REM 06/02/2019 VADIM BRUNNER MD Ot F17.290 NICOTINE DEPENDENCE, OTHER TOBACCO PRODU 06/02/2019 VADIM BRUNNER MD Ot M54. 5 LOW BACK PAIN 06/02/2019 VADIM BRUNNER MD Ot M89. 9 DISORDER OF BONE, UNSPECIFIED 06/04/2019 VADIM BRUNNER MD Ot C90. 00 MULTIPLE MYELOMA NOT HAVING ACHIEVED REM 06/04/2019 VADIM BRUNNER MD Ot F17.290 NICOTINE DEPENDENCE, OTHER TOBACCO PRODU 06/04/2019 VADIM BRUNNER MD Ot M54. 5 LOW BACK PAIN 06/04/2019 VADIM BRUNNER MD Ot M89. 9 DISORDER OF BONE, UNSPECIFIED 06/22/2019 VADIM BRUNNER MD Ot C90. 00 MULTIPLE MYELOMA NOT HAVING ACHIEVED REM 06/22/2019 VADIM BRUNNER MD Ot F17.290 NICOTINE DEPENDENCE, OTHER TOBACCO PRODU 06/22/2019 VADIM BRUNNER MD Ot M54. 5 LOW BACK PAIN 06/22/2019 VADIM BRUNNER MD Ot M89. 9 DISORDER OF BONE, UNSPECIFIED 08/24/2019 VADIM BRUNNER MD Ot C90. 00 MULTIPLE MYELOMA NOT HAVING ACHIEVED REM 08/24/2019 VADIM BRUNNER MD Ot F17.290 NICOTINE DEPENDENCE, OTHER TOBACCO PRODU 08/24/2019 VADIM BRUNNER MD Ot M54. 5 LOW BACK PAIN 08/24/2019 VADIM BRUNNER MD Ot M89. 9 DISORDER OF BONE, UNSPECIFIED 09/18/2019 HERMILO BREEN MD Ot C90.00 MULTIPLE MYELOMA NOT HAVING ACHIEVED REM 09/18/2019 HERMILO BREEN MD Ot F17.290 NICOTINE DEPENDENCE, OTHER TOBACCO PRODU 09/18/2019 HERMILO BREEN MD Ot M54.5 LOW BACK PAIN 09/18/2019 HERMILO BREEN MD Ot M89.9 DISORDER OF BONE, UNSPECIFIED 10/21/2019 HERMILO BREEN MD Ot C90.00 MULTIPLE MYELOMA NOT HAVING ACHIEVED REM 10/21/2019 HERMILO BREEN MD Ot F17.290 NICOTINE DEPENDENCE, OTHER TOBACCO PRODU 10/21/2019 HERMILO BREEN MD Ot M54.5 LOW BACK PAIN 10/21/2019 HERMILO BREEN MD Ot M89.9 DISORDER OF BONE, UNSPECIFIED 11/30/2019 HERMILO BREEN MD Ot C90.00 MULTIPLE MYELOMA NOT HAVING ACHIEVED REM 11/30/2019 HERMILO BREEN MD Ot F17.290 NICOTINE DEPENDENCE, OTHER TOBACCO PRODU 11/30/2019 HERMILO BREEN MD Ot M54.5 LOW BACK PAIN 11/30/2019 HERMILO BREEN MD Ot M89.9 DISORDER OF BONE, UNSPECIFIED 11/30/2019 HERMILO BREEN MD Ot C90.00 MULTIPLE MYELOMA NOT HAVING ACHIEVED REM 11/30/2019 HERMILO BREEN MD Ot F17.290 NICOTINE DEPENDENCE, OTHER TOBACCO PRODU 11/30/2019 HERMILO BREEN MD Ot M54.5 LOW BACK PAIN 11/30/2019 HERMILO BREEN MD Ot M89.9 DISORDER OF BONE, UNSPECIFIED 12/07/2019 HERMILO BREEN MD Ot C90.00 MULTIPLE MYELOMA NOT HAVING ACHIEVED REM 12/07/2019 HERMILO BREEN MD Ot F17.290 NICOTINE DEPENDENCE, OTHER TOBACCO PRODU 12/07/2019 HERMILO BREEN MD Ot M54.5 LOW BACK PAIN 12/07/2019 HERMILO BREEN MD Ot M89.9 DISORDER OF BONE, UNSPECIFIED 12/09/2019 HERMILO BREEN MD Ot C90.00 MULTIPLE MYELOMA NOT HAVING ACHIEVED REM 12/09/2019 HERMILO BREEN MD Ot F17.290 NICOTINE DEPENDENCE, OTHER TOBACCO PRODU 12/09/2019 HERMILO BREEN MD Ot M54.5 LOW BACK PAIN 12/09/2019 HERMILO BREEN MD Ot M89.9 DISORDER OF BONE, UNSPECIFIED 12/09/2019 HERMILO BREEN MD Ot C90.00 MULTIPLE MYELOMA NOT HAVING ACHIEVED REM 12/09/2019 HERMILO BREEN MD Ot N40.0 BENIGN PROSTATIC HYPERPLASIA WITHOUT LOW 12/09/2019 HERMILO BREEN MD Ot Z53.9 PROCEDURE AND TREATMENT NOT CARRIED OUT, 12/10/2019 RACH ERWIN Ot C90.00 MULTIPLE MYELOMA NOT HAVING ACHIEVED REM 12/10/2019 RACH ERWIN Ot F17.290 NICOTINE DEPENDENCE, OTHER TOBACCO PRODU 12/10/2019 RACH ERWIN Ot M54.5 LOW BACK PAIN 12/10/2019 RACH ERWIN Ot M89.9 DISORDER OF BONE, UNSPECIFIED 12/10/2019 RACH ERWIN Ot N40.0 BENIGN PROSTATIC HYPERPLASIA WITHOUT LOW 12/25/2019 MOLLY HYATT GLOST KILN OPERATOR Ot 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 00 MULTIPLE MYELOMA NOT HAVING ACHIEVED REM 12/25/2019 VADIM BRUNNER MD Ot M48.061 SPINAL STENOSIS, LUMBAR REGION WITHOUT N 12/25/2019 VADIM BRUNNER MD Ot M48.8X6 OTHER SPECIFIED SPONDYLOPATHIES, LUMBAR 12/25/2019 HERMILO BREEN MD, Ot C90.00 MULTIPLE MYELOMA NOT HAVING ACHIEVED REM 12/25/2019 HERMILO BREEN MD Ot N40.0 BENIGN PROSTATIC HYPERPLASIA WITHOUT LOW 12/25/2019 HERMILO BREEN MD Ot Z53.9 PROCEDURE AND TREATMENT NOT CARRIED OUT, 12/25/2019 RACH ERWIN Ot C90.00 MULTIPLE MYELOMA NOT HAVING ACHIEVED REM 12/25/2019 RACH ERWIN Ot F17.290 NICOTINE DEPENDENCE, OTHER TOBACCO PRODU 12/25/2019 RACH ERWIN Ot M54.5 LOW BACK PAIN 12/25/2019 RACH ERWIN Ot M89.9 DISORDER OF BONE, UNSPECIFIED 12/25/2019 RACH ERWIN Ot N40.0 BENIGN PROSTATIC HYPERPLASIA WITHOUT LOW 01/01/2020 CHUY BURT DO Ot 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 1 RECTAL POLYP 01/01/2020 CHUY BURT DO Ot K63. 5 POLYP OF COLON 01/01/2020 CHUY BURT DO Ot Z12. 11 ENCOUNTER FOR SCREENING FOR MALIGNANT NE 01/01/2020 CHUY BURT DO Ot Z79. 02 [facility] (CURRENT) [facility] MANA[facility] STAR (CURRENT) USE OF ASPIRIN [facility]/01[facility]2020 [facility] Z[facility].891 [facility] (CURRENT) USE OF OPIATE ANALGE 01/01/2020 [facility] CHUY Rae Ot Z79.899 OTHER MANAGER STAR (CURRENT) DRUG THERAPY 01/01/2020 [facility]. 9 FAMILY HISTORY OF MALIGNANT NEOPLASM, UN 01/01/2020 [facility] Z[facility]. 49 FAMILY HX OF ISCHEM HEART DIS AND OTH DI 01/01[facility]2020 [facility]. 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 01/27/2020 RACH ERWIN Ot C90.00 MULTIPLE MYELOMA NOT HAVING ACHIEVED REM 01/27/2020 RACH ERWIN Ot F17.290 NICOTINE DEPENDENCE, OTHER TOBACCO PRODU 01/27/2020 RACH ERWIN Ot M54.5 LOW BACK PAIN 01/27/2020 RACH ERWIN Ot M89.9 DISORDER OF BONE, UNSPECIFIED 01/27/2020 RACH ERWIN Ot N40.0 BENIGN PROSTATIC HYPERPLASIA WITHOUT LOW 01/27/2020 SIA GIRON MD Ot C90.0 0 MULTIPLE MYELOMA NOT HAVING ACHIEVED REM 01/27/2020 SIA GIRON MD Ot F17.2 90 NICOTINE DEPENDENCE, OTHER TOBACCO PRODU 01/27/2020 SIA GIRON MD Ot M54.5 LOW BACK PAIN 01/27/2020 SIA GIRON MD Ot M89.9 DISORDER OF BONE, UNSPECIFIED 01/27/2020 SIA GIRON MD Ot N40.0 BENIGN PROSTATIC HYPERPLASIA WITHOUT LOW 02/02/2020 SIA GIRON MD Ot C90.0 0 MULTIPLE MYELOMA NOT HAVING ACHIEVED REM 02/02/2020 SIA GIRON MD Ot F17.2 90 NICOTINE DEPENDENCE, OTHER TOBACCO PRODU 02/02/2020 SIA GIRON MD Ot M54.5 LOW BACK PAIN 02/02/2020 SIA GIRON MD, Ot M89.9 DISORDER OF BONE, UNSPECIFIED 02/02/2020 SIA GIRON MD, Ot N40.0 BENIGN PROSTATIC HYPERPLASIA WITHOUT LOW Procedures There is no data. Results Test Result Range Automated blood complete blood count (he mogram) panel - 11/26/18 07:15 Blood leukocytes automated count (number/volume) 21.1 10*3/uL 4.3-11.0 Blood erythrocytes automated count (number/volume) 4.83 10*6/uL 4.35-5.85 Venous blood hemoglobin measurement (mass/volume) 15.6 g/dL 13.3-17.7 Blood hematocrit (volume fraction) 46 % 40-54 Automated erythrocyte mean corpuscular volume 95 [ foz_us] 80-99 Automated erythrocyte mean corpuscular h emoglobin (mass per erythrocyte) 32 pg 25-34 Automated erythrocyte mean corpuscular h emoglobin concentration measurement (mass/volume) 34 g/dL 32-36 Automated erythrocyte distribution width ratio 15. 1 % 10.0- 14.5 Automated blood platelet count (count/volume) 249 10*3/uL 130-400 Automated blood platelet mean volume measurement 11.2 [foz_us] 7.4-10.4 PT panel in platelet poor plasma by coag ulation assay - 11/26/18 07:15 Prothrombin time (PT) in platelet poor plasma by coagu lation assay 12.6 s 12.2-14.7 INR in platelet poor plasma or blood by coagulation as say 0.9 0.8-1.4 Activated partial thromboplastin time (a PTT) in platelet poor plasma bycoagulation assay - 11/26/18 07:15 Activated partial thromboplastin time (a PTT) in platelet poor plasma bycoagulation assay 31 s 24-35 Blood CBC with ordered manual differenti al panel - 01/02/19 08:25 Blood leukocytes automated count (number/volume) 12.1 10*3/uL 4.3-11.0 Blood erythrocytes automated count (number/volume) 4.37 10*6/uL 4.35-5.85 Venous blood hemoglobin measurement (mass/volume) 14.2 g/dL 13.3-17.7 Blood hematocrit (volume fraction) 41 % 40-54 Automated erythrocyte mean corpuscular volume 94 [ foz_us] 80-99 Automated erythrocyte mean corpuscular h emoglobin (mass per erythrocyte) 33 pg 25-34 Automated erythrocyte mean corpuscular h emoglobin concentration measurement (mass/volume) 35 g/dL 32-36 Automated erythrocyte distribution width ratio 14. 8 % 10.0- 14.5 Automated blood platelet count (count/volume) 216 10*3/uL 130-400 Automated blood platelet mean volume measurement 11.1 [foz_us] 7.4-10.4 Automated blood neutrophils/100 leukocytes 73 % 42-75 Automated blood lymphocytes/100 leukocytes 18 % 12-44 Blood monocytes/100 leukocytes 4 % NRG Automated blood eosinophils/100 leukocytes 2 % 0-10 Automated blood basophils/100 leukocytes 0 % 0-10 Blood neutrophils automated count (number/volume) 8.8 10*3 1.8-7.8 Blood lymphocytes automated count (number/volume) 2.1 10*3 1.0-4.0 Blood monocytes automated count (number/volume) 1. 0 10*3 0.0-1.0 Automated eosinophil count 0.2 10*3/uL 0 .0-0.3 Automated blood basophil count (count/volume) 0.0 10*3/uL 0.0-0.1 Manual blood segmented neutrophils/100 leukocytes 75 % NRG Blood band neutrophils/100 leukocytes 0 % NRG Manual blood lymphocytes/100 leukocytes 20 % NRG Manual eosinophils/100 leukocytes in nose 1 % NRG Manual blood basophils/100 leukocytes 0 % NRG Blood erythrocyte morphology finding identification NORMAL NRG Automated reticulocyte percentage - 02/13 08:25 Blood reticulocytes count (number/volume) 26 10*9/ L 24-90 Blood reticulocytes/100 erythrocytes 0.60 % 0.50-2.40 PT panel in platelet poor plasma by coag ulation assay - 01/02/19 08:25 Prothrombin time (PT) in platelet poor plasma by coagu lation assay 12.6 s 12.2-14.7 INR in platelet poor plasma or blood by coagulation as say 0.9 0.8-1.4 Activated partial thromboplastin time (a PTT) in platelet poor plasma bycoagulation assay - 01/02/19 08:25 Activated partial thromboplastin time (a PTT) in platelet poor plasma bycoagulation assay 29 s 24-35 Coronavirus SARS-CoV-2 2018 - 0 12:57 Coronavirus Ab [Units/volume] in Serum Negative Negative COVID-19 ([facility]) - 01/15/20 09:29 Encounters ACCT No. Visit Date/Time Discharge Status Pt. Type Provider Facility Loc./Unit Complaint [id number] 01/25/2020 13:00:00 01/25/2020 23:59:5 9 [id number] 01/15/2020 09:20:00 Document Registration [id number] 01/28/2020 13:44:00 23:59:59 CLS Outpatient SIA GIRON MD [facility] ONC [id number] 12/30/2019 15:23:00 14:11:00 DIS Outpatient RACH ERWIN [facility] ONC [id number] 12/29/2019 12:43:00 15:00:00 DIS Outpatient BURT CHUY MCGOWAN [facility] ENDO SCREENING [id number] 12/25/2019 07:57:00 14:20:00 DIS Outpatient BURT CHUY MCGOWAN [facility] PREOP COLONOSCOPY [id number] 12/08/2019 07:55:00 23:59:59 CLS Outpatient HERMILO BREEN MD [facility] RAD MULTIPLE MYELOMA [id number] 11/30/2019 11:00:00 00:01:00 DIS Outpatient HERMILO BREEN MD [facility] ONC [id number] 08/19/2019 13:26:00 00:01:00 DIS Outpatient VADIM BRUNNER MD [facility] ONC [id number] 05/19/2019 13:32:00 00:01:00 DIS Outpatient VADIM BRUNNER MD [facility] ONC [id number] 02/10/2019 13:27:00 019 00:01:00 DIS Outpatient VADIM BRUNNER MD [facility] ONC [id number] 02/18/2019 07:33:00 23:59:59 CLS Outpatient VADIM BRUNNER MD [facility] RAD MULTIPLE MYELOMA [id number] 01/02/2019 07:39:00 12:20:00 DIS Outpatient VADIM BRUNNER MD [facility] RAD PLASMACYTOMA [id number] 12/30/2018 09:03:00 23:59:59 CLS Outpatient VADIM BRUNNER MD [facility] RAD PLASMACYTOMA [id number] 12/04/2018 11:59:00 23:59:59 CLS Outpatient VADIM BRUNNER MD [facility] RAD MULTIPLE MYELOMA [id number] 11/26/2018 06:59:00 12:15:00 DIS Outpatient VADIM BRUNNER MD [facility] RAD MASS OF SPINE [id number] 11/17/2018 08:04:00 23:59:59 CLS Outpatient MOLLY HYATT APRN [facility] RAD RADICULOPATHY, LUMBAR R EGION, LOW BACK PAIN [id number] 03/23/2014 08:00:00 014 23:59:59 CLS Outpatient
[2020-02-13] MEDS ORDERED: NS IV 1000 ML 1,000 ML IV SCH (10:45)
[2020-02-13] MEDS ORDERED: HYOSCYAMINE 0.125 MG (LEVSIN) TAB PO ONE (10:45)
[2020-02-13] MEDS ORDERED: ONDANSETRON 4 MG/2 ML (SDV) Z0FRAN IVP ONE (10:45)
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
[2020-02-13 10:51] LABS: BASOPHILS % (AUTO) 0 % (0-10); EOSINOPHILS # (AUTO) 0.9 10^3/uL (0.0-0.3); EOSINOPHILS % (AUTO) 11 % (0-10); HEMATOCRIT 46 % (40-54); HEMOGLOBIN 15.9 G/DL (13.3-17.7); LYMPHOCYTES # (AUTO) 1.5 X 10^3 (1.0-4.0); LYMPHOCYTES % (AUTO) 19 % (12-44); MEAN CORPUSCULAR HEMOGLOBIN 33 PG (25-34); MEAN CORPUSCULAR HGB CONC 35 G/DL (32-36); MEAN CORPUSCULAR VOLUME 94 FL (80-99); MEAN PLATELET VOLUME 10.2 FL (7.4-10.4); MONOCYTES # (AUTO) 0.7 X 10^3 (0.0-1.0); MONOCYTES % (AUTO) 9 % (0-12); NEUTROPHILS # (AUTO) 4.7 X 10^3 (1.8-7.8); NEUTROPHILS % (AUTO) 60 % (42-75); PLATELET COUNT 364 10^3/uL (130-400); RED CELL DISTRIBUTION WIDTH 15.9 % (10.0-14.5); WHITE BLOOD COUNT 7.9 10^3/uL (4.3-11.0)
[2020-02-13 10:54] LABS: ALBUMIN 4.3 GM/DL (3.2-4.5)
[2020-02-13 10:55] LABS: POTASSIUM 3.3 MMOL/L (3.6-5.0)
[2020-02-13 10:56] LABS: CALCIUM 9.4 MG/DL (8.5-10.1)
[2020-02-13 10:57] LABS: TOTAL PROTEIN 7.7 GM/DL (6.4-8.2)
[2020-02-13 10:59] LABS: BILIRUBIN,TOTAL 0.4 MG/DL (0.1-1.0)
[2020-02-13 11:01] LABS: CREATININE SERUM 1.3 MG/DL (0.60-1.30)
[2020-02-13] MEDS ORDERED: LOPE-134 PO (11:38)
[2020-02-13] MEDS ORDERED: ONDA4TAB11 PO (11:38)
[2020-02-13 12:05] VITALS: BP 132/80
== END 2020-02-13 12:05 | disposition home or self-care (01) ==
LOC: EDUNIT# 10:17 → ER 10:19
DX: R11.2 Nausea with vomiting, unspecified (principal); R19.7 Diarrhea, unspecified; C90.00 Multiple myeloma not having achieved remission; G89.29 Other chronic pain; M54.9 Dorsalgia, unspecified; Z94.84 Stem cells transplant status; Z79.82 Long term (current) use of aspirin
CPT/HCPCS: 36415; 80053; 85025

== ENCOUNTER 2020-03-18 13:26 | Outpatient (RCR) | payer BC ==
[2020-01-28 14:05] LABS: BASOPHILS # (AUTO) 0.1 10^3/uL (0.0-0.1); BASOPHILS % (AUTO) 1 % (0-10); EOSINOPHILS # (AUTO) 0.5 10^3/uL (0.0-0.3); EOSINOPHILS % (AUTO) 5 % (0-10); HEMATOCRIT 38 % (40-54); HEMOGLOBIN 13.1 G/DL (13.3-17.7); LYMPHOCYTES % (AUTO) 32 % (12-44); MEAN CORPUSCULAR HEMOGLOBIN 34 PG (25-34); MEAN CORPUSCULAR HGB CONC 34 G/DL (32-36); MEAN CORPUSCULAR VOLUME 98 FL (80-99); MEAN PLATELET VOLUME 9.9 FL (7.4-10.4); MONOCYTES % (AUTO) 10 % (0-12); NEUTROPHILS # (AUTO) 4.8 X 10^3 (1.8-7.8); NEUTROPHILS % (AUTO) 52 % (42-75); PLATELET COUNT 313 10^3/uL (130-400); WHITE BLOOD COUNT 9.3 10^3/uL (4.3-11.0)
[2020-01-28 14:20] LABS: ALANINE AMINOTRANSFERASE 20 U/L (0-55); ALBUMIN 4.1 GM/DL (3.2-4.5); ALKALINE PHOSPHATASE 74 U/L (40-136); BILIRUBIN,TOTAL 0.2 MG/DL (0.1-1.0); BUN/CREATININE RATIO 14; CALCIUM 8.8 MG/DL (8.5-10.1); CARBON DIOXIDE 21 MMOL/L (21-32); CHLORIDE 109 MMOL/L (98-107); CREATININE SERUM 0.84 MG/DL (0.60-1.30); GFR ESTIMATED > 60; GLUCOSE 91 MG/DL (70-105); MAGNESIUM 2.1 MG/DL (1.6-2.4); SODIUM 140 MMOL/L (135-145); TOTAL PROTEIN 6.5 GM/DL (6.4-8.2)
[2020-02-25 14:06] LABS: HEMATOCRIT 44 % (40-54); HEMOGLOBIN 14.8 G/DL (13.3-17.7); MEAN CORPUSCULAR HEMOGLOBIN 33 PG (25-34); MEAN CORPUSCULAR HGB CONC 34 G/DL (32-36); MEAN CORPUSCULAR VOLUME 95 FL (80-99); MEAN PLATELET VOLUME 10.1 FL (7.4-10.4); PLATELET COUNT 254 10^3/uL (130-400); WHITE BLOOD COUNT 12.9 10^3/uL (4.3-11.0)
[2020-02-25 14:26] LABS: ALANINE AMINOTRANSFERASE 32 U/L (0-55); ALBUMIN 4.3 GM/DL (3.2-4.5); ALKALINE PHOSPHATASE 97 U/L (40-136); BILIRUBIN,TOTAL 0.3 MG/DL (0.1-1.0); BUN/CREATININE RATIO 16; CALCIUM 9.2 MG/DL (8.5-10.1); CARBON DIOXIDE 20 MMOL/L (21-32); CHLORIDE 109 MMOL/L (98-107); GFR ESTIMATED > 60; GLUCOSE 104 MG/DL (70-105); MAGNESIUM 2.3 MG/DL (1.6-2.4); POTASSIUM 4.3 MMOL/L (3.6-5.0); SODIUM 138 MMOL/L (135-145); TOTAL PROTEIN 7.5 GM/DL (6.4-8.2)
[~2020-03-18 13:26] MED LIST changes: +LOPE-134 PO; +ONDA4TAB11 PO
[2020-03-18 13:46] LABS: BASOPHILS # (AUTO) 0.1 10^3/uL (0.0-0.1); BASOPHILS % (AUTO) 1 % (0-10); EOSINOPHILS # (AUTO) 0.5 10^3/uL (0.0-0.3); EOSINOPHILS % (AUTO) 6 % (0-10); HEMATOCRIT 42 % (40-54); HEMOGLOBIN 14.5 G/DL (13.3-17.7); LYMPHOCYTES # (AUTO) 3.2 X 10^3 (1.0-4.0); LYMPHOCYTES % (AUTO) 37 % (12-44); MEAN CORPUSCULAR HEMOGLOBIN 33 PG (25-34); MEAN CORPUSCULAR HGB CONC 34 G/DL (32-36); MEAN CORPUSCULAR VOLUME 96 FL (80-99); MONOCYTES # (AUTO) 0.8 X 10^3 (0.0-1.0); MONOCYTES % (AUTO) 9 % (0-12); NEUTROPHILS % (AUTO) 47 % (42-75); PLATELET COUNT 273 10^3/uL (130-400); WHITE BLOOD COUNT 8.5 10^3/uL (4.3-11.0)
[2020-03-18 14:03] LABS: ALANINE AMINOTRANSFERASE 19 U/L (0-55); ALBUMIN 4.2 GM/DL (3.2-4.5); ALKALINE PHOSPHATASE 87 U/L (40-136); BILIRUBIN,TOTAL 0.3 MG/DL (0.1-1.0); BUN/CREATININE RATIO 13; CARBON DIOXIDE 22 MMOL/L (21-32); CHLORIDE 107 MMOL/L (98-107); CREATININE SERUM 0.99 MG/DL (0.60-1.30); GFR ESTIMATED > 60; GLUCOSE 93 MG/DL (70-105); POTASSIUM 3.8 MMOL/L (3.6-5.0); SODIUM 136 MMOL/L (135-145); TOTAL PROTEIN 7.3 GM/DL (6.4-8.2)
== END 2020-04-15 08:38 | disposition home or self-care (01) ==
LOC: ONC 13:26
PROVIDERS: ATTEND Internal Medicine Hematology & Oncology
DX: C90.00 Multiple myeloma not having achieved remission (principal); M54.5 Low back pain; M89.9 Disorder of bone, unspecified; N40.0 Benign prostatic hyperplasia without lower urinary tract symptoms; F17.290 Nicotine dependence, other tobacco product, uncomplicated; Z92.3 Personal history of irradiation; Z98.890 Other specified postprocedural states; Z79.899 Other long term (current) drug therapy
CPT/HCPCS: 80053; 82232; 82784 ×3; 83735; 83883; 85025; G0463; 99213

== ENCOUNTER 2020-07-12 13:42 | Outpatient (RCR) | payer BC ==
[2020-05-16 13:34] LABS: BASOPHILS # (AUTO) 0.1 10^3/uL (0.0-0.1); BASOPHILS % (AUTO) 1 % (0-10); MEAN CORPUSCULAR VOLUME 94 fL (80-99)
[2020-05-16 13:36] LABS: EOSINOPHILS # (AUTO) 1.5 10^3/uL (0.0-0.3); EOSINOPHILS % (AUTO) 16 % (0-10); HEMATOCRIT 44 % (40-54); HEMOGLOBIN 14.7 g/dL (13.3-17.7); LYMPHOCYTES # (AUTO) 3.7 10^3/uL (1.0-4.0); LYMPHOCYTES % (AUTO) 38 % (12-44); MEAN CORPUSCULAR HEMOGLOBIN 32 pg (25-34); MEAN CORPUSCULAR HGB CONC 34 g/dL (32-36); MEAN PLATELET VOLUME 10.3 fL (9.0-12.2); MONOCYTES # (AUTO) 0.7 10^3/uL (0.0-1.0); MONOCYTES % (AUTO) 7 % (0-12); NEUTROPHILS # (AUTO) 3.8 10^3/uL (1.8-7.8); NEUTROPHILS % (AUTO) 39 % (42-75); PLATELET COUNT 251 10^3/uL (130-400); WHITE BLOOD COUNT 9.8 10^3/uL (4.3-11.0)
[2020-05-16 13:51] LABS: ALANINE AMINOTRANSFERASE 19 U/L (0-55); ALBUMIN 4.2 GM/DL (3.2-4.5); ALKALINE PHOSPHATASE 87 U/L (40-136); BILIRUBIN,TOTAL 0.4 MG/DL (0.1-1.0); BUN/CREATININE RATIO 15; CALCIUM 9.2 MG/DL (8.5-10.1); CARBON DIOXIDE 22 MMOL/L (21-32); CHLORIDE 107 MMOL/L (98-107); CREATININE SERUM 0.91 MG/DL (0.60-1.30); GFR ESTIMATED > 60; GLUCOSE 79 MG/DL (70-105); POTASSIUM 3.9 MMOL/L (3.6-5.0); SODIUM 139 MMOL/L (135-145); TOTAL PROTEIN 7.3 GM/DL (6.4-8.2)
[2020-06-13 15:17] LABS: HEMATOCRIT 42 % (40-54); MEAN CORPUSCULAR HEMOGLOBIN 32 PG (25-34); MEAN CORPUSCULAR HGB CONC 34 G/DL (32-36); MEAN CORPUSCULAR VOLUME 95 FL (80-99); MEAN PLATELET VOLUME 9.8 FL (7.4-10.4); PLATELET COUNT 283 10^3/uL (130-400); WHITE BLOOD COUNT 8.7 10^3/uL (4.3-11.0)
[2020-06-13 15:18] LABS: BASOPHILS # (AUTO) 0.1 10^3/uL (0.0-0.1); BASOPHILS % (AUTO) 1 % (0-10); EOSINOPHILS # (AUTO) 0.3 10^3/uL (0.0-0.3); EOSINOPHILS % (AUTO) 3 % (0-10); LYMPHOCYTES # (AUTO) 3.2 X 10^3 (1.0-4.0); LYMPHOCYTES % (AUTO) 36 % (12-44); MONOCYTES # (AUTO) 0.7 X 10^3 (0.0-1.0); MONOCYTES % (AUTO) 8 % (0-12); NEUTROPHILS # (AUTO) 4.5 X 10^3 (1.8-7.8); NEUTROPHILS % (AUTO) 52 % (42-75)
[2020-06-13 15:43] LABS: ALANINE AMINOTRANSFERASE 23 U/L (0-55); ALBUMIN 4.2 GM/DL (3.2-4.5); ALKALINE PHOSPHATASE 80 U/L (40-136); BILIRUBIN,TOTAL 0.3 MG/DL (0.1-1.0); BUN/CREATININE RATIO 13; CALCIUM 8.8 MG/DL (8.5-10.1); CARBON DIOXIDE 19 MMOL/L (21-32); CHLORIDE 107 MMOL/L (98-107); CREATININE SERUM 0.86 MG/DL (0.60-1.30); GFR ESTIMATED > 60; GLUCOSE 91 MG/DL (70-105); POTASSIUM 3.9 MMOL/L (3.6-5.0); SODIUM 138 MMOL/L (135-145); TOTAL PROTEIN 7.1 GM/DL (6.4-8.2)
[~2020-07-12 13:42] MED LIST changes: +FAMO-119 PO; +ONDA4TAB11 SL; +OXC5T PO; -OXYC5TAB96 PO
[2020-07-12 13:57] LABS: BASOPHILS # (AUTO) 0.1 10^3/uL (0.0-0.1); BASOPHILS % (AUTO) 1 % (0-10); EOSINOPHILS # (AUTO) 0.3 10^3/uL (0.0-0.3); EOSINOPHILS % (AUTO) 4 % (0-10); HEMATOCRIT 44 % (40-54); HEMOGLOBIN 14.4 g/dL (13.3-17.7); LYMPHOCYTES # (AUTO) 3.2 10^3/uL (1.0-4.0); LYMPHOCYTES % (AUTO) 35 % (12-44); MEAN CORPUSCULAR HEMOGLOBIN 33 pg (25-34); MEAN CORPUSCULAR HGB CONC 33 g/dL (32-36); MEAN CORPUSCULAR VOLUME 99 fL (80-99); MEAN PLATELET VOLUME 9.9 fL (9.0-12.2); MONOCYTES # (AUTO) 0.8 10^3/uL (0.0-1.0); MONOCYTES % (AUTO) 8 % (0-12); NEUTROPHILS # (AUTO) 4.8 10^3/uL (1.8-7.8); NEUTROPHILS % (AUTO) 52 % (42-75); PLATELET COUNT 292 10^3/uL (130-400); WHITE BLOOD COUNT 9.3 10^3/uL (4.3-11.0)
[2020-07-12 14:20] LABS: ALANINE AMINOTRANSFERASE 20 U/L (0-55); ALBUMIN 4.4 GM/DL (3.2-4.5); ALKALINE PHOSPHATASE 78 U/L (40-136); BILIRUBIN,TOTAL 0.3 MG/DL (0.1-1.0); BUN/CREATININE RATIO 16; CARBON DIOXIDE 21 MMOL/L (21-32); CHLORIDE 106 MMOL/L (98-107); CREATININE SERUM 0.99 MG/DL (0.60-1.30); GFR ESTIMATED > 60; GLUCOSE 92 MG/DL (70-105); MAGNESIUM 2.2 MG/DL (1.6-2.4); SODIUM 138 MMOL/L (135-145); TOTAL PROTEIN 7.6 GM/DL (6.4-8.2)
== END 2020-08-03 11:33 | disposition home or self-care (01) ==
LOC: ONC 13:42
PROVIDERS: ATTEND Internal Medicine Hematology & Oncology
DX: C90.00 Multiple myeloma not having achieved remission (principal); Z92.3 Personal history of irradiation; Z94.81 Bone marrow transplant status
CPT/HCPCS: 80053; 82232; 82784 ×3; 83883; 85025; G0463; 83735; 84155; 84165; 99213

== ENCOUNTER 2020-07-28 08:34 | Day surgery (SDC) | payer BC ==
[~2020-07-28] VITALS: Ht 170 cm; Wt 81.4 kg
[2020-07-28] VITALS (11 sets, daily range): BP systolic 94–166; BP diastolic 62–87
[2020-07-28] MEDS ORDERED: NS IV 1000 ML 1,000 ML IV STA (09:07)
[2020-07-28] MEDS ORDERED: fentaNYL INJECTION 100 MCG/2 ML AMP IVP ONE (09:15)
[2020-07-28] MEDS ORDERED: MIDAZOLAM 2 MG/2 ML (VERSED) VIAL IVP ONE (09:15)
[2020-07-28] MEDS ORDERED: LIDOCAINE 1% INJ 20 ML 20 ML VIAL INJ ONE (09:15)
[2020-07-28 09:22] LABS: ABSOLUTE RETIC # 37 10e9/uL (24-90); BASOPHILS # (AUTO) 0.2 10^3/uL (0.0-0.1); BASOPHILS % (AUTO) 2 % (0-10); EOSINOPHILS # (AUTO) 0.6 10^3/uL (0.0-0.3); EOSINOPHILS % (AUTO) 7 % (0-10); HEMATOCRIT 43 % (40-54); HEMOGLOBIN 14.6 g/dL (13.3-17.7); LYMPHOCYTES # (AUTO) 3.2 10^3/uL (1.0-4.0); LYMPHOCYTES % (AUTO) 35 % (12-44); MEAN CORPUSCULAR HEMOGLOBIN 33 pg (25-34); MEAN CORPUSCULAR HGB CONC 34 g/dL (32-36); MEAN CORPUSCULAR VOLUME 96 fL (80-99); MEAN PLATELET VOLUME 10.5 fL (9.0-12.2); MONOCYTES # (AUTO) 0.9 10^3/uL (0.0-1.0); MONOCYTES % (AUTO) 10 % (0-12); NEUTROPHILS # (AUTO) 4.2 10^3/uL (1.8-7.8); NEUTROPHILS % (AUTO) 46 % (42-75); PLATELET COUNT 259 10^3/uL (130-400); RETICULOCYTE % 0.83 % (0.50-2.40); WHITE BLOOD COUNT 9.1 10^3/uL (4.3-11.0)
[2020-07-28 09:30] LABS: PROTHROMBIN TIME PATIENT 13.1 SEC (12.2-14.7)
[2020-07-28 09:49] LABS: BAND NEUTROPHILS 0 %; BASOPHILS % (MANUAL) 0 %; EOSINOPHILS % (MANUAL) 3 %; LYMPHOCYTES % (MANUAL) 32 %; MONOCYTES % (MANUAL) 2 %; NEUTROPHILS % (MANUAL) 50 %; RBC MORPH NORMAL; REACTIVE LYMPHOCYTES 13 %
[2020-07-28] MEDS ORDERED: HYDROcodone/APAP 5 MG/325 MG (LORTAB) TAB PO PRN (10:58)
--- NOTE | 2020-07-28 11:03 | Pre-Op Note & Conscious Sedat ---
Pre-Operative Progress Note H&P Reviewed The H&P was reviewed, patient examined and no changes noted. Date H&P Reviewed: Jul 28, 2020 Time H&P Reviewed: 09:00 Pre-Op Diagnosis: Multiple myeloma Conscious Sedation Pre-Proced Time 09:00 ASA Score 2 For ASA 3 and 4: Consider anesthesia and medical clearance. Also, for patients with a history of failed moderate sedation consider anesthesia. Airway Lungs Heart ASA score ASA 1: a normal healthy patient ASA 2: a patient with a mild systemic disease (mid diabetes, controlled hypertension, obesity ASA 3: a patient with a severe systemic disease that limits activity (angina, COPD, prior Myocardial infarction) ASA 4: a patient with an incapacitating disease that is a constant threat to life (CHF, renal failure) ASA 5: a moribund patient not expected to survive 24 hrs. (ruptured aneurysm) ASA 6: a declared brain- patient whose organs are being harvested. For emergent operations, add the letter E after the classification Mallampati Classification Grade 2 Sedation Plan Analgesia, Amnesia, Plan communicated to team members, Discussed options with makayla gautam/fam, Discussed risks with patient/fam The patient is an appropriate candidate to undergo the planned procedure, sedation, and anesthesia. The patient immediately re-assessed prior to indication. DOMINICK TOBIAS MD Jul 28, 2020 11:03
--- NOTE | 2020-07-28 11:10 | Diagnostic Imaging Report ---
Indication: Multiple myeloma. Patient is brought to CT suite placed on the table in the prone position. Axial imaging through the pelvis was performed to evaluate appropriate entry site. Skin of the low back was prepped and draped in usual sterile fashion. Procedure was performed utilizing conscious sedation with radiology nursing and constant patient monitoring. Patient was given total 100 micrograms of fentanyl intravenously and 1 mg of Versed intravenously. Total procedure time was 9 minutes. Small amount of Lidocaine was utilized for local anesthesia. Bone marrow needle was advanced placed with its tip along the posterior cortex of the right iliac bone. Bone marrow drill was then utilized to advance the needle beyond the cortex into the marrow. 2 bone marrow aspirates were obtained. The drill was then reattached to the needle and a core biopsy was performed. Needle was removed and hemostasis was obtained. Patient tolerated procedure well and left the Department in stable condition. IMPRESSION: Successful CT-guided bone marrow aspiration and core biopsy, utilizing conscious sedation. Dictated by: Dictated on workstation # [id number]
== END 2020-07-28 13:00 ==
LOC: RAD 08:34
PROVIDERS: ATTEND Internal Medicine Hematology & Oncology
DX: C90.00 Multiple myeloma not having achieved remission (principal)
CPT/HCPCS: 36415; 38222; 77012; 85007; 85027; 85045; 85610; 85730; 88237; 88264; 99156

== ENCOUNTER → 2020-08-02 | Outpatient (CLI) | payer BC ==
--- NOTE | 2020-08-03 09:21 | Diagnostic Imaging Report ---
INDICATION: Multiple myeloma. Study is performed for restaging. TECHNIQUE: Serum blood glucose level at the time of injection is 97 mg/dL. Patient was administered 14.8 mCi F-18 FDG intravenously in the left antecubital location and PET imaging was performed from the top of the skull to mid thighs. Noncontrast CT was also performed for attenuation correction and anatomic correlation. COMPARISON: Correlation is made with prior PET scan from 12/08/2019. FINDINGS: Symmetric activity throughout the brain is noted. Physiologic activity within the soft tissues of the neck is noted. No mediastinal or hilar hypermetabolism is identified. No definite pulmonary parenchymal hypermetabolism is identified. There is physiologic activity throughout the GI AND tracts of the abdomen and pelvis. No suspicious hypermetabolism is seen. Activity within the L4 lesion continues to decrease and is now barely visible. No new foci are identified. IMPRESSION: Essentially unremarkable PET/CT study apart from very minimal residual activity within the L4 vertebral body lesion. No new focus of hypermetabolism is identified. Dictated by: Dictated on workstation # [id number]
== END ==
LOC: RAD 10:34
PROVIDERS: ATTEND Internal Medicine Hematology & Oncology
DX: C90.00 Multiple myeloma not having achieved remission (principal)
CPT/HCPCS: 78815; A9552

== ENCOUNTER 2020-10-04 14:49 | Outpatient (RCR) | payer BC ==
[2020-08-09 13:51] LABS: BASOPHILS # (AUTO) 0.1 10^3/uL (0.0-0.1); BASOPHILS % (AUTO) 1 % (0-10); EOSINOPHILS # (AUTO) 0.2 10^3/uL (0.0-0.3); EOSINOPHILS % (AUTO) 3 % (0-10); HEMATOCRIT 43 % (40-54); HEMOGLOBIN 14.5 g/dL (13.3-17.7); LYMPHOCYTES # (AUTO) 3.1 10^3/uL (1.0-4.0); LYMPHOCYTES % (AUTO) 35 % (12-44); MEAN CORPUSCULAR HEMOGLOBIN 34 pg (25-34); MEAN CORPUSCULAR HGB CONC 34 g/dL (32-36); MEAN CORPUSCULAR VOLUME 99 fL (80-99); MEAN PLATELET VOLUME 9.9 fL (9.0-12.2); MONOCYTES # (AUTO) 0.7 10^3/uL (0.0-1.0); MONOCYTES % (AUTO) 8 % (0-12); NEUTROPHILS # (AUTO) 4.7 10^3/uL (1.8-7.8); NEUTROPHILS % (AUTO) 53 % (42-75); PLATELET COUNT 257 10^3/uL (130-400); WHITE BLOOD COUNT 8.9 10^3/uL (4.3-11.0)
[2020-08-09 14:08] LABS: ALANINE AMINOTRANSFERASE 20 U/L (0-55); ALBUMIN 4.2 GM/DL (3.2-4.5); ALKALINE PHOSPHATASE 78 U/L (40-136); BILIRUBIN,TOTAL 0.2 MG/DL (0.1-1.0); BUN/CREATININE RATIO 14; CALCIUM 9.2 MG/DL (8.5-10.1); CARBON DIOXIDE 24 MMOL/L (21-32); CHLORIDE 106 MMOL/L (98-107); CREATININE SERUM 0.87 MG/DL (0.60-1.30); GFR ESTIMATED > 60; GLUCOSE 91 MG/DL (70-105); MAGNESIUM 2.1 MG/DL (1.6-2.4); POTASSIUM 4.1 MMOL/L (3.6-5.0); SODIUM 138 MMOL/L (135-145); TOTAL PROTEIN 7.3 GM/DL (6.4-8.2)
[2020-09-06 15:00] LABS: BASOPHILS # (AUTO) 0.1 10^3/uL (0.0-0.1); BASOPHILS % (AUTO) 1 % (0-10); EOSINOPHILS # (AUTO) 0.6 10^3/uL (0.0-0.3); EOSINOPHILS % (AUTO) 6 % (0-10); HEMATOCRIT 45 % (40-54); HEMOGLOBIN 15.1 g/dL (13.3-17.7); LYMPHOCYTES # (AUTO) 3.6 10^3/uL (1.0-4.0); LYMPHOCYTES % (AUTO) 37 % (12-44); MEAN CORPUSCULAR HEMOGLOBIN 33 pg (25-34); MEAN CORPUSCULAR HGB CONC 34 g/dL (32-36); MEAN CORPUSCULAR VOLUME 97 fL (80-99); MONOCYTES # (AUTO) 0.7 10^3/uL (0.0-1.0); MONOCYTES % (AUTO) 7 % (0-12); NEUTROPHILS # (AUTO) 4.8 10^3/uL (1.8-7.8); NEUTROPHILS % (AUTO) 48 % (42-75); PLATELET COUNT 306 10^3/uL (130-400); WHITE BLOOD COUNT 9.9 10^3/uL (4.3-11.0)
[2020-09-06 15:20] LABS: ALANINE AMINOTRANSFERASE 21 U/L (0-55); ALBUMIN 4.1 GM/DL (3.2-4.5); ALKALINE PHOSPHATASE 95 U/L (40-136); BILIRUBIN,TOTAL 0.3 MG/DL (0.1-1.0); BUN/CREATININE RATIO 17; CALCIUM 9.2 MG/DL (8.5-10.1); CARBON DIOXIDE 22 MMOL/L (21-32); CHLORIDE 106 MMOL/L (98-107); CREATININE SERUM 0.84 MG/DL (0.60-1.30); GFR ESTIMATED > 60; GLUCOSE 96 MG/DL (70-105); MAGNESIUM 1.9 MG/DL (1.6-2.4); SODIUM 137 MMOL/L (135-145); TOTAL PROTEIN 7.6 GM/DL (6.4-8.2)
[2020-10-04 15:01] LABS: BASOPHILS # (AUTO) 0.1 10^3/uL (0.0-0.1); BASOPHILS % (AUTO) 1 % (0-10); EOSINOPHILS # (AUTO) 0.3 10^3/uL (0.0-0.3); EOSINOPHILS % (AUTO) 3 % (0-10); HEMATOCRIT 43 % (40-54); HEMOGLOBIN 14.4 g/dL (13.3-17.7); LYMPHOCYTES # (AUTO) 3.1 X 10^3 (1.0-4.0); LYMPHOCYTES % (AUTO) 34 % (12-44); MEAN CORPUSCULAR HEMOGLOBIN 33 pg (25-34); MEAN CORPUSCULAR HGB CONC 34 g/dL (32-36); MEAN CORPUSCULAR VOLUME 98 fL (80-99); MEAN PLATELET VOLUME 9.5 fL (9.0-12.2); MONOCYTES # (AUTO) 0.6 X 10^3 (0.0-1.0); MONOCYTES % (AUTO) 7 % (0-12); NEUTROPHILS # (AUTO) 5.1 X 10^3 (1.8-7.8); NEUTROPHILS % (AUTO) 55 % (42-75); PLATELET COUNT 363 10^3/uL (130-400); WHITE BLOOD COUNT 9.2 10^3/uL (4.3-11.0)
[2020-10-04 15:26] LABS: ALANINE AMINOTRANSFERASE 30 U/L (0-55); ALBUMIN 4.2 GM/DL (3.2-4.5); ALKALINE PHOSPHATASE 101 U/L (40-136); BILIRUBIN,TOTAL 0.3 MG/DL (0.1-1.0); BUN/CREATININE RATIO 11; CALCIUM 9.2 MG/DL (8.5-10.1); CARBON DIOXIDE 18 MMOL/L (21-32); CHLORIDE 107 MMOL/L (98-107); CREATININE SERUM 1.03 MG/DL (0.60-1.30); GFR ESTIMATED > 60; GLUCOSE 111 MG/DL (70-105); MAGNESIUM 1.9 MG/DL (1.6-2.4); POTASSIUM 4.1 MMOL/L (3.6-5.0); SODIUM 137 MMOL/L (135-145); TOTAL PROTEIN 7.5 GM/DL (6.4-8.2)
[2020-11-08 14:30] LABS: BASOPHILS # (AUTO) 0.1 10^3/uL (0.0-0.1); BASOPHILS % (AUTO) 1 % (0-10); EOSINOPHILS # (AUTO) 0.5 10^3/uL (0.0-0.3); EOSINOPHILS % (AUTO) 7 % (0-10); HEMATOCRIT 40 % (40-54); HEMOGLOBIN 13.3 g/dL (13.3-17.7); LYMPHOCYTES # (AUTO) 2.5 10^3/uL (1.0-4.0); LYMPHOCYTES % (AUTO) 32 % (12-44); MEAN CORPUSCULAR HEMOGLOBIN 34 pg (25-34); MEAN CORPUSCULAR HGB CONC 34 g/dL (32-36); MEAN CORPUSCULAR VOLUME 100 fL (80-99); MEAN PLATELET VOLUME 9.9 fL (9.0-12.2); MONOCYTES # (AUTO) 0.6 10^3/uL (0.0-1.0); MONOCYTES % (AUTO) 8 % (0-12); NEUTROPHILS # (AUTO) 4.2 10^3/uL (1.8-7.8); NEUTROPHILS % (AUTO) 52 % (42-75); PLATELET COUNT 264 10^3/uL (130-400); WHITE BLOOD COUNT 7.9 10^3/uL (4.3-11.0)
[2020-11-08 14:56] LABS: ALANINE AMINOTRANSFERASE 19 U/L (0-55); ALKALINE PHOSPHATASE 96 U/L (40-136); BILIRUBIN,TOTAL 0.3 MG/DL (0.1-1.0); BUN/CREATININE RATIO 9; CARBON DIOXIDE 21 MMOL/L (21-32); CHLORIDE 106 MMOL/L (98-107); CREATININE SERUM 0.97 MG/DL (0.60-1.30); GFR ESTIMATED > 60; GLUCOSE 81 MG/DL (70-105); POTASSIUM 3.9 MMOL/L (3.6-5.0); SODIUM 136 MMOL/L (135-145); TOTAL PROTEIN 7.2 GM/DL (6.4-8.2)
== END 2020-11-07 | disposition home or self-care (01) ==
LOC: ONC 14:49
PROVIDERS: ATTEND Internal Medicine Hematology & Oncology
DX: C90.30 Solitary plasmacytoma not having achieved remission (principal); Z92.3 Personal history of irradiation; Z94.81 Bone marrow transplant status
CPT/HCPCS: 80053; 82232; 82784 ×3; 83735; 83883; 85025; G0463; 82306; 84155; 84165; 99213

== ENCOUNTER → 2020-11-14 | Outpatient (CLI) | payer BC | LOC: LAB 08:36 | PROVIDERS: ATTEND Student in an Organized Health Care Education/Training Program | DX: C90.01 Multiple myeloma in remission (principal); Z94.84 Stem cells transplant status | CPT/HCPCS: 36415; 83497 ==

== ENCOUNTER 2021-01-03 13:47 | Outpatient (RCR) | payer BC ==
[2020-11-08 14:30] LABS: BASOPHILS # (AUTO) 0.1 10^3/uL (0.0-0.1); BASOPHILS % (AUTO) 1 % (0-10); EOSINOPHILS # (AUTO) 0.5 10^3/uL (0.0-0.3); EOSINOPHILS % (AUTO) 7 % (0-10); HEMATOCRIT 40 % (40-54); HEMOGLOBIN 13.3 g/dL (13.3-17.7); LYMPHOCYTES # (AUTO) 2.5 10^3/uL (1.0-4.0); LYMPHOCYTES % (AUTO) 32 % (12-44); MEAN CORPUSCULAR HEMOGLOBIN 34 pg (25-34); MEAN CORPUSCULAR HGB CONC 34 g/dL (32-36); MEAN CORPUSCULAR VOLUME 100 fL (80-99); MEAN PLATELET VOLUME 9.9 fL (9.0-12.2); MONOCYTES # (AUTO) 0.6 10^3/uL (0.0-1.0); MONOCYTES % (AUTO) 8 % (0-12); NEUTROPHILS # (AUTO) 4.2 10^3/uL (1.8-7.8); NEUTROPHILS % (AUTO) 52 % (42-75); PLATELET COUNT 264 10^3/uL (130-400); WHITE BLOOD COUNT 7.9 10^3/uL (4.3-11.0)
[2020-11-08 14:56] LABS: ALANINE AMINOTRANSFERASE 19 U/L (0-55); ALKALINE PHOSPHATASE 96 U/L (40-136); BILIRUBIN,TOTAL 0.3 MG/DL (0.1-1.0); BUN/CREATININE RATIO 9; CARBON DIOXIDE 21 MMOL/L (21-32); CHLORIDE 106 MMOL/L (98-107); CREATININE SERUM 0.97 MG/DL (0.60-1.30); GFR ESTIMATED > 60; GLUCOSE 81 MG/DL (70-105); POTASSIUM 3.9 MMOL/L (3.6-5.0); SODIUM 136 MMOL/L (135-145); TOTAL PROTEIN 7.2 GM/DL (6.4-8.2)
[2020-12-06 11:09] LABS: BASOPHILS # (AUTO) 0.2 10^3/uL (0.0-0.1); BASOPHILS % (AUTO) 2 % (0-10); EOSINOPHILS # (AUTO) 0.4 10^3/uL (0.0-0.3); EOSINOPHILS % (AUTO) 5 % (0-10); HEMATOCRIT 45 % (40-54); HEMOGLOBIN 15.3 g/dL (13.3-17.7); LYMPHOCYTES # (AUTO) 3.6 10^3/uL (1.0-4.0); LYMPHOCYTES % (AUTO) 44 % (12-44); MEAN CORPUSCULAR HEMOGLOBIN 34 pg (25-34); MEAN CORPUSCULAR HGB CONC 34 g/dL (32-36); MEAN CORPUSCULAR VOLUME 99 fL (80-99); MEAN PLATELET VOLUME 10.1 fL (9.0-12.2); MONOCYTES # (AUTO) 0.7 10^3/uL (0.0-1.0); MONOCYTES % (AUTO) 8 % (0-12); NEUTROPHILS # (AUTO) 3.3 10^3/uL (1.8-7.8); NEUTROPHILS % (AUTO) 40 % (42-75); PLATELET COUNT 304 10^3/uL (130-400); WHITE BLOOD COUNT 8.1 10^3/uL (4.3-11.0)
[2020-12-06 11:33] LABS: ALANINE AMINOTRANSFERASE 18 U/L (0-55); ALBUMIN 4.4 GM/DL (3.2-4.5); ALKALINE PHOSPHATASE 70 U/L (40-136); BILIRUBIN,TOTAL 0.3 MG/DL (0.1-1.0); BUN/CREATININE RATIO 14; CALCIUM 9.4 MG/DL (8.5-10.1); CARBON DIOXIDE 23 MMOL/L (21-32); CHLORIDE 106 MMOL/L (98-107); CREATININE SERUM 1.02 MG/DL (0.60-1.30); GFR ESTIMATED > 60; GLUCOSE 109 MG/DL (70-105); MAGNESIUM 2.2 MG/DL (1.6-2.4); POTASSIUM 3.9 MMOL/L (3.6-5.0); SODIUM 137 MMOL/L (135-145); TOTAL PROTEIN 7.5 GM/DL (6.4-8.2)
[~2021-01-03 13:47] MED LIST changes: -ACYC400T PO; +ACYC400T21 PO; -SULF1TAB35 PO; +SULF1TAB38 PO
[2021-01-03 14:03] LABS: BASOPHILS # (AUTO) 0.1 10^3/uL (0.0-0.1); BASOPHILS % (AUTO) 1 % (0-10); EOSINOPHILS # (AUTO) 0.6 10^3/uL (0.0-0.3); EOSINOPHILS % (AUTO) 7 % (0-10); HEMATOCRIT 41 % (40-54); LYMPHOCYTES % (AUTO) 37 % (12-44); MEAN CORPUSCULAR HEMOGLOBIN 34 pg (25-34); MEAN CORPUSCULAR HGB CONC 34 g/dL (32-36); MEAN CORPUSCULAR VOLUME 99 fL (80-99); MEAN PLATELET VOLUME 9.8 fL (9.0-12.2); MONOCYTES # (AUTO) 0.7 10^3/uL (0.0-1.0); MONOCYTES % (AUTO) 8 % (0-12); NEUTROPHILS # (AUTO) 3.9 10^3/uL (1.8-7.8); NEUTROPHILS % (AUTO) 48 % (42-75); PLATELET COUNT 268 10^3/uL (130-400); WHITE BLOOD COUNT 8.3 10^3/uL (4.3-11.0)
[2021-01-03 14:19] LABS: ALANINE AMINOTRANSFERASE 18 U/L (0-55); ALKALINE PHOSPHATASE 68 U/L (40-136); BILIRUBIN,TOTAL 0.2 MG/DL (0.1-1.0); BUN/CREATININE RATIO 15; CALCIUM 9.4 MG/DL (8.5-10.1); CARBON DIOXIDE 21 MMOL/L (21-32); CHLORIDE 109 MMOL/L (98-107); CREATININE SERUM 0.91 MG/DL (0.60-1.30); GFR ESTIMATED > 60; GLUCOSE 104 MG/DL (70-105); MAGNESIUM 2.1 MG/DL (1.6-2.4); SODIUM 139 MMOL/L (135-145); TOTAL PROTEIN 6.9 GM/DL (6.4-8.2)
[2021-01-09 15:24] LABS: IMMUNOFIX PATH REPORT NUMBER Complete (Complete)
== END 2021-02-06 | disposition home or self-care (01) ==
LOC: ONC 13:47
PROVIDERS: ATTEND Internal Medicine Hematology & Oncology
DX: C90.30 Solitary plasmacytoma not having achieved remission (principal); Z92.3 Personal history of irradiation; Z94.81 Bone marrow transplant status; Z72.0 Tobacco use; Z79.899 Other long term (current) drug therapy; Z79.82 Long term (current) use of aspirin; Z79.891 Long term (current) use of opiate analgesic; Z98.890 Other specified postprocedural states
CPT/HCPCS: 80053; 82232; 82784 ×3; 83735; 83883; 84165; 85025; G0463; 82306; 84155; 86334; 99213

== ENCOUNTER 2021-03-06 12:58 | Outpatient (RCR) | payer BC ==
[2021-03-06 13:34] LABS: BASOPHILS # (AUTO) 0.1 10^3/uL (0.0-0.1); BASOPHILS % (AUTO) 1 % (0-10); EOSINOPHILS # (AUTO) 0.2 10^3/uL (0.0-0.3); EOSINOPHILS % (AUTO) 3 % (0-10); HEMATOCRIT 43 % (40-54); HEMOGLOBIN 14.6 g/dL (13.3-17.7); LYMPHOCYTES # (AUTO) 2.5 10^3/uL (1.0-4.0); LYMPHOCYTES % (AUTO) 35 % (12-44); MEAN CORPUSCULAR HEMOGLOBIN 34 pg (25-34); MEAN CORPUSCULAR HGB CONC 34 g/dL (32-36); MEAN CORPUSCULAR VOLUME 99 fL (80-99); MEAN PLATELET VOLUME 9.9 fL (9.0-12.2); MONOCYTES # (AUTO) 0.7 10^3/uL (0.0-1.0); MONOCYTES % (AUTO) 9 % (0-12); NEUTROPHILS # (AUTO) 3.7 10^3/uL (1.8-7.8); NEUTROPHILS % (AUTO) 52 % (42-75); PLATELET COUNT 251 10^3/uL (130-400); WHITE BLOOD COUNT 7.2 10^3/uL (4.3-11.0)
[2021-03-06 13:56] LABS: ALBUMIN 4.3 GM/DL (3.2-4.5); BILIRUBIN,TOTAL 0.6 MG/DL (0.1-1.0); CALCIUM 9.9 MG/DL (8.5-10.1); CREATININE SERUM 0.91 MG/DL (0.60-1.30); MAGNESIUM 2.2 MG/DL (1.6-2.4); POTASSIUM 3.9 MMOL/L (3.6-5.0); TOTAL PROTEIN 7.9 GM/DL (6.4-8.2)
[2021-03-09 07:50] LABS: IMMUNOFIX PATH REPORT NUMBER Complete (Complete)
== END 2021-06-02 07:52 | disposition home or self-care (01) ==
LOC: ONC 12:58
PROVIDERS: ATTEND Internal Medicine Hematology & Oncology
DX: C90.00 Multiple myeloma not having achieved remission (principal); E55.9 Vitamin D deficiency, unspecified; Z92.3 Personal history of irradiation; Z92.21 Personal history of antineoplastic chemotherapy; Z94.81 Bone marrow transplant status; Z79.899 Other long term (current) drug therapy; Z72.0 Tobacco use
CPT/HCPCS: 80053; 82232; 82306; 82784 ×3; 83497; 83735; 83883; 84165; 85025; 86334; G0463; 84155; 99213

== ENCOUNTER → 2021-07-11 | Outpatient (CLI) | payer BC ==
--- NOTE | 2021-07-11 12:45 | Diagnostic Imaging Report ---
INDICATION: Multiple myeloma with restaging. TECHNIQUE: Serum blood glucose level at the time of injection was 84 mg/dL. Patient was administered 11.7 mCi F-18 FDG intravenously in the right antecubital location, and PET imaging was performed from the top of the skull to mid thighs. Noncontrast CT was also performed for attenuation correction and anatomic correlation. COMPARISON: Correlation is made with prior PET/CT study from 08/02/2020. FINDINGS: There is symmetric activity throughout the brain. There appears to be physiologic activity within the soft tissues of the neck. There is a small lymph node in the right supraclavicular location that does show some hypermetabolic activity with an SUV max of 3.9. Lymph node measures approximately 10 mm. No abnormal hypermetabolism within the chest is seen. Mediastinum and rebecca are unremarkable. There is physiologic activity in the GI and tracts. Vague residual activity at the L4 level within the L4 lesion is similar to prior exam. No new osseous lesions are identified. IMPRESSION: There is some new activity within a small lymph node in the right supraclavicular location. No other suspicious activity is identified when compared with prior PET/CT study from one year earlier. Dictated by: Dictated on workstation # [id number]
== END ==
LOC: RAD 09:00
PROVIDERS: ATTEND Internal Medicine Hematology & Oncology
DX: C90.00 Multiple myeloma not having achieved remission (principal)
CPT/HCPCS: 78815; A9552

== ENCOUNTER 2021-07-12 07:16 | Day surgery (SDC) | payer BC ==
[~2021-07-12] VITALS: Ht 172.2 cm; Wt 81.4 kg
[2021-07-12 08:00] VITALS: BP 140/73
[2021-07-12 08:33] LABS: ABSOLUTE RETIC # 45 10e9/uL (24-90); BASOPHILS # (AUTO) 0.1 10^3/uL (0.0-0.1); BASOPHILS % (AUTO) 1 % (0-10); EOSINOPHILS # (AUTO) 0.5 10^3/uL (0.0-0.3); EOSINOPHILS % (AUTO) 5 % (0-10); HEMATOCRIT 41 % (40-54); HEMOGLOBIN 14.3 g/dL (13.3-17.7); LYMPHOCYTES # (AUTO) 2.8 10^3/uL (1.0-4.0); LYMPHOCYTES % (AUTO) 31 % (12-44); MEAN CORPUSCULAR HEMOGLOBIN 34 pg (25-34); MEAN CORPUSCULAR HGB CONC 35 g/dL (32-36); MEAN CORPUSCULAR VOLUME 98 fL (80-99); MEAN PLATELET VOLUME 9.8 fL (9.0-12.2); MONOCYTES # (AUTO) 0.8 10^3/uL (0.0-1.0); MONOCYTES % (AUTO) 9 % (0-12); NEUTROPHILS # (AUTO) 4.9 10^3/uL (1.8-7.8); NEUTROPHILS % (AUTO) 54 % (42-75); PLATELET COUNT 298 10^3/uL (130-400); RETICULOCYTE % 1.06 % (0.50-2.40)
[2021-07-12] MEDS ORDERED: NS IV 1000 ML 1,000 ML IV STA (08:36)
[2021-07-12 08:44] LABS: PROTHROMBIN TIME PATIENT 13.2 SEC (12.2-14.7)
[2021-07-12] MEDS ORDERED: fentaNYL INJ 100 MCG/2 ML AMP IVP ONE (08:45)
[2021-07-12] MEDS ORDERED: MIDAZOLAM 2 MG/2 ML (VERSED) VIAL IVP ONE (08:45)
[2021-07-12] MEDS ORDERED: LIDOCAINE 1% INJ 20 ML 20 ML VIAL INJ ONE (08:45)
[2021-07-12 09:06] LABS: ANISOCYTOSIS SLIGHT; BAND NEUTROPHILS 0 %; BASOPHILS % (MANUAL) 0 %; EOSINOPHILS % (MANUAL) 4 %; LYMPHOCYTES % (MANUAL) 38 %; MONOCYTES % (MANUAL) 7 %; NEUTROPHILS % (MANUAL) 51 %
[2021-07-12 09:20] VITALS: BP 134/80
--- NOTE | 2021-07-12 09:56 | Pre-Op Note & Conscious Sedat ---
Pre-Operative Progress Note H&P Reviewed The H&P was reviewed, patient examined and no changes noted. Date H&P Reviewed: Jul 12, 2021 Time H&P Reviewed: 08:00 Pre-Op Diagnosis: multiple myeloma Conscious Sedation Pre-Proced Time 08:00 ASA Score 2 For ASA 3 and 4: Consider anesthesia and medical clearance. Also, for patients with a history of failed moderate sedation consider anesthesia. Airway Lungs Heart ASA score ASA 1: a normal healthy patient ASA 2: a patient with a mild systemic disease (mid diabetes, controlled hypertension, obesity ASA 3: a patient with a severe systemic disease that limits activity (angina, COPD, prior Myocardial infarction) ASA 4: a patient with an incapacitating disease that is a constant threat to life (CHF, renal failure) ASA 5: a moribund patient not expected to survive 24 hrs. (ruptured aneurysm) ASA 6: a declared brain- patient whose organs are being harvested. For emergent operations, add the letter E after the classification Mallampati Classification Grade 2 Sedation Plan Analgesia, Amnesia, Plan communicated to team members, Discussed options with makayla gautam/fam, Discussed risks with patient/fam The patient is an appropriate candidate to undergo the planned procedure, sedation, and anesthesia. The patient immediately re-assessed prior to indication. DOMINICK TOBIAS MD Jul 12, 2021 09:56
--- NOTE | 2021-07-12 10:06 | Diagnostic Imaging Report ---
INDICATION: Multiple myeloma. Patient presents for a CT-guided bone marrow aspiration biopsy. Patient brought to the CT suite placed on table in the prone position. Axial imaging through the pelvis was performed to evaluate appropriate entry site. Procedure was performed utilizing conscious sedation with radiology nursing and constipation monitoring. Patient was given a total of 50 mcg of fentanyl intravenously and 2 mg of Versed intravenously. Total procedure time 7 minutes. 11-gauge biopsy needle was advanced and placed with its tip along the posterior cortex of the right iliac bone. Needle was advanced through the cortex utilizing a bone marrow drill. 2 bone marrow aspirates were then obtained. Next, drill was used to obtain a bone marrow core biopsy. Needle was removed and hemostasis was obtained. Patient tolerated procedure well and left the department in stable condition. IMPRESSION: Successful CT-guided bone marrow aspiration and core biopsy, utilizing conscious sedation. Dictated by: Dictated on workstation # [id number]
[2021-07-12] MEDS ORDERED: HYDROcodone/APAP 5 MG/325 MG (LORTAB) TAB PO PRN (10:15)
[2021-07-12 10:25] VITALS: BP 122/71
[2021-07-12 10:30] VITALS: BP 119/69
[2021-07-12 11:00] VITALS: BP 120/78
[2021-07-12 12:15] VITALS: BP 120/78
== END 2021-07-12 12:29 ==
LOC: RAD 07:16 → SDC 09:45 → RAD 12:29
PROVIDERS: ATTEND Internal Medicine Hematology & Oncology
DX: C90.00 Multiple myeloma not having achieved remission (principal)
CPT/HCPCS: 36415; 38222; 77012; 85007; 85027; 85045; 85055; 85610; 85730; 99156

== ENCOUNTER 2021-07-26 16:10 | Outpatient (RCR) | payer BC ==
[2021-06-06 13:37] LABS: BASOPHILS # (AUTO) 0.1 10^3/uL (0.0-0.1); BASOPHILS % (AUTO) 1 % (0-10); EOSINOPHILS # (AUTO) 0.3 10^3/uL (0.0-0.3); EOSINOPHILS % (AUTO) 3 % (0-10); HEMATOCRIT 40 % (40-54); LYMPHOCYTES % (AUTO) 34 % (12-44); MEAN CORPUSCULAR HEMOGLOBIN 35 pg (25-34); MEAN CORPUSCULAR HGB CONC 35 g/dL (32-36); MEAN CORPUSCULAR VOLUME 99 fL (80-99); MONOCYTES # (AUTO) 0.8 10^3/uL (0.0-1.0); MONOCYTES % (AUTO) 9 % (0-12); NEUTROPHILS # (AUTO) 4.7 10^3/uL (1.8-7.8); NEUTROPHILS % (AUTO) 53 % (42-75); PLATELET COUNT 248 10^3/uL (130-400); WHITE BLOOD COUNT 8.8 10^3/uL (4.3-11.0)
[2021-06-06 14:02] LABS: ALBUMIN 4.2 GM/DL (3.2-4.5); BILIRUBIN,TOTAL 0.3 MG/DL (0.1-1.0); CALCIUM 9.2 MG/DL (8.5-10.1); CREATININE SERUM 0.89 MG/DL (0.60-1.30); TOTAL PROTEIN 7.5 GM/DL (6.4-8.2)
[2021-06-12 14:45] LABS: IMMUNOFIX PATH REPORT NUMBER Complete (Complete)
[2021-07-26 16:30] LABS: BASOPHILS # (AUTO) 0.1 10^3/uL (0.0-0.1); BASOPHILS % (AUTO) 1 % (0-10); EOSINOPHILS # (AUTO) 0.4 10^3/uL (0.0-0.3); EOSINOPHILS % (AUTO) 4 % (0-10); HEMATOCRIT 43 % (40-54); HEMOGLOBIN 14.6 g/dL (13.3-17.7); LYMPHOCYTES # (AUTO) 3.1 10^3/uL (1.0-4.0); LYMPHOCYTES % (AUTO) 32 % (12-44); MEAN CORPUSCULAR HEMOGLOBIN 34 pg (25-34); MEAN CORPUSCULAR HGB CONC 34 g/dL (32-36); MEAN CORPUSCULAR VOLUME 100 fL (80-99); MEAN PLATELET VOLUME 9.8 fL (9.0-12.2); MONOCYTES # (AUTO) 0.8 10^3/uL (0.0-1.0); MONOCYTES % (AUTO) 9 % (0-12); NEUTROPHILS # (AUTO) 5.3 10^3/uL (1.8-7.8); NEUTROPHILS % (AUTO) 54 % (42-75); PLATELET COUNT 293 10^3/uL (130-400); WHITE BLOOD COUNT 9.8 10^3/uL (4.3-11.0)
[2021-07-26 16:56] LABS: BILIRUBIN,TOTAL 0.3 MG/DL (0.1-1.0); CALCIUM 9.6 MG/DL (8.5-10.1); TOTAL PROTEIN 7.5 GM/DL (6.4-8.2)
[2021-08-01 11:11] LABS: IMMUNOFIX PATH REPORT NUMBER Complete (Complete)
== END 2021-07-28 | disposition home or self-care (01) ==
LOC: ONC 16:10
PROVIDERS: ATTEND Internal Medicine Hematology & Oncology
DX: C90.00 Multiple myeloma not having achieved remission (principal); E55.9 Vitamin D deficiency, unspecified; Z92.3 Personal history of irradiation; Z72.0 Tobacco use
CPT/HCPCS: 80053; 82232; 82306; 82784 ×3; 83735; 83883; 84165; 85025; 86334; G0463; 84155; 99213

== ENCOUNTER 2021-07-31 09:45 | Outpatient (RCR) | payer BC ==
[2021-07-31 12:28] LABS: PROTEIN URINE MG/DL < 6 MG/DL (6-12)
[2021-07-31 13:09] LABS: TOTAL VOLUME,URINE 800 ML
[2021-08-02 13:39] LABS: URINE IMMUNOFIXATION W/ INTERP Complete
== END 2021-08-28 | disposition home or self-care (01) ==
LOC: ONC 09:45
PROVIDERS: ATTEND Internal Medicine Hematology & Oncology
DX: C90.30 Solitary plasmacytoma not having achieved remission (principal); E55.9 Vitamin D deficiency, unspecified; Z92.3 Personal history of irradiation; Z72.0 Tobacco use
CPT/HCPCS: 84156; 84166; 86335

== ENCOUNTER → 2023-02-06 | Outpatient (CLI) | payer BC | LOC: PREOP 05:37 | PROVIDERS: ATTEND Surgery | DX: Z01.818 Encounter for other preprocedural examination (principal); Z86.010 Personal history of colon polyps ==

== ENCOUNTER 2023-02-19 07:16 | Day surgery (SDC) | payer BC ==
[~2023-02-19] VITALS: Ht 170.2 cm; Wt 73.5 kg
[~2023-02-19 07:16] MED LIST changes: +ACYC-112 PO; +CALC-78 PO; +[UNRECOGNIZED DRUG - CODE] PO
[2023-02-19] MEDS ORDERED: LACTATED RINGERS 1,000 ML IV STA (07:27)
[2023-02-19 07:35] VITALS: BP 133/81
[2023-02-19] MEDS ORDERED: PROPOFOL INJECTION 50 ML IV ONE (08:37)
[2023-02-19] MEDS ORDERED: MIDAZOLAM 2 MG/2 ML (VERSED) VIAL ONE (08:37)
[2023-02-19 09:15] VITALS: BP 100/53
--- NOTE | 2023-02-19 09:15 | Progress Note-Post Operative ---
Post-Operative Progess Note Surgeon (s)/Assembler Mechanical [employer]dnance (s) Surgeon CHUY BURT DO As[employer]: na Pre-Operative Diagnosis hx polyps Post-Operative Diagnosis colon polyps Procedure & Operative Findings Date of Procedure 02/19/23 Procedure Performed/Findings colonoscopy c hot bx polypectomy x 2 Anesthesia Type per asw specialist Estimated Blood Loss Estimated blood loss (mL): none Specimens/Packing Specimens Removed colon polyps CHUY BURT DO Feb 19, 2023 09:15
--- NOTE | 2023-02-19 09:17 | Discharge Inst-Simple/Standard ---
Discharge Inst-Standard Patient Instructions/Follow Up Plan of Care/Instructions/FU: 2 weeks adal Activity as Tolerated: Yes Discharge Diet: Regular Diet CHUY BURT DO Feb 19, 2023 09:17
[2023-02-19 09:25] VITALS: BP 130/60
[2023-02-19 09:56] VITALS: BP 130/60
--- NOTE | 2023-02-19 11:36 | Anesthesia-General Post-Op ---
MAC Patient Condition Mental Status/LOC: Same as Preop Cardiovascular: Satisfactory Nausea/Vomiting: Absent Respiratory: Satisfactory Pain: Controlled Complications: Absent Post Op Complications Complications None Follow Up Care/Instructions Patient Instructions None needed. Anesthesiology Discharge Order Discharge Order Patient is doing well, no complaints, stable vital signs, no apparent adverse anesthesia problems. No complications reported per nursing. LIEN ALICEA CRNA Feb 19, 2023 11:36
--- NOTE | 2023-02-19 13:53 | OPERATIVE REPORT ---
DATE OF SERVICE: 02/19/2023 PREOPERATIVE DIAGNOSIS: History of polyps. POSTOPERATIVE DIAGNOSIS: Colon polyps. PROCEDURE: Colonoscopy with hot biopsy polypectomy x2. SURGEON: Chuy Elias DO ANESTHESIA: Per PATROL MOTHER. ESTIMATED BLOOD LOSS: None. COMPLICATIONS: None. INDICATIONS: The patient is a 58-year-old male with history of polyps. He understands risks and benefits of procedure and wished to proceed. Consent was signed in chart. DESCRIPTION OF PROCEDURE: The patient was taken to endoscopy suite, placed in left lateral recumbent position. Timeout was performed. Digital rectal exam was performed. No palpable polyps, masses or ulcerations. Scope was inserted in the rectum and advanced all the way to the cecum with minimal difficulty. Prep was adequate. Scope was slowly retracted back. No polyps, masses or ulcerations in the cecum, ascending, transverse and descending colon. In the sigmoid colon, small polyp was present, which hot biopsy polypectomy was performed. Scope was then continuously retracted back into the rectum where another small polyp was present, which hot biopsy polypectomy was performed. Scope was then retroflexed, noting no other pathology. Scope was returned to its normal position, slowly withdrawn until completely removed. The patient tolerated the procedure well with no complications, taken to recovery room in stable condition. RECOMMENDATIONS: The patient will need repeat colonoscopy in 5 years. Any issues before that, be seen at that time. The patient will follow up in 2 weeks to discuss pathology results. Job ID: [id number] DocumentID: [id number] Dictated Date: 02/19/2023 09:17:09 Dental Ceramist Assistant Date: 02/19/2023 13:51:00 Dictated By: CHUY ELIAS DO
== END 2023-02-19 09:40 | disposition home or self-care (01) ==
LOC: ENDO 07:16
PROVIDERS: ATTEND Surgery
DX: Z12.11 Encounter for screening for malignant neoplasm of colon (principal); D12.8 Benign neoplasm of rectum; K63.5 Polyp of colon; Z79.02 Long term (current) use of antithrombotics/antiplatelets; F17.210 Nicotine dependence, cigarettes, uncomplicated; Z94.81 Bone marrow transplant status